=== PATIENT | male | born 1955 | race Caucasian/White ===

== ENCOUNTER → 2018-03-27 14:29 | Outpatient (CLI) | payer OTHER, SELFPAY ==
[2018-03-27 15:27] LABS: BUN Creatinine Ratio 18.8 (6-22); Blood Urea Nitrogen 15 mg/dL (9-20); Calcium 9.4 mg/dL (8.4-10.2); Carbon Dioxide 27 mmol/L (22-32); Chloride 102 mmol/L (98-107); Estimated Glomerular Filt Rate > 60.0 mL/min (>60); Glucose 80 mg/dL (80-110); HEMOLYSIS < 15 (0-50); Potassium 3.7 mmol/L (3.4-5.1); Sodium 141 mmol/L (137-145)
== END ==
PROVIDERS: Family Provider Family Medicine; PCP Family Medicine; Visit Provider Specialist
DX: R31.0 Gross hematuria (principal)
CPT/HCPCS: 36415; 80048

== ENCOUNTER → 2018-03-28 10:34 | Outpatient (CLI) | payer OTHER, SELFPAY ==
--- NOTE | 2018-03-28 | DI.CT.S_ITS ---
PROCEDURE: CT ABDOMEN PELVIS WO/W CON INDICATIONS: HEMATURIA. The patient gives an additional history of chronic left flank pain. TECHNIQUE: Optional 5 mm thick noncontrast images acquired from the diaphragm to the symphysis pubis. After the administration of intravenous contrast, 5 mm thick images acquired from the diaphragm to the symphysis pubis after a 10-minute delay. 2 mm thick coronal and sagittal reformats were then performed of the kidneys and ureters. For radiation dose reduction, the following was used: automated exposure control, adjustment of mA and/or kV according to patient size. COMPARISON: [facility], CT, ABDOMEN/PELVIS WITH CONTRAST, 03/31/2014, 8:16. FINDINGS: Image quality: Excellent. Lung bases: Within the right middle lobe, there is a poorly defined focus of subpleural soft tissue opacity measuring 6 mm, as on series 6 image 4. The lung bases otherwise appear clear. Heart size is normal. No pericardial effusions are seen. Urinary system: On noncontrast imaging, there is a 2-3 mm stone seen within the left mid ureter, as on series 2 image 41. There is associated mild left-sided hydronephrosis and hydroureter. No definite nonobstructing stones can be seen within either kidney. The kidneys demonstrate normal size. Along the superior medial aspect of the right kidney, there is a nonenhancing, water density cyst seen that measures 4.4 cm. A water density 16 mm nonenhancing cyst is seen involving the anterior superior pole of the left kidney. When filled with contrast, the renal calyces demonstrate a normal appearance. No ureteral masses are detected. No bladder stones or bladder masses can be seen. An apparent TURP defect can be seen at the base of the bladder. Other solid organs: Liver is normal in size and enhancement. Gallbladder wall is not thickened. Biliary system is non dilated. Pancreas enhances normally. Spleen is normal in size and enhancement. No adrenal nodules. Peritoneum and bowel: Bowel loops demonstrate normal wall thickness and caliber. No free fluid or air. Incidental note is made of a normal-appearing appendix. Diverticulosis is seen, without findings of active diverticulitis. Nodes and vessels: No retroperitoneal or mesenteric adenopathy by size criteria. Aorta and inferior vena cava are normal in size. Atherosclerotic calcification is noted. Abdominal wall: No ventral hernias. Pelvis: No pathologic free pelvic fluid. No inguinal hernias or adenopathy. Bones: No suspicious bony lesions. No vertebral body compression fractures. IMPRESSION: 2-3 mm stone seen within the left mid ureter, with associated mild left-sided hydronephrosis and hydroureter. There is a 6 mm subpleural right middle lobe soft tissue nodule seen. This is felt most likely be related to scarring or a subpleural lymph node. However, please consider a dedicated chest CT with contrast to evaluate for additional potential pulmonary nodules. Incidental note is made of: Simple appearing bilateral renal cysts Apparent TURP defect Diverticulosis is seen, without findings of active diverticulitis. Dictated by: Jeramy Munroe M.D. on 03/28/2018 at 10:22 Approved by: Jeramy Munroe M.D. on 03/28/2018 at 10:30
== END ==
PROVIDERS: PCP Family Medicine; Visit Provider Specialist
DX: N13.2 Hydronephrosis with renal and ureteral calculous obstruction (principal); R10.9 Unspecified abdominal pain; N28.1 Cyst of kidney, acquired; R59.1 Generalized enlarged lymph nodes; K57.30 Diverticulosis of large intestine without perforation or abscess without bleeding; R31.9 Hematuria, unspecified
CPT/HCPCS: 74178; Q9967

== ENCOUNTER 2019-03-24 18:47 | Emergency (ER) | payer OTHER, SELFPAY ==
[2019-03-24] VITALS (8 sets, daily range): BP systolic 101–124; BP diastolic 72–98; PULSE 93–156; RESP 12–20; TEMP 37; O2SAT 93–100
--- NOTE | 2019-03-24 18:53 | DI.RAD.S_ITS ---
PROCEDURE: XR CHEST 1V INDICATIONS: chest pain TECHNIQUE: One view of the chest was acquired. COMPARISON: None. FINDINGS: Surgical changes and devices: None. Lungs and pleura: Lungs are clear. No pleural effusions or pneumothorax. Mediastinum: Mediastinal contours appear normal. Heart size is normal. Bones and chest wall: No suspicious bony lesions. Overlying soft tissues appear unremarkable. IMPRESSION: No acute cardiopulmonary process is evident. Dictated by: John Frias M.D. on 03/24/2019 at 19:31 Approved by: John Frias M.D. on 03/24/2019 at 19:32
[2019-03-24 19:09] LABS: Add Manual Diff / Slide Review NO; Basophils Absolute Auto 100 /uL (0-100); Basophils Percent Auto 1.1 % (0-2); Eosinophils Absolute Auto 100 /uL (0-450); Hematocrit 44.2 % (41-53); Hemoglobin 15.4 g/dL (13.5-17.5); Lymphocytes Absolute Auto 1800 /uL (1100-4500); Lymphocytes Percent Auto 17.5 % (25-40); Mean Corpuscular HGB Conc 34.9 % (30-36); Mean Corpuscular Hemoglobin 32.4 PG (26-34); Mean Corpuscular Volume 92.9 fL (80-100); Monocytes Absolute Auto 800 /uL (0-900); Monocytes Percent Auto 7.6 % (3-14); Neutrophils Absolute Auto 7300 /uL (1500-7000); Neutrophils Percent Auto 72.8 % (50-75); Platelet Count 308 X10^3/uL (150-400); Red Blood Cell Count 4.76 X10^6/uL (4.5-5.9); Red Cell Distribution Width 13.3 % (11.6-14.8)
[2019-03-24 19:22] LABS: Prothrombin Time 11.4 SECONDS (10.1-12.7)
[2019-03-24 19:23] LABS: Alanine Aminotransferase 29 IU/L (21-72); Albumin 4.5 g/dL (3.5-5.0); Albumin Globulin Ratio 1.6 (1.0-2.8); Alkaline Phosphatase 71 U/L (38-126); Aspartate Aminotransferase 28 IU/L (17-59); BUN Creatinine Ratio 12.5 (6-22); Bilirubin Total 1.1 mg/dL (0.2-1.3); Blood Urea Nitrogen 15 mg/dL (9-20); Calcium 9.4 mg/dL (8.4-10.2); Carbon Dioxide 23 mmol/L (22-32); Chloride 105 mmol/L (98-107); Creatine Kinase 238 U/L (55-170); Estimated Glomerular Filt Rate > 60.0 mL/min (>60); Globulin 2.9 g/dL (1.7-4.1); Glucose 94 mg/dL (80-110); HEMOLYSIS < 15 (0-50); Lipase 167 U/L (23-300); Potassium 3.6 mmol/L (3.4-5.1); Sodium 138 mmol/L (137-145); Total Protein 7.4 g/dL (6.3-8.2)
[2019-03-24 19:25] LABS: PTT Partial Thromboplastin Tim 38 SECONDS (26.4-36.2)
--- NOTE | 2019-03-24 19:27 | ED.ARRPALP ---
HPI - Arrhythmia/Palpitations General Chief Complaint: Arrhythmia/Palpitations Stated Complaint: FAST PULSE Time Seen by Provider: 03/24/19 18:52 Source: patient Mode of arrival: ambulatory Limitations: no limitations History of Present Illness HPI narrative: Patient is a 63-year-old male who presents with heart palpitations. He has a history of atrial fibrillation. He is taking diltiazem he also has cardiac stents. He has a heart rate noted to be 150 in the ED. He said he noticed it initially and it was in the 180s. He tried to do Valsalva maneuvers at home it did not really help. However nursing got him to do some prior to my arrival and he is now covered sinus rhythm overall feeling better. He was having shortness of breath with the episode. No chest pain no dizziness. MD complaint: rapid heart beat and heart racing Related Data Home Medications Medication Instructions Recorded Confirmed aspirin 81 mg PO QDAY #30 tab 06/02/16 03/24/19 hydralazine 25 mg PO TID #0 06/02/16 03/24/19 atorvastatin 40 mg PO DAILY 03/24/19 03/24/19 carvedilol 12.5 mg PO BID 03/24/19 03/24/19 clopidogrel 75 mg PO DAILY 03/24/19 03/24/19 diltiazem HCl 180 mg PO DAILY 03/24/19 03/24/19 nitroglycerin 1 patch TRANSDERMAL DAILY 03/24/19 03/24/19 pantoprazole 40 mg PO DAILY 03/24/19 03/24/19 ramipril 10 mg PO DAILY 03/24/19 03/24/19 ranolazine 500 mg PO BID 03/24/19 03/24/19 spironolactone 25 mg PO DAILY 03/24/19 03/24/19 Allergies Allergy/AdvReac Type Severity Reaction Status Date / Time No Known Drug Allergies Allergy Verified 03/24/19 19:34 Review of Systems Review of Systems ROS Unobtainable: All systems reviewed & are unremarkable except as noted in HPI and below Constitutional Denies chills, Denies fever(s), Denies lethargy and Denies weakness Eyes Denies change in vision, Denies eye discharge, Denies irritation and Denies loss of vision ENT Ears, Nose, Mouth, and Throat: Denies change in voice, Denies neck pain and Denies sore throat Cardiovascular Reports as per HPI, Denies dyspnea and Denies dyspnea on exertion Respiratory Denies cough, Denies dyspnea, Denies dyspnea on exertion and Denies wheezing Gastrointestinal Gastrointestinal: Denies abdominal pain, Denies change in bowel habits, Denies diarrhea, Denies nausea and Denies vomiting Genitourinary Denies hematuria, Denies flank pain, Denies urinary incontinence and Denies urinary urgency Musculoskeletal Denies neck pain Integumentary/Breasts Denies pruritus, Denies erythema, Denies rash and Denies wounds Neurologic Denies loss of vision and Denies weakness Allergic/Immunologic Denies wheezing [facility] Medical History Atrial fibrillation (Acute) Social History Smoking Status: Current every day smoker Social History Smoking Status: Current every day smoker Exam Initial Vital Signs Initial Vital Signs: Vital Signs Temperature 98.6 F 03/24/19 18:50 Pulse Rate 156 H 03/24/19 18:50 Respiratory Rate 20 03/24/19 18:50 Blood Pressure 124/76 03/24/19 18:50 Pulse Oximetry 99 03/24/19 18:50 GENERAL: Alert pleasant appears older than stated age no acute distress HEENT: Head atraumatic,EOMI, pupils reactive, face symmetric, moist mucous membranes CARDIOVASCULAR: Regular rate and rhythm without murmurs, rubs or gallops. RESPIRATORY: Breath sounds equal bilaterally, no wheezes rales or rhonchi. ABDOMEN: Soft, nontender. Normoactive bowel sounds all 4 quadrants. No guarding or rebound. EXTREMITIES: Normal range of motion, no clubbing or edema. Neurovascularly intact NEUROLOGICAL: Alert and oriented x4.Normal gait and speech. Cranial nerves II through XII grossly intact. SKIN: Warm, dry, no laceration, no petechiae, no rashes or lesions. Course Orders Ordered: ED Orders 03/24/19 18:53 XR chest 1V Stat EKG-12 Lead Stat 03/24/19 19:00 Complete Blood Count AUTO DIFF Stat Comprehensive Metabolic Panel Stat Lipase Stat Partial Thromboplastin Time Stat Prothrombin Time INR Stat Troponin & CK Cardiac Panel Stat Discontinued Medications Sodium Chloride (Normal Saline 0.9%) 1,000 mls @ 150 mls/hr IV CONT MARCO A Last Infusion: 03/24/19 20:33 Dose: 0 mls/hr Admin: 03/24/19 19:33 Dose: 150 mls/hr Vital Signs - 8 hr 03/24/19 18:50 03/24/19 18:55 03/24/19 19:00 Temperature 98.6 F Pulse Rate 150 H 100 H 102 H Respiratory Rate 15 12 12 Blood Pressure 124/76 Blood Pressure [Left Arm] 124/76 112/98 H 118/92 H Pulse Oximetry 100 100 100 03/24/19 19:05 03/24/19 19:10 03/24/19 19:15 Temperature Pulse Rate 98 H 98 H 97 H Respiratory Rate 14 16 12 Blood Pressure Blood Pressure [Left Arm] 112/81 103/72 101/78 Pulse Oximetry 98 98 98 03/24/19 19:30 03/24/19 20:04 Temperature Pulse Rate 98 H 93 H Respiratory Rate 14 13 Blood Pressure Blood Pressure [Left Arm] 124/81 118/81 Pulse Oximetry 93 93 MDM - Arrhythmia/Palpitations Lab Data Attestation: I reviewed the patient's lab results. Result diagrams: 03/24/19 19:00 03/24/19 19:00 Lab Results 03/24/19 03/24/19 03/24/19 Range/Units 19:00 19:00 19:00 WBC 10.0 (4.5-11.0) X10^3/uL RBC 4.76 (4.5-5.9) X10^6/uL Hgb 15.4 (13.5-17.5) g/dL Hct 44.2 (41-53) % MCV 92.9 (80-100) fL MCH 32.4 (26-34) PG MCHC 34.9 (30-36) % RDW 13.3 (11.6-14.8) % Plt Count 308 (150-400) X10^3/uL Neut % (Auto) 72.8 (50-75) % Lymph % (Auto) 17.5 L (25-40) % [place] % (Auto) 7.6 (3-14) % Eos % (Auto) 1.0 L (2-4) % Baso % (Auto) 1.1 (0-2) % Neut # (Auto) 7300 H (1703-6511) /uL Lymph # (Auto) 1800 (6359-5482) /uL Haakon # (Auto) 800 (0-900) /uL Eos # (Auto) 100 (0-450) /uL Baso # (Auto) 100 (0-100) /uL PT 11.4 (10.1-12.7) SECONDS INR 1.0 (0.9-1.3) APTT 38 H (26.4-36.2) SECONDS Sodium 138 (137-145) mmol/L Potassium 3.6 (3.4-5.1) mmol/L Chloride 105 (98-107) mmol/L Carbon Dioxide 23 (22-32) mmol/L BUN 15 (9-20) mg/dL Creatinine 1.20 (0.66-1.25) mg/dL Estimated GFR > 60.0 (>60) mL/min BUN/Creatinine Ratio 12.5 (6-22) Glucose 94 (80-110) mg/dL Calcium 9.4 (8.4-10.2) mg/dL Total Bilirubin 1.1 (0.2-1.3) mg/dL AST 28 (17-59) IU/L ALT 29 (21-72) IU/L Alkaline Phosphatase 71 (38-126) U/L Total Creatine Kinase 238 H (55-170) U/L CK-MB (CK-2) 5.15 H (<2.37) ng/mL CK-MB (CK-2) Rel Index 2.2 (1.5-5.0) % Troponin I < 0.012 (0.01-0.034) ng/mL Total Protein 7.4 (6.3-8.2) g/dL Albumin 4.5 (3.5-5.0) g/dL Globulin 2.9 (1.7-4.1) g/dL Albumin/Globulin Ratio 1.6 (1.0-2.8) Lipase 167 (23-300) U/L Urine Dip Bedside Urine Glucose Negative Bedside Urine Bilirubin - Negative Bedside Urine Ketone +/- 5 Urine Specific [place] 1.015 Bedside Urine Occult Blood - Negative Bedside Urine pH 7.0 Bedside Urine Protein +/- 15 Bedside Urine Urobilinogen - Negative Bedside Urine Nitrite - Negative Bedside Urine Leukocytes - Negative Esterase Imaging Data Chest x-ray: Radiologist's impression: PROCEDURE: XR CHEST 1V INDICATIONS: chest pain TECHNIQUE: One view of the chest was acquired. COMPARISON: None. FINDINGS: Surgical changes and devices: None. Lungs and pleura: Lungs are clear. No pleural effusions or pneumothorax. Mediastinum: Mediastinal contours appear normal. Heart size is normal. Bones and chest wall: No suspicious bony lesions. Overlying soft tissues appear unremarkable. IMPRESSION: No acute cardiopulmonary process is evident. Dictated by: John Frias M.D. on 03/24/2019 at 19:31 Approved by: John Frias M.D. on 03/24/2019 at 19:3 ECG Data Attestation: I personally reviewed and interpreted this ECG as follows: Prior ECG tracings: available for review Interpretation: EKG 1. Atrial fibrillation with 1:[address] changes EKG 2. Normal sinus rhythm rate [address] changes or T-wave inversions MDM Narrative Medical decision making narrative: Patient has remained in sinus rhythm. Blood work is reassuring. Recommend he follow up with his PCP. Discharge Plan Departure Patient Disposition: Home Clinical Impression: Atrial fibrillation Qualifiers: Atrial fibrillation type: paroxysmal Qualified Code(s): I48.0 - Paroxysmal atrial fibrillation Discharge Date/Time: 03/24/19 20:44 Interventions: ED Discharge Assessment Last Done: 03/24/19 20:43 Instructions: DI for Atrial Fibrillation Activity Restrictions/Additional Instructions: *You have been diagnosed with atrial fibrillation *What to do: Try bearing down at home if this should happen again. If you continue to have frequent episodes he may require evaluation by Cardiology *Continue to take medications as directed *Follow up with your primary care provider in 2-3 days *Return to ER if you should have heart palpitations dizziness passing or any new, worsening or concerning symptoms Prescriptions: No Action aspirin 81 MG tablet,delayed release (DR/EC) 81 mg PO QDAY Qty: 30 RF: 0 hydralazine 25 MG tablet 25 mg PO TID Qty: 0 RF: 0 atorvastatin 40 mg Tablet 40 mg PO DAILY RF: 0 carvedilol 12.5 mg Tablet 12.5 mg PO BID RF: 0 diltiazem HCl 180 mg Capsule,Extended Release 24 Hr 180 mg PO DAILY RF: 0 clopidogrel 75 mg Tablet 75 mg PO DAILY RF: 0 spironolactone 25 mg Tablet 25 mg PO DAILY RF: 0 nitroglycerin 0.4 mg/hr Patch 24 Hour 1 patch TRANSDERMAL DAILY RF: 0 pantoprazole 40 mg Tablet,Delayed Release (Dr/Ec) 40 mg PO DAILY RF: 0 ramipril 10 mg Capsule 10 mg PO DAILY RF: 0 ranolazine 500 mg Tablet Extended Release 12 Hr 500 mg PO BID RF: 0 Referrals: David Moore MD [Primary Care Provider] -
[2019-03-24] MEDS: SODIUM CHLORIDE 0.9% 1,000 ML 150 ML IV (19:33)
[2019-03-24 19:35] LABS: Troponin I < 0.012 ng/mL (0.01-0.034)
[2019-03-24 19:38] LABS: CKMB % Relative Index 2.2 % (1.5-5.0); Creatine Kinase MB 5.15 ng/mL (<2.37)
== END 2019-03-24 20:44 | disposition home or self-care (01) ==
PROVIDERS: Emergency Provider Emergency Medicine; PCP Family Medicine
DX: I48.0 Paroxysmal atrial fibrillation (principal); Z95.818 Presence of other cardiac implants and grafts
CPT/HCPCS: 36591; 71045; 80053; 81003; 82550; 82553; 83690; 84484; 85025; 85610; 85730; 93005; 93041; 96360; 99285

== ENCOUNTER → 2020-05-19 08:00 | Outpatient (CLI) | payer OTHER, SELFPAY ==
--- NOTE | 2020-05-19 | DI.US.S_ITS ---
PROCEDURE: US ABD AORTA ANEURYSM SCREEN INDICATIONS: Cigerette smoker/Hypertension TECHNIQUE: Real time scanning was performed of the aorta and iliac arteries, with image documentation. COMPARISON: [facility], CT, CT ABDOMEN PELVIS WO/W URIAH, 03/28/2018, 10:40. FINDINGS: Aorta: Proximal aortic diameter measures 3 cm. Mid-aorta measures 2.3 cm. Distal aortic diameter is 2 cm. Iliac arteries: Right common iliac artery measures 2 cm. Left common iliac artery measures 2.2 cm. Moderate calcified atherosclerotic plaque. IMPRESSION: 1. No abdominal aortic aneurysm. 2. Ectasia of the common iliac arteries. Follow-up ultrasound in 3 years is recommended. Dictated by: Fidencio Hamilton M.D. on 05/19/2020 at 10:11 Approved by: Fidencio Hamilton M.D. on 05/19/2020 at 10:14
== END ==
PROVIDERS: PCP Student in an Organized Health Care Education/Training Program; Referring Provider Student in an Organized Health Care Education/Training Program; Visit Provider Student in an Organized Health Care Education/Training Program
DX: Z13.6 Encounter for screening for cardiovascular disorders (principal); I10 Essential (primary) hypertension; I77.89 Other specified disorders of arteries and arterioles; F17.210 Nicotine dependence, cigarettes, uncomplicated
CPT/HCPCS: 76706

== ENCOUNTER 2021-05-02 13:30 | Outpatient (RCR) | payer OTHER, SELFPAY ==
--- NOTE | 2021-03-24 16:03 | PT.OIE ---
Current Diagnoses Muscle weakness (generalized) (03/24/21) Other synovitis and tenosynovitis, unspecified shoulder (03/24/21) Abnormal posture (03/24/21) Past Medical History (Last Reviewed 03/24/19 @ 20:09 by Criselda Herman DO) Atrial fibrillation Visit Care Team Role Provider Type Amanda Diop MD Attending Provider Physician Primary Care Provider Referring Provider Specialty: [facility] Address: [address] [place] [address], [facility] [place], [facility] Email: [email or web address] Physical Therapy Initial Evaluation PT-OP-A Visit Information Start: 03/24/21 08:11 Freq: Status: Active Protocol: Document 03/24/21 14:17 LRN (Rec: 03/24/21 15:55 LRN [id number]) Out-Patient Physical Therapy Visit Information Visit Information Visit Type Initial Evaluation Visit Start Time 14:17 Visit Stop Time 15:13 Total Visit Minutes 56 Visit Number 1 Evaluation Information Evaluation Date 03/24/21 Precautions Precautions Controlled HBP 2 Stents in heart 4-5 yrs ago. PT-OP-B Current Condition Start: 03/24/21 08:11 Freq: Status: Active Protocol: Document 03/24/21 14:17 LRN (Rec: 03/24/21 15:55 LRN [id number]) Current Condition History of Current Condition Onset Date 1 yr ago Current Complaints L shoulder pain History of Current Condition Pt was crab and sport fishing and found he was constantly turning the wheel of the boat and that is when he started to feel discomfort in the L shoulder. His L shoulder has progressively worsened and now is unable to sleep through the night with his L shoulder waking him up in middle of the night. His arm now sometimes hurts with just the weight of the arm hanging down at rest. Pt is R handed. Prior Treatments and Tests None Treatment Goals Patient/Caregiver Goals Pt ultimate goal is to return to prior level of function for painfree ability to crab fish . Other goals are to improve sleep with pt able to sleep on L side, Less onset of sharp pain with dressing (putting shirt on or pulling up pants), Less sharp pain bathing. Less sharp pain with driving or buckling seat belt. 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 PT-OP-C Subjective Start: 03/24/21 08:11 Freq: Status: Active Protocol: Document 03/24/21 14:17 LRN (Rec: 03/24/21 15:55 LRN [id number]) Patient Questionnaires Quick Dash- Upper Extremity Quick Dash UE Score 40.90 Quick Dash UE Impairment 40 to 59% Impaired (Score 40- 59) OP-PT Pain Assessment Pain Assessment Grid Paper Pain Assessment Grid Completed Yes Location Left Shoulder Pain Location Details Subacromial, ACJ, Coracoid process Intensity 6 Scale Used Numeric (0 - 10) Description Aching,Sharp Frequency Frequent Pain Aggravating Factors Position,ADL's,Activity PT-OP-E Functional Tests Start: 03/24/21 08:11 Freq: Status: Active Protocol: Document 03/24/21 14:17 LRN (Rec: 03/24/21 15:55 LRN [id number]) Functional Tests Apley's Scratch Test Action 1- Left Inferior to scapular spine Action 1- Right Posterior scapula Action 2- Left C7 Action 2- Right T5 Action 3- Left L2 Action 3- Right T9 PT-OP-J Posture/Palpation/Skin Start: 03/24/21 08:11 Freq: Status: Active Protocol: Document 03/24/21 14:17 LRN (Rec: 03/24/21 15:55 LRN [id number]) Posture Evaluation Position Standing Shoulder Posture Neutral Comments Posture Comments Wide stance , arms IR, Elevated L shoulder, Increased kyph, dowager, flat between T3-T6 Palpation Assessment Location R shoulder Palpation Location Biceps anter shouldewr, ACJ, Subacromial, Palpation Findings Tenderness Palpation Details L Clavicle elevated Elevated separation at ACJ No tenderness in L Anterior scalenes, Pec, posterior scapula Tender L deltoid medial and referred medial from posterior deltoid. Tight L Neck ms. PT-OP-K Range of Motion Start: 03/24/21 08:11 Freq: Status: Active Protocol: Document 03/24/21 14:17 LRN (Rec: 03/24/21 15:55 LRN [id number]) Cervical Spine Range of Motion Cervical Spine Active Percentage Flexion 100 Extension 80 Rotation Left 75 Rotation Right 85 Lateral Flexion Left 60 Lateral Flexion Right 80 ROM Limitations Soft Tissue Tightness Shoulder Goniometric Range of Motion Shoulder Right Passive Shoulder ROM WFL Yes Testing Position Supine Comments PROM is WNL Left Passive Shoulder ROM WFL Yes Testing Position Supine Comments PROM is WNL without pain Right Active Shoulder ROM WFL Yes Testing Position Sitting Flexion 175 Extension 70 Abduction 180 External Rotation at 0 degrees Abduction 68 Internal Rotation Behind Back (text) T9 Left Active Shoulder ROM WFL No Testing Position Sitting Flexion 95 Extension 63 Abduction 65 External Rotation at 0 degrees Abduction 50 Internal Rotation Behind Back (text) L2 Elbow/Forearm Range of Motion Elbow/Forearm Right Active Elbow/Forearm ROM WFL Yes ROM Testing Position Sitting Left Active Elbow/Forearm ROM WFL Yes ROM Testing Position Sitting PT-OP-L Special Tests Start: 03/24/21 08:11 Freq: Status: Active Protocol: Document 03/24/21 14:17 LRN (Rec: 03/24/21 15:55 LRN [id number]) Special Tests Cervical Spine Special Tests Traction Test Results Negative Comments No change with pain Foraminal Compression Test Results negative Comments No change with pain Shoulder Special Tests Passive ER Rotator Cuff Test Results + Left Comments Pain at end range. Roberto Jack Impingement Test Results + Left Comments Pain Elevation Impingement Test Results + Left Comments Pain PT-OP-M Strength Start: 03/24/21 08:11 Freq: Status: Active Protocol: Document 03/24/21 14:17 LRN (Rec: 03/24/21 15:55 LRN [id number]) Shoulder Strength Shoulder Manual Muscle Testing Right Comments 5/5 generally Left Flexion 3- Fair- Extension 5 Normal Abduction (C5) 3- Fair- Adduction 5 Normal External Rotation 3- Fair- Internal Rotation 4+ Good+ Elbow/Forearm Strength Elbow and Forearm Manual Muscle Testing Right Comments 5/5 generally Left Comments 5/5 generally PT-OP-Q Treatments Start: 03/24/21 08:11 Freq: Status: Active Protocol: Document 03/24/21 14:17 LRN (Rec: 03/24/21 15:55 LRN [id number]) Self-Care/Home Management Treatment Education Patient Education Home Exercise Program,Joint Protection,Pain Management Other Education Discussed results of evaluation, discussed goals at length, and discussed plan of care with recommendation of requesting being nutrition partner in order to prevent having to wait 2 weeks before next visit . Discussed/educated pt in movement precautions (no lifting with elbows away from body), and no reaching away from body or overhead. Educated pt cryotherapy use, recommending icing as needed. Educated pt in proper method for using cryotherapy (times, duration). Educated pt in best positioning at nighttime with support to LUE (hugging a pillow) and avoiding lying on L side. Activities Self-Care/Home Management Activities I/S pt in Active L shoulder windshield wipe (active shoulder ER/IR with elbows by sides) with pt doing to both sides. I/S pt in scapular pinches with end-range ER during windshield wipe exercise. PT-OP-T Assessment and Plan Start: 03/24/21 08:11 Freq: Status: Active Protocol: Document 03/24/21 14:17 LRN (Rec: 03/24/21 15:55 LRN [id number]) Physical Therapy Assessment Rehab Potential Rehabilitation Potential Good Evaluation Complexity Number of Personal Factors/Comorbidities 1-2 Number of Body Systems Impaired 4 or More Clinical Presentation at Evaluation Evolving Impairments Impairments Activity Tolerance,Pain,ROM, Strength Other Impairments Difficulty sleeping Goals Four Impairment Decreased sleeping ability ( wakens by L shoulder pain during the night) Short Term Goal (STG) Pt will be independent in scapular stabilizing ex's and neck stretch ex's. STG Duration 04/15/21 Roller Skater Goal (LTG) Pt goal is to improve sleep with pt able to sleep through the night without L shoulder pain and ability to tolerate L sidelying intermittently during the night. LTG Duration 06/22/21 Three Impairment Decreased L shoulder strength Short Term Goal (STG) Less or no sharp L shoulder pain with bathing. 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 LTG Duration 06/22/21 Two Impairment Decreased L shoulder AROM Short Term Goal (STG) None or less L shoulder pain with buckling of seat belt. STG Duration 05/06/21 [place] Skater Goal (LTG) Less onset of sharp pain with dressing (putting shirt on or pulling up pants) LTG Duration 06/22/21 One Impairment HEP Roller Skater Goal (LTG) Independent with a self care HEP for L shoulder/scapula/ posture. LTG Duration 06/22/21 Assessment Summary Assessment Pt is a 65 yo male who presents with primarily soft tissue dysfunction of the L rotator cuff muscles and pain only with active use of L arm. He has no pain with L shoulder PROM in supine except for end-range ER (past 90 deg 's). He demonstrates tightness of the L neck and scapular stabilizing muscles and demonstrates postural changes (elevated L shoulder and scapula). He doesn't show signs of cervical involvement at this time. 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 He appears to have a high pain tolerance and has been encouraged to verbalize when he is starting to feel pain in order to reduce pain/ inflammation and promote normal painfree mobility of the L shoulder prior to more aggressive strengthening. The pt will benefit from skilled physical therapy to achieve the above stated goals. Physical Therapy Plan Frequency and Duration Frequency of Treatment 2x/Week Plan of Care Start Date 03/24/21 Plan of Care End Date 06/22/21 Therapeutic Interventions Therapeutic Interventions Home Exercise Program,Joint Mobilizations,Manual Therapy, Patient/Caregiver Education, Self-Care/Home Management,Soft Tissue Mobilization,Taping, Therapeutic Activities, Therapeutic Exercises Modalities Cold Pack/Ice Massage,Electric Stimulation,Hot Packs, Ultrasound Next Visit Focus/Plan Next Note Type Treatment Note Next Visit Plan Review self care program of nighttime position (supporting L arm -hug a pillow), pain management techniques (issue RICE treatment), ex's: active shoulder ER/IR and scapular squeezes. Rehab program to decrease ms tightness of L neck/UT for proper scapular positioning; L Scapular stabilization; progressive L RC strengthening without increasing inflammation, end with modalities of US to L subacrominal and/or ACJ region or laser treatment. Possible use of K-tape to facilitate L RC and proper L Scapulohumeral rhythm. Pt to end with cryotherapy at clinic or home.
--- NOTE | 2021-03-29 10:54 | PT.OTN ---
Current Diagnoses Muscle weakness (generalized) (03/29/21) Other synovitis and tenosynovitis, unspecified shoulder (03/29/21) Abnormal posture (03/29/21) Physical Therapy Treatment Note PT-OP-A Visit Information Start: 03/24/21 08:11 Freq: Status: Active Protocol: Document 03/29/21 09:48 LRN (Rec: 03/29/21 10:52 LRN [id number]) Out-Patient Physical Therapy Visit Information Visit Information Visit Type Treatment Note Visit Start Time 09:48 Visit Stop Time 10:35 Total Visit Minutes 47 Visit Number 2 Precautions Precautions Controlled HBP 2 Stents in heart 4-5 yrs ago. PT-OP-B Current Condition Start: 03/24/21 08:11 Freq: Status: Active Protocol: Document 03/24/21 14:17 LRN (Rec: 03/24/21 15:55 LRN [id number]) Current Condition History of Current Condition Onset Date 1 yr ago Current Complaints L shoulder pain History of Current Condition Pt was crab and sport fishing and found he was constantly turning the wheel of the boat and that is when he started to feel discomfort in the L shoulder. His L shoulder has progressively worsened and now is unable to sleep through the night with his L shoulder waking him up in middle of the night. His arm now sometimes hurts with just the weight of the arm hanging down at rest. Pt is R handed. Prior Treatments and Tests None Treatment Goals Patient/Caregiver Goals Pt ultimate goal is to return to prior level of function for painfree ability to crab fish . Other goals are to improve sleep with pt able to sleep on L side, Less onset of sharp pain with dressing (putting shirt on or pulling up pants), Less sharp pain bathing. Less sharp pain with driving or buckling seat belt. 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 PT-OP-C Subjective Start: 03/24/21 08:11 Freq: Status: Active Protocol: Document 03/29/21 09:48 LRN (Rec: 03/29/21 10:52 LRN [id number]) OP-PT Subjective Patient Comments Patient Comments Same, icing it more, 2-3x/day. Trying to do ex's. Pain is the same if getting it the wrong position or use. States he is comfortable going to sleep if on back or R side, its not horrible. The L arm stays down he's okay. PT-OP-E Functional Tests Start: 03/24/21 08:11 Freq: Status: Active Protocol: Document 03/24/21 14:17 LRN (Rec: 03/24/21 15:55 LRN [id number]) Functional Tests Apley's Scratch Test Action 1- Left Inferior to scapular spine Action 1- Right Posterior scapula Action 2- Left C7 Action 2- Right T5 Action 3- Left L2 Action 3- Right T9 PT-OP-J Posture/Palpation/Skin Start: 03/24/21 08:11 Freq: Status: Active Protocol: Document 03/24/21 14:17 LRN (Rec: 03/24/21 15:55 LRN [id number]) Posture Evaluation Position Standing Shoulder Posture Neutral Comments Posture Comments Wide stance , arms IR, Elevated L shoulder, Increased kyph, dowager, flat between T3-T6 Palpation Assessment Location R shoulder Palpation Location Biceps anter shouldewr, ACJ, Subacromial, Palpation Findings Tenderness Palpation Details L Clavicle elevated Elevated separation at ACJ No tenderness in L Anterior scalenes, Pec, posterior scapula Tender L deltoid medial and referred medial from posterior deltoid. Tight L Neck ms. PT-OP-K Range of Motion Start: 03/24/21 08:11 Freq: Status: Active Protocol: Document 03/24/21 14:17 LRN (Rec: 03/24/21 15:55 LRN [id number]) Cervical Spine Range of Motion Cervical Spine Active Percentage Flexion 100 Extension 80 Rotation Left 75 Rotation Right 85 Lateral Flexion Left 60 Lateral Flexion Right 80 ROM Limitations Soft Tissue Tightness Shoulder Goniometric Range of Motion Shoulder Right Passive Shoulder ROM WFL Yes Testing Position Supine Comments PROM is WNL Left Passive Shoulder ROM WFL Yes Testing Position Supine Comments PROM is WNL without pain Right Active Shoulder ROM WFL Yes Testing Position Sitting Flexion 175 Extension 70 Abduction 180 External Rotation at 0 degrees Abduction 68 Internal Rotation Behind Back (text) T9 Left Active Shoulder ROM WFL No Testing Position Sitting Flexion 95 Extension 63 Abduction 65 External Rotation at 0 degrees Abduction 50 Internal Rotation Behind Back (text) L2 Elbow/Forearm Range of Motion Elbow/Forearm Right Active Elbow/Forearm ROM WFL Yes ROM Testing Position Sitting Left Active Elbow/Forearm ROM WFL Yes ROM Testing Position Sitting PT-OP-L Special Tests Start: 03/24/21 08:11 Freq: Status: Active Protocol: Document 03/24/21 14:17 LRN (Rec: 03/24/21 15:55 LRN [id number]) Special Tests Cervical Spine Special Tests Traction Test Results Negative Comments No change with pain Foraminal Compression Test Results negative Comments No change with pain Shoulder Special Tests Passive ER Rotator Cuff Test Results + Left Comments Pain at end range. Roberto Jack Impingement Test Results + Left Comments Pain Elevation Impingement Test Results + Left Comments Pain PT-OP-M Strength Start: 03/24/21 08:11 Freq: Status: Active Protocol: Document 03/24/21 14:17 LRN (Rec: 03/24/21 15:55 LRN [id number]) Shoulder Strength Shoulder Manual Muscle Testing Right Comments 5/5 generally Left Flexion 3- Fair- Extension 5 Normal Abduction (C5) 3- Fair- Adduction 5 Normal External Rotation 3- Fair- Internal Rotation 4+ Good+ Elbow/Forearm Strength Elbow and Forearm Manual Muscle Testing Right Comments 5/5 generally Left Comments 5/5 generally PT-OP-Q Treatments Start: 03/24/21 08:11 Freq: Status: Active Protocol: Document 03/29/21 09:48 LRN (Rec: 03/29/21 10:52 LRN [id number]) Therapeutic Exercises Supine Exercises Shoulder ER Supine Exercise Name Active Assisted ER with elbow in 45 deg's AB Side left Reps/Minutes 10x L shoulder AA AB Supine Exercise Name Active Assisted shoulder AB Side left Reps/Minutes 10x Comments Extra time to determine painfree movement assist L arm circles Supine Exercise Name Assisted arm circles Side left Reps/Minutes 10x CW & CCW L shoulder AA Flex Supine Exercise Name Active Assisted 90-180 deg's flexion Side left Reps/Minutes 10x AA punch to ceiling Supine Exercise Name Elbow flexed punching to ceiling Side left Reps/Minutes 10x Scapular pinches Supine Exercise Name Scapular pinches after Pec stretch Side bilateral Reps/Minutes 3' Standing Exercises C/S rotation Standing Exercise Name Rot stretch Side bilateral Reps/Minutes 10 x 5 each UT stretch Standing Exercise Name UT stretch Side bilateral Reps/Minutes 10 hold x 6 each Comments Extra time for training for max positional stretch Scapular Pinches Standing Exercise Name 35 from wall: Scapular pinch Side bilateral Equipment Used Lev 1 Reps/Minutes 10x 3 Shoulder IR Standing Exercise Name 35 from wall: shoulder IR Side left Equipment Used Lev 1 Reps/Minutes 8x 3 Shoulder ER Standing Exercise Name 26.5 from wall: Butch Shoulder ER, elbows at sides Equipment Used Lev 1 Reps/Minutes 8x 3 Manual Therapy Treatment Soft Tissue Mobilization L Pec stretch Body Location Pec stretch Mobilization Type Myofascial Release,Sustained Pressure Intensity/Depth Moderate Body Position Supine Self-Care/Home Management Treatment Education Patient Education Home Exercise Program,Pain Management Other Education Educated pt in ex tolerance signs for limiting ex due to pain with tension or reps and another discussion of use of ice after ex and after pain with movement. Activities Self-Care/Home Management Activities I/S pt in HEP: T-Band shoulder ER/IR/scapular pinch row, & supine AAROM with cane: ceiling punch f/b max flexion, shoulder AB (sliding arm & not lifting), and ER/IR with elbow away from body. Issued Lev 2 TBand and door anchoring white strap. I/S pt to continue use of ice to L shoulder PT-OP-R Modalities Start: 03/24/21 08:11 Freq: Status: Active Protocol: Document 03/29/21 09:48 LRN (Rec: 03/29/21 10:52 LRN [id number]) Ultrasound Therapy Treatment L anterior shoulder Treatment Duration (minutes) 8 Patient Position Supine Coupling Medium Ultrasound Gel Applicator Size (cm2) 10 Mode Setting Continuous Intensity Setting (w/cm2) 1.0 PT-OP-T Assessment and Plan Start: 03/24/21 08:11 Freq: Status: Active Protocol: Document 03/29/21 09:48 LRN (Rec: 03/29/21 10:52 LRN [id number]) Physical Therapy Assessment Goals Four Impairment Decreased sleeping ability ( wakens by L shoulder pain during the night) Short Term Goal (STG) Pt will be independent in scapular stabilizing ex's and neck stretch ex's. (03/29/21: I/S pt in ex's, but HEP not yet issued) STG Duration 04/15/21 (03/29/21: Progressed) Jail Goal (LTG) Pt goal is to improve sleep with pt able to sleep through the night without L shoulder pain and ability to tolerate L sidelying intermittently during the night. LTG Duration 06/22/21 Three Impairment Decreased L shoulder strength Short Term Goal (STG) Less or no sharp L shoulder pain with bathing. STG Duration 05/06/21 Jail Goal (LTG) Prior level of function w/o L shoulder pain (Less or no sharp pain with driving and confident in ability to go crab fishing) and ability to return to working on his boat in prep for [employer] season. LTG Duration 06/22/21 Two Impairment Decreased L shoulder AROM Short Term Goal (STG) None or less L shoulder pain with buckling of seat belt. STG Duration 05/06/21 Jail Goal (LTG) Less onset of sharp pain with dressing (putting shirt on or pulling up pants) LTG Duration 06/22/21 One Impairment HEP Jail Goal (LTG) Independent with a self care HEP for L shoulder/scapula/ posture. (03/29/21: Progressed with verbal I/S of HEP) LTG Duration 06/22/21 Assessment Summary Assessment Pt presents with primarily soft tissue dysfunction of the L rotator cuff muscles and pain only with active use of L arm, no pain with PROM. Pt able to position at night comfortably; therefore held nighttime positioning training . Pt L shoulder pain at night comes with uncontrolled positioning. The pt was able to control onset of pain with ex's in standing and with AAROM in supine. Pt appears to have a good understanding of limiting ex per pain onset. Physical Therapy Plan Frequency and Duration Frequency of Treatment 2x/Week Plan of Care Start Date 03/24/21 Plan of Care End Date 06/22/21 Next Visit Focus/Plan Next Note Type Treatment Note Next Visit Plan Assess response to US. Review pain management techniques ( issue RICE treatment), review & issue ex's: active & AA shoulder ER/IR, and scapular pinches, ARROM (ER/IR/Row) & neck stretches (SB, rot). Continue rehab program for proper scapular positioning; L Scapular stabilization; progressive L RC strengthening without increasing inflammation, end with modalities of US to L anterior shoulder and/or ACJ region or laser treatment. Possible use of K-tape to facilitate L RC and proper L Scapulohumeral rhythm. Pt to end with cryotherapy at clinic or home.
--- NOTE | 2021-04-05 10:19 | PT.OTN ---
Current Diagnoses Muscle weakness (generalized) (04/05/21) Other synovitis and tenosynovitis, unspecified shoulder (04/05/21) Abnormal posture (04/05/21) Physical Therapy Treatment Note PT-OP-A Visit Information Start: 03/24/21 08:11 Freq: Status: Active Protocol: Document 04/05/21 10:07 OF (Rec: 04/05/21 10:18 OF [email or web address]) Out-Patient Physical Therapy Visit Information Visit Information Visit Type Treatment Note Visit Start Time 09:38 Visit Stop Time 10:07 Total Visit Minutes 29 Visit Number 3 Evaluation Information Evaluation Date 03/24/21 Precautions Precautions Controlled HBP 2 Stents in heart 4-5 yrs ago. PT-OP-B Current Condition Start: 03/24/21 08:11 Freq: Status: Active Protocol: Document 03/24/21 14:17 LRN (Rec: 03/24/21 15:55 LRN [id number]) Current Condition History of Current Condition Onset Date 1 yr ago Current Complaints L shoulder pain History of Current Condition Pt was crab and sport fishing and found he was constantly turning the wheel of the boat and that is when he started to feel discomfort in the L shoulder. His L shoulder has progressively worsened and now is unable to sleep through the night with his L shoulder waking him up in middle of the night. His arm now sometimes hurts with just the weight of the arm hanging down at rest. Pt is R handed. Prior Treatments and Tests None Treatment Goals Patient/Caregiver Goals Pt ultimate goal is to return to prior level of function for painfree ability to crab fish . Other goals are to improve sleep with pt able to sleep on L side, Less onset of sharp pain with dressing (putting shirt on or pulling up pants), Less sharp pain bathing. Less sharp pain with driving or buckling seat belt. 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 PT-OP-C Subjective Start: 03/24/21 08:11 Freq: Status: Active Protocol: Document 04/05/21 10:07 OF (Rec: 04/05/21 10:18 OF [email or web address]) OP-PT Subjective Patient Comments Patient Comments Pt states ice has been helping , HEP at least daily Patient Reported Progress Improving OP-PT Pain Assessment Pain Assessment Grid Paper Pain Assessment Grid Completed No: no pain at rest, 4/10 with ABD Home Pain Medication Use Pain Medications Used No PT-OP-E Functional Tests Start: 03/24/21 08:11 Freq: Status: Active Protocol: Document 03/24/21 14:17 LRN (Rec: 03/24/21 15:55 LRN [id number]) Functional Tests Apley's Scratch Test Action 1- Left Inferior to scapular spine Action 1- Right Posterior scapula Action 2- Left C7 Action 2- Right T5 Action 3- Left L2 Action 3- Right T9 PT-OP-J Posture/Palpation/Skin Start: 03/24/21 08:11 Freq: Status: Active Protocol: Document 03/24/21 14:17 LRN (Rec: 03/24/21 15:55 LRN [id number]) Posture Evaluation Position Standing Shoulder Posture Neutral Comments Posture Comments Wide stance , arms IR, Elevated L shoulder, Increased kyph, dowager, flat between T3-T6 Palpation Assessment Location R shoulder Palpation Location Biceps anter shouldewr, ACJ, Subacromial, Palpation Findings Tenderness Palpation Details L Clavicle elevated Elevated separation at ACJ No tenderness in L Anterior scalenes, Pec, posterior scapula Tender L deltoid medial and referred medial from posterior deltoid. Tight L Neck ms. PT-OP-K Range of Motion Start: 03/24/21 08:11 Freq: Status: Active Protocol: Document 03/24/21 14:17 LRN (Rec: 03/24/21 15:55 LRN [id number]) Cervical Spine Range of Motion Cervical Spine Active Percentage Flexion 100 Extension 80 Rotation Left 75 Rotation Right 85 Lateral Flexion Left 60 Lateral Flexion Right 80 ROM Limitations Soft Tissue Tightness Shoulder Goniometric Range of Motion Shoulder Right Passive Shoulder ROM WFL Yes Testing Position Supine Comments PROM is WNL Left Passive Shoulder ROM WFL Yes Testing Position Supine Comments PROM is WNL without pain Right Active Shoulder ROM WFL Yes Testing Position Sitting Flexion 175 Extension 70 Abduction 180 External Rotation at 0 degrees Abduction 68 Internal Rotation Behind Back (text) T9 Left Active Shoulder ROM WFL No Testing Position Sitting Flexion 95 Extension 63 Abduction 65 External Rotation at 0 degrees Abduction 50 Internal Rotation Behind Back (text) L2 Elbow/Forearm Range of Motion Elbow/Forearm Right Active Elbow/Forearm ROM WFL Yes ROM Testing Position Sitting Left Active Elbow/Forearm ROM WFL Yes ROM Testing Position Sitting PT-OP-L Special Tests Start: 03/24/21 08:11 Freq: Status: Active Protocol: Document 03/24/21 14:17 LRN (Rec: 03/24/21 15:55 LRN [id number]) Special Tests Cervical Spine Special Tests Traction Test Results Negative Comments No change with pain Foraminal Compression Test Results negative Comments No change with pain Shoulder Special Tests Passive ER Rotator Cuff Test Results + Left Comments Pain at end range. Roberto Jack Impingement Test Results + Left Comments Pain Elevation Impingement Test Results + Left Comments Pain PT-OP-M Strength Start: 03/24/21 08:11 Freq: Status: Active Protocol: Document 03/24/21 14:17 LRN (Rec: 03/24/21 15:55 LRN [id number]) Shoulder Strength Shoulder Manual Muscle Testing Right Comments 5/5 generally Left Flexion 3- Fair- Extension 5 Normal Abduction (C5) 3- Fair- Adduction 5 Normal External Rotation 3- Fair- Internal Rotation 4+ Good+ Elbow/Forearm Strength Elbow and Forearm Manual Muscle Testing Right Comments 5/5 generally Left Comments 5/5 generally PT-OP-Q Treatments Start: 03/24/21 08:11 Freq: Status: Active Protocol: Document 04/05/21 10:07 OF (Rec: 04/05/21 10:18 OF [email or web address]) Therapeutic Exercises Supine Exercises L shoulder AA AB Supine Exercise Name Active Assisted shoulder AB Side left Reps/Minutes 10x Comments Extra time to determine painfree movement assist L shoulder AA Flex Supine Exercise Name Active Assisted 90-180 deg's flexion Side left Reps/Minutes 10x Standing Exercises pushup+ Standing Exercise Name standing at wall, pushup with emphasis for serratus ant with + movement Side bilateral Reps/Minutes 2x10 C/S rotation Standing Exercise Name Rot stretch Side bilateral Reps/Minutes 10 x 5 each UT stretch Standing Exercise Name UT stretch Side bilateral Reps/Minutes 10 hold x 6 each Comments Extra time for training for max positional stretch Scapular Pinches Standing Exercise Name 35 from wall: Scapular pinch Side bilateral Equipment Used Lev 1 Reps/Minutes 10x 3 Shoulder ER Standing Exercise Name 26.5 from wall: Butch Shoulder ER, elbows at sides Equipment Used Lev 1 Reps/Minutes 8x 3 Manual Therapy Treatment Soft Tissue Mobilization L Pec stretch Body Location Pec stretch Mobilization Type Myofascial Release,Sustained Pressure Intensity/Depth Moderate Body Position Supine Joint Mobilizations L GH Grade III Body Position Supine Reps/Duration 2x2min each Comments GH inf glide with ABD, post glide, distraction Self-Care/Home Management Treatment Education Patient Education Body Mechanics,Home Exercise Program,Pain Management, Posture Activities Self-Care/Home Management Activities Pt agreeable to avoid loaded ABD or flex as much as possible PT-OP-R Modalities Start: 03/24/21 08:11 Freq: Status: Active Protocol: Document 03/29/21 09:48 LRN (Rec: 03/29/21 10:52 LRN [id number]) Ultrasound Therapy Treatment L anterior shoulder Treatment Duration (minutes) 8 Patient Position Supine Coupling Medium Ultrasound Gel Applicator Size (cm2) 10 Mode Setting Continuous Intensity Setting (w/cm2) 1.0 PT-OP-T Assessment and Plan Start: 03/24/21 08:11 Freq: Status: Active Protocol: Document 04/05/21 10:07 OF (Rec: 04/05/21 10:18 OF [email or web address]) Physical Therapy Assessment Rehab Potential Rehabilitation Potential Good Evaluation Complexity Number of Personal Factors/Comorbidities 1-2 Number of Body Systems Impaired 1-2 Clinical Presentation at Evaluation Stable Impairments Impairments Pain,Soft Tissue Mobility, Strength Other Impairments pain with mobility Goals Four Impairment Decreased sleeping ability ( wakens by L shoulder pain during the night) Short Term Goal (STG) Pt will be independent in scapular stabilizing ex's and neck stretch ex's. (03/29/21: I/S pt in ex's, but HEP not yet issued) STG Duration 04/15/21 (03/29/21: Progressed) Residential Goal (LTG) Pt goal is to improve sleep with pt able to sleep through the night without L shoulder pain and ability to tolerate L sidelying intermittently during the night. LTG Duration 06/22/21 Three Impairment Decreased L shoulder strength Short Term Goal (STG) Less or no sharp L shoulder pain with bathing. 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 LTG Duration 06/22/21 Two Impairment Decreased L shoulder AROM Short Term Goal (STG) None or less L shoulder pain with buckling of seat belt. STG Duration 05/06/21 [employer] Goal (LTG) Less onset of sharp pain with dressing (putting shirt on or pulling up pants) LTG Duration 06/22/21 One Impairment HEP Residential Goal (LTG) Independent with a self care HEP for L shoulder/scapula/ posture. (03/29/21: Progressed with verbal I/S of HEP) LTG Duration 06/22/21 Progress Towards Goals Progress Towards Goals Progressing Toward Goals Assessment Summary Assessment Pt presents with improved L shoulder pain, he states HEP has improved symptoms, icing more frequently has improved symptoms. He is agreeable to progressing HEP, limiting pain causing activity as much as possible at work. He responded well to mobilizations prior to exercise Physical Therapy Plan Frequency and Duration Frequency of Treatment 2x/Week Plan of Care Start Date 03/24/21 Plan of Care End Date 06/22/21 Next Visit Focus/Plan Next Note Type Treatment Note Next Visit Plan re assess pushup+, mobilization response, continue to progress scapular stabilizers and improve GH rhythm
--- NOTE | 2021-04-12 13:59 | PT.OTN ---
Current Diagnoses Muscle weakness (generalized) (04/05/21) Other synovitis and tenosynovitis, unspecified shoulder (04/05/21) Abnormal posture (04/05/21) Physical Therapy Treatment Note PT-OP-A Visit Information Start: 03/24/21 08:11 Freq: Status: Active Protocol: Document 04/12/21 12:49 LRN (Rec: 04/12/21 13:52 LRN [id number]) Out-Patient Physical Therapy Visit Information Visit Information Visit Type Treatment Note Visit Start Time 12:49 Visit Stop Time 13:36 Total Visit Minutes 47 Visit Number 4 Evaluation Information Evaluation Date 03/24/21 Precautions Precautions Controlled HBP 2 Stents in heart 4-5 yrs ago. PT-OP-B Current Condition Start: 03/24/21 08:11 Freq: Status: Active Protocol: Document 03/24/21 14:17 LRN (Rec: 03/24/21 15:55 LRN [id number]) Current Condition History of Current Condition Onset Date 1 yr ago Current Complaints L shoulder pain History of Current Condition Pt was crab and sport fishing and found he was constantly turning the wheel of the boat and that is when he started to feel discomfort in the L shoulder. His L shoulder has progressively worsened and now is unable to sleep through the night with his L shoulder waking him up in middle of the night. His arm now sometimes hurts with just the weight of the arm hanging down at rest. Pt is R handed. Prior Treatments and Tests None Treatment Goals Patient/Caregiver Goals Pt ultimate goal is to return to prior level of function for painfree ability to crab fish . Other goals are to improve sleep with pt able to sleep on L side, Less onset of sharp pain with dressing (putting shirt on or pulling up pants), Less sharp pain bathing. Less sharp pain with driving or buckling seat belt. 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 PT-OP-C Subjective Start: 03/24/21 08:11 Freq: Status: Active Protocol: Document 04/12/21 12:49 LRN (Rec: 04/12/21 13:52 LRN [id number]) OP-PT Subjective Patient Comments Patient Comments Icing more. PT-OP-E Functional Tests Start: 03/24/21 08:11 Freq: Status: Active Protocol: Document 03/24/21 14:17 LRN (Rec: 03/24/21 15:55 LRN [id number]) Functional Tests Apley's Scratch Test Action 1- Left Inferior to scapular spine Action 1- Right Posterior scapula Action 2- Left C7 Action 2- Right T5 Action 3- Left L2 Action 3- Right T9 PT-OP-J Posture/Palpation/Skin Start: 03/24/21 08:11 Freq: Status: Active Protocol: Document 03/24/21 14:17 LRN (Rec: 03/24/21 15:55 LRN [id number]) Posture Evaluation Position Standing Shoulder Posture Neutral Comments Posture Comments Wide stance , arms IR, Elevated L shoulder, Increased kyph, dowager, flat between T3-T6 Palpation Assessment Location R shoulder Palpation Location Biceps anter shouldewr, ACJ, Subacromial, Palpation Findings Tenderness Palpation Details L Clavicle elevated Elevated separation at ACJ No tenderness in L Anterior scalenes, Pec, posterior scapula Tender L deltoid medial and referred medial from posterior deltoid. Tight L Neck ms. PT-OP-K Range of Motion Start: 03/24/21 08:11 Freq: Status: Active Protocol: Document 03/24/21 14:17 LRN (Rec: 03/24/21 15:55 LRN [id number]) Cervical Spine Range of Motion Cervical Spine Active Percentage Flexion 100 Extension 80 Rotation Left 75 Rotation Right 85 Lateral Flexion Left 60 Lateral Flexion Right 80 ROM Limitations Soft Tissue Tightness Shoulder Goniometric Range of Motion Shoulder Right Passive Shoulder ROM WFL Yes Testing Position Supine Comments PROM is WNL Left Passive Shoulder ROM WFL Yes Testing Position Supine Comments PROM is WNL without pain Right Active Shoulder ROM WFL Yes Testing Position Sitting Flexion 175 Extension 70 Abduction 180 External Rotation at 0 degrees Abduction 68 Internal Rotation Behind Back (text) T9 Left Active Shoulder ROM WFL No Testing Position Sitting Flexion 95 Extension 63 Abduction 65 External Rotation at 0 degrees Abduction 50 Internal Rotation Behind Back (text) L2 Elbow/Forearm Range of Motion Elbow/Forearm Right Active Elbow/Forearm ROM WFL Yes ROM Testing Position Sitting Left Active Elbow/Forearm ROM WFL Yes ROM Testing Position Sitting PT-OP-L Special Tests Start: 03/24/21 08:11 Freq: Status: Active Protocol: Document 03/24/21 14:17 LRN (Rec: 03/24/21 15:55 LRN [id number]) Special Tests Cervical Spine Special Tests Traction Test Results Negative Comments No change with pain Foraminal Compression Test Results negative Comments No change with pain Shoulder Special Tests Passive ER Rotator Cuff Test Results + Left Comments Pain at end range. Robetro Jack Impingement Test Results + Left Comments Pain Elevation Impingement Test Results + Left Comments Pain PT-OP-M Strength Start: 03/24/21 08:11 Freq: Status: Active Protocol: Document 03/24/21 14:17 LRN (Rec: 03/24/21 15:55 LRN [id number]) Shoulder Strength Shoulder Manual Muscle Testing Right Comments 5/5 generally Left Flexion 3- Fair- Extension 5 Normal Abduction (C5) 3- Fair- Adduction 5 Normal External Rotation 3- Fair- Internal Rotation 4+ Good+ Elbow/Forearm Strength Elbow and Forearm Manual Muscle Testing Right Comments 5/5 generally Left Comments 5/5 generally PT-OP-Q Treatments Start: 03/24/21 08:11 Freq: Status: Active Protocol: Document 04/12/21 12:49 LRN (Rec: 04/12/21 13:52 LRN [id number]) Therapeutic Exercises Supine Exercises Shoulder ER Supine Exercise Name Active Assisted ER with elbow in 45 deg's AB Side left Reps/Minutes 10x L shoulder AA Flex Supine Exercise Name Active Assisted flex 90-180 deg's flexion Side left Equipment Used cane Reps/Minutes 10x AA punch to ceiling Supine Exercise Name Elbow flexed punching to ceiling Side left Equipment Used cane Reps/Minutes 10x Scapular pinches Supine Exercise Name Scapular pinches after Pec stretch Side bilateral Reps/Minutes 3' Standing Exercises pushup+ Standing Exercise Name standing at wall, pushup with emphasis for serratus ant with + movement Side bilateral Reps/Minutes 2x10 C/S rotation Standing Exercise Name Rot stretch Side bilateral Reps/Minutes 10 x 5 each UT stretch Standing Exercise Name UT stretch Side bilateral Reps/Minutes 10 hold x 6 each Scapular Pinches Standing Exercise Name 35 from wall: Scapular pinch Side bilateral Equipment Used Lev 2 Reps/Minutes 10x 3 Shoulder IR Standing Exercise Name 35 from wall: shoulder IR Side left Equipment Used Lev 2 Reps/Minutes 15 Shoulder ER Standing Exercise Name 24 from wall: Butch Shoulder ER, elbows at sides Equipment Used Lev 2 Reps/Minutes 15 Self-Care/Home Management Treatment Education Patient Education Pain Management Activities Self-Care/Home Management Activities Issued & reviewed handout for RICE treatment for proper use of ice for pain. PT-OP-R Modalities Start: 03/24/21 08:11 Freq: Status: Active Protocol: Document 04/12/21 12:49 LRN (Rec: 04/12/21 13:52 LRN [id number]) Ultrasound Therapy Treatment L anterior shoulder Treatment Duration (minutes) 8 Patient Position Supine Coupling Medium Ultrasound Gel Applicator Size (cm2) 10 Mode Setting Continuous Intensity Setting (w/cm2) 1.0 PT-OP-T Assessment and Plan Start: 03/24/21 08:11 Freq: Status: Active Protocol: Document 04/12/21 12:49 LRN (Rec: 04/12/21 13:52 LRN [id number]) Physical Therapy Assessment Goals Four Impairment Decreased sleeping ability ( wakens by L shoulder pain during the night) Short Term Goal (STG) Pt will be independent in scapular stabilizing ex's and neck stretch ex's. (03/29/21: I/S pt in ex's, but HEP not yet issued) STG Duration 04/15/21 (03/29/21: Progressed) Penitentiary Goal (LTG) Pt goal is to improve sleep with pt able to sleep through the night without L shoulder pain and ability to tolerate L sidelying intermittently during the night. (04/12/21: Pain if gets arm in wrong position of arm overhead , otherwise sleeping better. LTG Duration 06/22/21 (04/12/21: Progressing) Three Impairment Decreased L shoulder strength Short Term Goal (STG) Less or no sharp L shoulder pain with bathing. STG Duration 05/06/21 Penitentiary Goal (LTG) Prior level of function w/o L shoulder pain (Less or no sharp pain with driving and confident in ability to go crab fishing) and ability to return to working on his boat in prep for crabbing season. LTG Duration 06/22/21 Two Impairment Decreased L shoulder AROM Short Term Goal (STG) None or less L shoulder pain with buckling of seat belt. STG Duration 05/06/21 Penitentiary Goal (LTG) Less onset of sharp pain with dressing (putting shirt on or pulling up pants) LTG Duration 06/22/21 One Impairment HEP Penitentiary Goal (LTG) Independent with a self care HEP for L shoulder/scapula/ posture. (03/29/21: Progressed with verbal I/S of HEP) LTG Duration 06/22/21 Progress Towards Goals Progress Towards Goals Progressing Toward Goals Assessment Summary Assessment Pt appears to have had a + response to US with dec in pain complaints after the trearment. Pt having L anter shldr pain in range ~25 to 35 degs flex, possible ? labral tear? Physical Therapy Plan Frequency and Duration Frequency of Treatment 2x/Week Plan of Care Start Date 03/24/21 Plan of Care End Date 06/22/21 Next Visit Focus/Plan Next Note Type Treatment Note Next Visit Plan Continue to progress scapular stabilizers and improve GH rhythm. Check for possible ? labral tear?. Cont POC of primary PT: issue HEP ex's: active & AA shoulder ER/IR, and scap pinches, ARROM (ER/IR/Row) & neck stretches (SB, rot). Continue rehab program for proper scapular positioning; L Scapular stabilization; progressive L RC strengthening without increasing inflammation, end with modalities of US to L anterior shoulder and/or ACJ region or laser treatment. Possible use of K-tape to facilitate L RC and proper L Scapulohumeral rhythm. Pt to end with cryotherapy at clinic or home.
--- NOTE | 2021-04-18 15:27 | PT.OTN ---
Current Diagnoses Muscle weakness (generalized) (04/18/21) Other synovitis and tenosynovitis, unspecified shoulder (04/18/21) Abnormal posture (04/18/21) Physical Therapy Treatment Note PT-OP-A Visit Information Start: 03/24/21 08:11 Freq: Status: Active Protocol: Document 04/18/21 14:15 AMB (Rec: 04/18/21 15:27 AMB [email or web address]) Out-Patient Physical Therapy Visit Information Visit Information Visit Type Treatment Note Visit Start Time 14:15 Visit Stop Time 15:00 Total Visit Minutes 45 Visit Number 5 Precautions Precautions Controlled HBP 2 Stents in heart 4-5 yrs ago. 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 His L shoulder has progressively worsened and now is unable to sleep through the night with his L shoulder waking him up in middle of the night. His arm now sometimes hurts with just the weight of the arm hanging down at rest. Pt is R handed. Prior Treatments and Tests None Treatment Goals Patient/Caregiver Goals Pt ultimate goal is to return to prior level of function for painfree ability to crab fish . Other goals are to improve sleep with pt able to sleep on L side, Less onset of sharp pain with dressing (putting shirt on or pulling up pants), Less sharp pain bathing. Less sharp pain with driving or buckling seat belt. 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 PT-OP-C Subjective Start: 03/24/21 08:11 Freq: Status: Active Protocol: Document 04/18/21 14:15 AMB (Rec: 04/18/21 15:27 AMB [email or web address]) OP-PT Subjective Patient Comments Patient Comments Pt reports he has been icing more. Has been spending time with grandkids. PT-OP-E Functional Tests Start: 03/24/21 08:11 Freq: Status: Active Protocol: Document 03/24/21 14:17 LRN (Rec: 03/24/21 15:55 LRN [id number]) Functional Tests Apley's Scratch Test Action 1- Left Inferior to scapular spine Action 1- Right Posterior scapula Action 2- Left C7 Action 2- Right T5 Action 3- Left L2 Action 3- Right T9 PT-OP-J Posture/Palpation/Skin Start: 03/24/21 08:11 Freq: Status: Active Protocol: Document 03/24/21 14:17 LRN (Rec: 03/24/21 15:55 LRN [id number]) Posture Evaluation Position Standing Shoulder Posture Neutral Comments Posture Comments Wide stance , arms IR, Elevated L shoulder, Increased kyph, dowager, flat between T3-T6 Palpation Assessment Location R shoulder Palpation Location Biceps anter shouldewr, ACJ, Subacromial, Palpation Findings Tenderness Palpation Details L Clavicle elevated Elevated separation at ACJ No tenderness in L Anterior scalenes, Pec, posterior scapula Tender L deltoid medial and referred medial from posterior deltoid. Tight L Neck ms. PT-OP-K Range of Motion Start: 03/24/21 08:11 Freq: Status: Active Protocol: Document 03/24/21 14:17 LRN (Rec: 03/24/21 15:55 LRN [id number]) Cervical Spine Range of Motion Cervical Spine Active Percentage Flexion 100 Extension 80 Rotation Left 75 Rotation Right 85 Lateral Flexion Left 60 Lateral Flexion Right 80 ROM Limitations Soft Tissue Tightness Shoulder Goniometric Range of Motion Shoulder Right Passive Shoulder ROM WFL Yes Testing Position Supine Comments PROM is WNL Left Passive Shoulder ROM WFL Yes Testing Position Supine Comments PROM is WNL without pain Right Active Shoulder ROM WFL Yes Testing Position Sitting Flexion 175 Extension 70 Abduction 180 External Rotation at 0 degrees Abduction 68 Internal Rotation Behind Back (text) T9 Left Active Shoulder ROM WFL No Testing Position Sitting Flexion 95 Extension 63 Abduction 65 External Rotation at 0 degrees Abduction 50 Internal Rotation Behind Back (text) L2 Elbow/Forearm Range of Motion Elbow/Forearm Right Active Elbow/Forearm ROM WFL Yes ROM Testing Position Sitting Left Active Elbow/Forearm ROM WFL Yes ROM Testing Position Sitting PT-OP-L Special Tests Start: 03/24/21 08:11 Freq: Status: Active Protocol: Document 03/24/21 14:17 LRN (Rec: 03/24/21 15:55 LRN [id number]) Special Tests Cervical Spine Special Tests Traction Test Results Negative Comments No change with pain Foraminal Compression Test Results negative Comments No change with pain Shoulder Special Tests Passive ER Rotator Cuff Test Results + Left Comments Pain at end range. Roberto Jack Impingement Test Results + Left Comments Pain Elevation Impingement Test Results + Left Comments Pain PT-OP-M Strength Start: 03/24/21 08:11 Freq: Status: Active Protocol: Document 03/24/21 14:17 LRN (Rec: 03/24/21 15:55 LRN [id number]) Shoulder Strength Shoulder Manual Muscle Testing Right Comments 5/5 generally Left Flexion 3- Fair- Extension 5 Normal Abduction (C5) 3- Fair- Adduction 5 Normal External Rotation 3- Fair- Internal Rotation 4+ Good+ Elbow/Forearm Strength Elbow and Forearm Manual Muscle Testing Right Comments 5/5 generally Left Comments 5/5 generally PT-OP-Q Treatments Start: 03/24/21 08:11 Freq: Status: Active Protocol: Document 04/18/21 14:15 AMB (Rec: 04/18/21 15:27 AMB [email or web address]) Therapeutic Exercises Supine Exercises alternating isometrics Supine Exercise Name At 90 flexion Reps/Minutes 2x20 Comments horiz abd, add, and extension Shoulder ER Supine Exercise Name Active Assisted ER with elbow in 45 deg's AB Side left Reps/Minutes 10x L shoulder AA Flex Supine Exercise Name Active Assisted flex 90-180 deg's flexion Side left Equipment Used cane Reps/Minutes 10x AA punch to ceiling Supine Exercise Name Elbow flexed punching to ceiling Side left Equipment Used cane Reps/Minutes 10x Scapular pinches Supine Exercise Name Scapular pinches after Pec stretch Side bilateral Reps/Minutes 3' Standing Exercises UT stretch Standing Exercise Name UT stretch Side bilateral Reps/Minutes 10 hold x 6 each Manual Therapy Treatment Joint Mobilizations L GH Grade III Body Position Supine Reps/Duration 2x2min each Comments GH inf glide with ABD, post glide, distraction Taping 1 Body Location L shoulder Type of Tape kinesiotape Comments Y for GH stabilization, I for scapular retraction PT-OP-R Modalities Start: 03/24/21 08:11 Freq: Status: Active Protocol: Document 04/18/21 14:15 AMB (Rec: 04/18/21 15:27 AMB [email or web address]) Ultrasound Therapy Treatment L anterior shoulder Treatment Duration (minutes) 8 Patient Position Supine Coupling Medium Ultrasound Gel Applicator Size (cm2) 10 Mode Setting Continuous Intensity Setting (w/cm2) 1.0 PT-OP-T Assessment and Plan Start: 03/24/21 08:11 Freq: Status: Active Protocol: Document 04/18/21 14:15 AMB (Rec: 04/18/21 15:27 AMB [email or web address]) Physical Therapy Assessment Goals Four Impairment Decreased sleeping ability ( wakens by L shoulder pain during the night) Short Term Goal (STG) Pt will be independent in scapular stabilizing ex's and neck stretch ex's. (03/29/21: I/S pt in ex's, but HEP not yet issued) STG Duration 04/15/21 (03/29/21: Progressed) Mechanical Planner Goal (LTG) Pt goal is to improve sleep with pt able to sleep through the night without L shoulder pain and ability to tolerate L sidelying intermittently during the night. (04/12/21: Pain if gets arm in wrong position of arm overhead , otherwise sleeping better. LTG Duration 06/22/21 (04/12/21: Progressing) Three Impairment Decreased L shoulder strength Short Term Goal (STG) Less or no sharp L shoulder pain with bathing. 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 LTG Duration 06/22/21 Two Impairment Decreased L shoulder AROM Short Term Goal (STG) None or less L shoulder pain with buckling of seat belt. STG Duration 05/06/21 Mechanical Planner Goal (LTG) Less onset of sharp pain with dressing (putting shirt on or pulling up pants) LTG Duration 06/22/21 One Impairment HEP Mechanical Planner Goal (LTG) Independent with a self care HEP for L shoulder/scapula/ posture. (03/29/21: Progressed with verbal I/S of HEP) LTG Duration 06/22/21 Assessment Summary Assessment Pt has good understanding of not pushing through pain with HEP. Did give #3 t band. Physical Therapy Plan Next Visit Focus/Plan Next Note Type Treatment Note Next Visit Plan Continue to progress scapular stabilizers and improve GH rhythm. issue HEP ex's: active & AA shoulder ER/IR, and scap pinches, ARROM (ER/IR/Row) & neck stretches (SB, rot). Continue rehab program for proper scapular positioning; L Scapular stabilization; progressive L RC strengthening without increasing inflammation, end with modalities of US to L anterior shoulder and/or ACJ region or laser treatment. Possible use of K-tape to facilitate L RC and proper L Scapulohumeral rhythm. Pt to end with cryotherapy at clinic or home.
--- NOTE | 2021-04-28 15:31 | PT.OTN ---
Current Diagnoses Muscle weakness (generalized) (04/28/21) Other synovitis and tenosynovitis, unspecified shoulder (04/28/21) Abnormal posture (04/28/21) Physical Therapy Treatment Note PT-OP-A Visit Information Start: 03/24/21 08:11 Freq: Status: Active Protocol: Document 04/28/21 14:15 AMB (Rec: 04/28/21 15:31 AMB [email or web address]) Out-Patient Physical Therapy Visit Information Visit Information Visit Type Treatment Note Visit Start Time 14:15 Visit Stop Time 15:00 Total Visit Minutes 45 Visit Number 6 PT-OP-B Current Condition Start: 03/24/21 08:11 Freq: Status: Active Protocol: Document 03/24/21 14:17 LRN (Rec: 03/24/21 15:55 LRN [id number]) Current Condition History of Current Condition Onset Date 1 yr ago Current Complaints L shoulder pain History of Current Condition Pt was crab and sport fishing and found he was constantly turning the wheel of the boat and that is when he started to feel discomfort in the L shoulder. His L shoulder has progressively worsened and now is unable to sleep through the night with his L shoulder waking him up in middle of the night. His arm now sometimes hurts with just the weight of the arm hanging down at rest. Pt is R handed. Prior Treatments and Tests None Treatment Goals Patient/Caregiver Goals Pt ultimate goal is to return to prior level of function for painfree ability to crab fish . Other goals are to improve sleep with pt able to sleep on L side, Less onset of sharp pain with dressing (putting shirt on or pulling up pants), Less sharp pain bathing. Less sharp pain with driving or buckling seat belt. 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 PT-OP-C Subjective Start: 03/24/21 08:11 Freq: Status: Active Protocol: Document 04/28/21 14:15 AMB (Rec: 04/28/21 15:31 AMB [email or web address]) OP-PT Subjective Patient Comments Patient Comments Pt's had to have open heart surgery, so he has been sitting and icing more. PT-OP-E Functional Tests Start: 03/24/21 08:11 Freq: Status: Active Protocol: Document 03/24/21 14:17 LRN (Rec: 03/24/21 15:55 LRN [id number]) Functional Tests Apley's Scratch Test Action 1- Left Inferior to scapular spine Action 1- Right Posterior scapula Action 2- Left C7 Action 2- Right T5 Action 3- Left L2 Action 3- Right T9 PT-OP-J Posture/Palpation/Skin Start: 03/24/21 08:11 Freq: Status: Active Protocol: Document 03/24/21 14:17 LRN (Rec: 03/24/21 15:55 LRN [id number]) Posture Evaluation Position Standing Shoulder Posture Neutral Comments Posture Comments Wide stance , arms IR, Elevated L shoulder, Increased kyph, dowager, flat between T3-T6 Palpation Assessment Location R shoulder Palpation Location Biceps anter shouldewr, ACJ, Subacromial, Palpation Findings Tenderness Palpation Details L Clavicle elevated Elevated separation at ACJ No tenderness in L Anterior scalenes, Pec, posterior scapula Tender L deltoid medial and referred medial from posterior deltoid. Tight L Neck ms. PT-OP-K Range of Motion Start: 03/24/21 08:11 Freq: Status: Active Protocol: Document 03/24/21 14:17 LRN (Rec: 03/24/21 15:55 LRN [id number]) Cervical Spine Range of Motion Cervical Spine Active Percentage Flexion 100 Extension 80 Rotation Left 75 Rotation Right 85 Lateral Flexion Left 60 Lateral Flexion Right 80 ROM Limitations Soft Tissue Tightness Shoulder Goniometric Range of Motion Shoulder Right Passive Shoulder ROM WFL Yes Testing Position Supine Comments PROM is WNL Left Passive Shoulder ROM WFL Yes Testing Position Supine Comments PROM is WNL without pain Right Active Shoulder ROM WFL Yes Testing Position Sitting Flexion 175 Extension 70 Abduction 180 External Rotation at 0 degrees Abduction 68 Internal Rotation Behind Back (text) T9 Left Active Shoulder ROM WFL No Testing Position Sitting Flexion 95 Extension 63 Abduction 65 External Rotation at 0 degrees Abduction 50 Internal Rotation Behind Back (text) L2 Elbow/Forearm Range of Motion Elbow/Forearm Right Active Elbow/Forearm ROM WFL Yes ROM Testing Position Sitting Left Active Elbow/Forearm ROM WFL Yes ROM Testing Position Sitting PT-OP-L Special Tests Start: 03/24/21 08:11 Freq: Status: Active Protocol: Document 03/24/21 14:17 LRN (Rec: 03/24/21 15:55 LRN [id number]) Special Tests Cervical Spine Special Tests Traction Test Results Negative Comments No change with pain Foraminal Compression Test Results negative Comments No change with pain Shoulder Special Tests Passive ER Rotator Cuff Test Results + Left Comments Pain at end range. Roberto Jack Impingement Test Results + Left Comments Pain Elevation Impingement Test Results + Left Comments Pain PT-OP-M Strength Start: 03/24/21 08:11 Freq: Status: Active Protocol: Document 03/24/21 14:17 LRN (Rec: 03/24/21 15:55 LRN [id number]) Shoulder Strength Shoulder Manual Muscle Testing Right Comments 5/5 generally Left Flexion 3- Fair- Extension 5 Normal Abduction (C5) 3- Fair- Adduction 5 Normal External Rotation 3- Fair- Internal Rotation 4+ Good+ Elbow/Forearm Strength Elbow and Forearm Manual Muscle Testing Right Comments 5/5 generally Left Comments 5/5 generally PT-OP-Q Treatments Start: 03/24/21 08:11 Freq: Status: Active Protocol: Document 04/28/21 14:15 AMB (Rec: 04/28/21 15:31 AMB [email or web address]) Therapeutic Exercises Supine Exercises alternating isometrics Supine Exercise Name At 90 flexion Reps/Minutes 2x20 Comments horiz abd, add, and extension AA punch to ceiling Supine Exercise Name Elbow flexed punching to ceiling Side left Equipment Used cane Reps/Minutes 10x Standing Exercises UT stretch Standing Exercise Name UT stretch Side bilateral Reps/Minutes 10 hold x 6 each Manual Therapy Treatment Soft Tissue Mobilization Deltoid insertion Mobilization Type Myofascial Release,Strumming Intensity/Depth Moderate Joint Mobilizations L GH Grade III Body Position Supine Reps/Duration 2x2min each Comments GH inf glide with ABD, post glide, distraction Taping 1 Body Location L shoulder Type of Tape kinesiotape Comments Y for GH stabilization, I for scapular retraction PT-OP-R Modalities Start: 03/24/21 08:11 Freq: Status: Active Protocol: Document 04/28/21 14:15 AMB (Rec: 04/28/21 15:31 AMB [email or web address]) Ultrasound Therapy Treatment L anterior shoulder Treatment Duration (minutes) 8 Patient Position Supine Coupling Medium Ultrasound Gel Applicator Size (cm2) 10 Mode Setting Continuous Intensity Setting (w/cm2) 1.0 PT-OP-T Assessment and Plan Start: 03/24/21 08:11 Freq: Status: Active Protocol: Document 04/28/21 14:15 AMB (Rec: 04/28/21 15:31 AMB [email or web address]) Physical Therapy Assessment Goals Four Impairment Decreased sleeping ability ( wakens by L shoulder pain during the night) Short Term Goal (STG) Pt will be independent in scapular stabilizing ex's and neck stretch ex's. (03/29/21: I/S pt in ex's, but HEP not yet issued) STG Duration 04/15/21 (03/29/21: Progressed) Longterm Goal (LTG) Pt goal is to improve sleep with pt able to sleep through the night without L shoulder pain and ability to tolerate L sidelying intermittently during the night. (04/12/21: Pain if gets arm in wrong position of arm overhead , otherwise sleeping better. LTG Duration 06/22/21 (04/12/21: Progressing) Three Impairment Decreased L shoulder strength Short Term Goal (STG) Less or no sharp L shoulder pain with bathing. 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 LTG Duration 06/22/21 Two Impairment Decreased L shoulder AROM Short Term Goal (STG) None or less L shoulder pain with buckling of seat belt. STG Duration 05/06/21 Longterm Goal (LTG) Less onset of sharp pain with dressing (putting shirt on or pulling up pants) LTG Duration 06/22/21 One Impairment HEP Longterm Goal (LTG) Independent with a self care HEP for L shoulder/scapula/ posture. (03/29/21: Progressed with verbal I/S of HEP) LTG Duration 06/22/21 Assessment Summary Assessment Pt felt like k tape was somewhat helpful. Sleeping is better. He is better about avoiding painful motions ( abduction). 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 Physical Therapy Plan Next Visit Focus/Plan Next Note Type Treatment Note Next Visit Plan Continue to progress scapular stabilizers and improve GH rhythm. issue HEP ex's: active & AA shoulder ER/IR, and scap pinches, ARROM (ER/IR/Row) & neck stretches (SB, rot). Continue rehab program for proper scapular positioning; L Scapular stabilization; progressive L RC strengthening without increasing inflammation, end with modalities of US to L anterior shoulder and/or ACJ region or laser treatment. Possible use of K-tape to facilitate L RC and proper L Scapulohumeral rhythm. Pt to end with cryotherapy at clinic or home.
--- NOTE | 2021-05-02 14:55 | PT.OTN ---
Current Diagnoses Muscle weakness (generalized) (05/02/21) Other synovitis and tenosynovitis, unspecified shoulder (05/02/21) Abnormal posture (05/02/21) Physical Therapy Treatment Note PT-OP-A Visit Information Start: 03/24/21 08:11 Freq: Status: Active Protocol: Document 05/02/21 13:34 LRN (Rec: 05/02/21 14:49 LRN [id number]) Out-Patient Physical Therapy Visit Information Visit Information Visit Type Progress Note Visit Start Time 13:34 Visit Stop Time 14:16 Total Visit Minutes 42 Visit Number 7 Evaluation Information Evaluation Date 03/24/21 Precautions Precautions Controlled HBP 2 Stents in heart 4-5 yrs ago. PT-OP-B Current Condition Start: 03/24/21 08:11 Freq: Status: Active Protocol: Document 03/24/21 14:17 LRN (Rec: 03/24/21 15:55 LRN [id number]) Current Condition History of Current Condition Onset Date 1 yr ago Current Complaints L shoulder pain History of Current Condition Pt was crab and sport fishing and found he was constantly turning the wheel of the boat and that is when he started to feel discomfort in the L shoulder. His L shoulder has progressively worsened and now is unable to sleep through the night with his L shoulder waking him up in middle of the night. His arm now sometimes hurts with just the weight of the arm hanging down at rest. Pt is R handed. Prior Treatments and Tests None Treatment Goals Patient/Caregiver Goals Pt ultimate goal is to return to prior level of function for painfree ability to crab fish . Other goals are to improve sleep with pt able to sleep on L side, Less onset of sharp pain with dressing (putting shirt on or pulling up pants), Less sharp pain bathing. Less sharp pain with driving or buckling seat belt. 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 PT-OP-C Subjective Start: 03/24/21 08:11 Freq: Status: Active Protocol: Document 05/02/21 13:34 LRN (Rec: 05/02/21 14:49 LRN [id number]) OP-PT Subjective Patient Comments Patient Comments Massaging and US helped a lot and helped for the day and the next. States it is better than it was, having 1/3 less pain. Jul 08, 2021 plans on returning to fishing. Doesn't wake him at night but is very conccious of how he is laying . PT-OP-E Functional Tests Start: 03/24/21 08:11 Freq: Status: Active Protocol: Document 03/24/21 14:17 LRN (Rec: 03/24/21 15:55 LRN [id number]) Functional Tests Apley's Scratch Test Action 1- Left Inferior to scapular spine Action 1- Right Posterior scapula Action 2- Left C7 Action 2- Right T5 Action 3- Left L2 Action 3- Right T9 PT-OP-J Posture/Palpation/Skin Start: 03/24/21 08:11 Freq: Status: Active Protocol: Document 03/24/21 14:17 LRN (Rec: 03/24/21 15:55 LRN [id number]) Posture Evaluation Position Standing Shoulder Posture Neutral Comments Posture Comments Wide stance , arms IR, Elevated L shoulder, Increased kyph, dowager, flat between T3-T6 Palpation Assessment Location R shoulder Palpation Location Biceps anter shouldewr, ACJ, Subacromial, Palpation Findings Tenderness Palpation Details L Clavicle elevated Elevated separation at ACJ No tenderness in L Anterior scalenes, Pec, posterior scapula Tender L deltoid medial and referred medial from posterior deltoid. Tight L Neck ms. PT-OP-K Range of Motion Start: 03/24/21 08:11 Freq: Status: Active Protocol: Document 03/24/21 14:17 LRN (Rec: 03/24/21 15:55 LRN [id number]) Cervical Spine Range of Motion Cervical Spine Active Percentage Flexion 100 Extension 80 Rotation Left 75 Rotation Right 85 Lateral Flexion Left 60 Lateral Flexion Right 80 ROM Limitations Soft Tissue Tightness Shoulder Goniometric Range of Motion Shoulder Right Passive Shoulder ROM WFL Yes Testing Position Supine Comments PROM is WNL Left Passive Shoulder ROM WFL Yes Testing Position Supine Comments PROM is WNL without pain Right Active Shoulder ROM WFL Yes Testing Position Sitting Flexion 175 Extension 70 Abduction 180 External Rotation at 0 degrees Abduction 68 Internal Rotation Behind Back (text) T9 Left Active Shoulder ROM WFL No Testing Position Sitting Flexion 95 Extension 63 Abduction 65 External Rotation at 0 degrees Abduction 50 Internal Rotation Behind Back (text) L2 Elbow/Forearm Range of Motion Elbow/Forearm Right Active Elbow/Forearm ROM WFL Yes ROM Testing Position Sitting Left Active Elbow/Forearm ROM WFL Yes ROM Testing Position Sitting PT-OP-L Special Tests Start: 03/24/21 08:11 Freq: Status: Active Protocol: Document 03/24/21 14:17 LRN (Rec: 03/24/21 15:55 LRN [id number]) Special Tests Cervical Spine Special Tests Traction Test Results Negative Comments No change with pain Foraminal Compression Test Results negative Comments No change with pain Shoulder Special Tests Passive ER Rotator Cuff Test Results + Left Comments Pain at end range. Roberto Jack Impingement Test Results + Left Comments Pain Elevation Impingement Test Results + Left Comments Pain PT-OP-M Strength Start: 03/24/21 08:11 Freq: Status: Active Protocol: Document 03/24/21 14:17 LRN (Rec: 03/24/21 15:55 LRN [id number]) Shoulder Strength Shoulder Manual Muscle Testing Right Comments 5/5 generally Left Flexion 3- Fair- Extension 5 Normal Abduction (C5) 3- Fair- Adduction 5 Normal External Rotation 3- Fair- Internal Rotation 4+ Good+ Elbow/Forearm Strength Elbow and Forearm Manual Muscle Testing Right Comments 5/5 generally Left Comments 5/5 generally PT-OP-Q Treatments Start: 03/24/21 08:11 Freq: Status: Active Protocol: Document 05/02/21 13:34 LRN (Rec: 05/02/21 14:49 LRN [id number]) Cardio Equipment Upper Body Ergometer (UBE) Duration (Minutes) 3 RPM 70 Height 2.5 Other fwd/bkwd, pain L shldr ~90 deg 's flex @ subacromion. Therapeutic Exercises Supine Exercises Shoulder ER Supine Exercise Name Active Assisted ER with elbow in 45 deg's AB Side left Equipment Used 0, 1, 2# Reps/Minutes 30x Comments Pt ROM decreased with increased weight. L shoulder AA AB Supine Exercise Name Isometric AB at 30 deg's and 90 deg's AB Side left Reps/Minutes 2' L arm circles Supine Exercise Name Assisted > independent max motion arm circles Side left Reps/Minutes 10x CW & CCW Comments Pt I/S to move slow & cautious for max painfree movement Sidelying Exercises Shoulder AB Sidelying Exercise Name Shoulder AB strengthening: Elbow lift to ceiling (90 deg elbow flex) Side left Reps/Minutes 15x Comments Extra time to determine best positioning & slow mvmt Shoulder IR Sidelying Exercise Name Shoulder IR strengthening Equipment Used 1#6 Reps/Minutes 15x Comments Extra time to determine best positioning and max wgt & slow mvmt Shoulder ER Sidelying Exercise Name Shoulder ER strengthening Side left Equipment Used 1# Reps/Minutes 15x Comments Extra time to determine best positioning and max wgt & slow mvmt Sitting Exercises Shoulder Flex Sitting Exercise Name Hand slide fwd on table Side left Reps/Minutes 3' Standing Exercises Codman's Standing Exercise Name After UBE Side left Manual Therapy Treatment Soft Tissue Mobilization Upper shoulder Body Location Supraspinatus Mobilization Type Strumming Intensity/Depth Moderate Body Position Supine Deltoid insertion Body Location Deltoid, Deltoid insertion Mobilization Type Myofascial Release,Strumming Intensity/Depth Moderate Body Position Supine L Pec stretch Body Location L pec Mobilization Type Strumming Intensity/Depth Moderate Body Position Supine PT-OP-R Modalities Start: 03/24/21 08:11 Freq: Status: Active Protocol: Document 04/28/21 14:15 AMB (Rec: 04/28/21 15:31 AMB [id number]) Ultrasound Therapy Treatment L anterior shoulder Treatment Duration (minutes) 8 Patient Position Supine Coupling Medium Ultrasound Gel Applicator Size (cm2) 10 Mode Setting Continuous Intensity Setting (w/cm2) 1.0 PT-OP-T Assessment and Plan Start: 03/24/21 08:11 Freq: Status: Active Protocol: Document 05/02/21 13:34 LRN (Rec: 05/02/21 14:49 LRN [id number]) Physical Therapy Assessment Rehab Potential Rehabilitation Potential Good Evaluation Complexity Number of Personal Factors/Comorbidities 1-2 Number of Body Systems Impaired 1-2 Clinical Presentation at Evaluation Stable Impairments Impairments Pain,Soft Tissue Mobility, Strength Other Impairments pain with mobility Goals Four Impairment Decreased sleeping ability ( wakens by L shoulder pain during the night) Short Term Goal (STG) Pt will be independent in scapular stabilizing ex's and neck stretch ex's. (03/29/21: I/S pt in ex's, but HEP not yet issued) STG Duration 04/15/21 (03/29/21: Progressed) [employer] Goal (LTG) Pt goal is to improve sleep with pt able to sleep through the night without L shoulder pain and ability to tolerate L sidelying intermittently during the night. (04/12/21: Pain if gets arm in wrong position of arm overhead , otherwise sleeping better. LTG Duration 06/22/21 (05/02/21: MET GOAL) Three Impairment Decreased L shoulder strength Short Term Goal (STG) Less or no sharp L shoulder pain with bathing. 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 LTG Duration 06/22/21 (05/02/21: No change ) Two Impairment Decreased L shoulder AROM Short Term Goal (STG) None or less L shoulder pain with buckling of seat belt. STG Duration 05/06/21 (05/02/21: No change) Jail Goal (LTG) Less onset of sharp pain with dressing (putting shirt on or pulling up pants) LTG Duration 06/22/21 (05/02/21: No change ) One Impairment HEP Super[employer] Goal (LTG) Independent with a self care HEP for L shoulder/scapula/ posture. (03/29/21: Progressed with verbal I/S of HEP) LTG Duration 06/22/21 (05/02/21: Verbal progression) Progress Towards Goals Progress Comments LTG #4 MET. Pt is able to sleep through the night after becoming more aware of proper positioning during the night. Assessment Summary Assessment Pt appears to be making very slow progress. He still has pain with active movement of the L arm but passively is painfree. He didn't really notice any change in symptoms with use of K-tape, but admittedly said he wasn't paying that close of attention . Pain L shoulder with active use of shoulder muscles, but no pain with PROM of L shoulder. No significant change in that aspect; therefore further imaging would be beneficial to determine dysfunction of the L shoulder. His pain location is consitently in the subacromial region of the attachement site of the Supraspinatus or the Infraspinatus. He also appears to have increased soft tissue mass above the Deltoid insertion on the humerus. Physical Therapy Plan Frequency and Duration Frequency of Treatment 2x/Week Plan of Care Start Date 03/24/21 Plan of Care End Date 06/22/21 Therapeutic Interventions Therapeutic Interventions Home Exercise Program,Joint Mobilizations,Manual Therapy, Patient/Caregiver Education, Self-Care/Home Management,Soft Tissue Mobilization,Taping, Therapeutic Activities, Therapeutic Exercises Modalities Cold Pack/Ice Massage,Electric Stimulation,Hot Packs, Ultrasound Other Referrals/Consults Referrals/Consults Recommended Recommend pt be seen for imaging of the L shoulder due to slow progress and continued pain with active use of L shoulder (no pain with PROM). Next Visit Focus/Plan Next Note Type Treatment Note Next Visit Plan Pt to contact referring physician for follow up care and possible MRI imaging. Place pt on HEP of scapular staabilizing & neck stretches, & RC strengthening ex's. Progress scapular stabilizers and improve GH rhythm. Issue HEP ex's: Sidelie resisted shoulder ER/IR (1#) & active short lever AB & ext; and sitting fwd hand slides. Add scap pinches, & neck stretches (SB, rot). Pt would like to continue rehab program L shoulder rehab. Improve L shoulder scapular positioning & stabilization; progressive L RC strengthening without increasing inflammation, end with modalities of US to L anterior shoulder and/or ACJ region or laser treatment. Might try again K-tape to facilitate L RC and proper L Scapulohumeral rhythm. Pt to end with cryotherapy at clinic or home.
--- NOTE | 2021-05-05 14:48 | PT-OP ANOTE ---
Per phone conv, pt dns for appt due to no one to watch his spouse who had open heart surgery. He would like to cancel next appt (waiting to hear from referring physician regarding imaging of his shoulder) and will keep the appt after that.
--- NOTE | 2021-05-12 14:38 | PT-OP ANOTE ---
Pt DNS, per phone conversation the pt states his passed this morning and requested hold on therapy, but agreeable to discharging from therapy. Pt will return to therapy if X-ray and MRI shows no need for surgery. Pt is being discharged from therapy today.
--- NOTE | 2021-05-12 14:54 | PT.OPDS ---
Current Diagnoses Muscle weakness (generalized) (05/02/21) Other synovitis and tenosynovitis, unspecified shoulder (05/02/21) Abnormal posture (05/02/21) Visit Care Team Role Provider Type Amanda Diop MD Attending Provider Physician Primary Care Provider Referring Provider Specialty: Family Practice Address: [address] [place] [address], [facility] [place], [address] Email: [email or web address] Visit Number Visit Number 7 Discharge Summary PT-OP-B Current Condition Start: 03/24/21 08:11 Freq: Status: Active Protocol: Document 03/24/21 14:17 LRN (Rec: 03/24/21 15:55 LRN [id number]) Current Condition History of Current Condition Onset Date 1 yr ago Current Complaints L shoulder pain History of Current Condition Pt was crab and sport fishing and found he was constantly turning the wheel of the boat and that is when he started to feel discomfort in the L shoulder. His L shoulder has progressively worsened and now is unable to sleep through the night with his L shoulder waking him up in middle of the night. His arm now sometimes hurts with just the weight of the arm hanging down at rest. Pt is R handed. Prior Treatments and Tests None Treatment Goals Patient/Caregiver Goals Pt ultimate goal is to return to prior level of function for painfree ability to crab fish . Other goals are to improve sleep with pt able to sleep on L side, Less onset of sharp pain with dressing (putting shirt on or pulling up pants), Less sharp pain bathing. Less sharp pain with driving or buckling seat belt. 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 PT-OP-C Subjective Start: 03/24/21 08:11 Freq: Status: Active Protocol: Document 05/12/21 14:45 LRN (Rec: 05/12/21 14:54 LRN [id number]) OP-PT Subjective Patient Comments Patient Comments Per phone, pt DNS due to passing this morning. Pt wanted to put PT on hold, but agreeable to DC due to circumstance, and him wanting to wait until after X-ray and MRI taken for orthopedic consult. Pt states if his condition doesn't require surgery, then he will seek to continue PT. PT-OP-E Functional Tests Start: 03/24/21 08:11 Freq: Status: Active Protocol: Document 03/24/21 14:17 LRN (Rec: 03/24/21 15:55 LRN [id number]) Functional Tests Apley's Scratch Test Action 1- Left Inferior to scapular spine Action 1- Right Posterior scapula Action 2- Left C7 Action 2- Right T5 Action 3- Left L2 Action 3- Right T9 PT-OP-J Posture/Palpation/Skin Start: 03/24/21 08:11 Freq: Status: Active Protocol: Document 03/24/21 14:17 LRN (Rec: 03/24/21 15:55 LRN [id number]) Posture Evaluation Position Standing Shoulder Posture Neutral Comments Posture Comments Wide stance , arms IR, Elevated L shoulder, Increased kyph, dowager, flat between T3-T6 Palpation Assessment Location R shoulder Palpation Location Biceps anter shouldewr, ACJ, Subacromial, Palpation Findings Tenderness Palpation Details L Clavicle elevated Elevated separation at ACJ No tenderness in L Anterior scalenes, Pec, posterior scapula Tender L deltoid medial and referred medial from posterior deltoid. Tight L Neck ms. PT-OP-K Range of Motion Start: 03/24/21 08:11 Freq: Status: Active Protocol: Document 03/24/21 14:17 LRN (Rec: 03/24/21 15:55 LRN [id number]) Cervical Spine Range of Motion Cervical Spine Active Percentage Flexion 100 Extension 80 Rotation Left 75 Rotation Right 85 Lateral Flexion Left 60 Lateral Flexion Right 80 ROM Limitations Soft Tissue Tightness Shoulder Goniometric Range of Motion Shoulder Right Passive Shoulder ROM WFL Yes Testing Position Supine Comments PROM is WNL Left Passive Shoulder ROM WFL Yes Testing Position Supine Comments PROM is WNL without pain Right Active Shoulder ROM WFL Yes Testing Position Sitting Flexion 175 Extension 70 Abduction 180 External Rotation at 0 degrees Abduction 68 Internal Rotation Behind Back (text) T9 Left Active Shoulder ROM WFL No Testing Position Sitting Flexion 95 Extension 63 Abduction 65 External Rotation at 0 degrees Abduction 50 Internal Rotation Behind Back (text) L2 Elbow/Forearm Range of Motion Elbow/Forearm Right Active Elbow/Forearm ROM WFL Yes ROM Testing Position Sitting Left Active Elbow/Forearm ROM WFL Yes ROM Testing Position Sitting PT-OP-L Special Tests Start: 03/24/21 08:11 Freq: Status: Active Protocol: Document 03/24/21 14:17 LRN (Rec: 03/24/21 15:55 LRN [id number]) Special Tests Cervical Spine Special Tests Traction Test Results Negative Comments No change with pain Foraminal Compression Test Results negative Comments No change with pain Shoulder Special Tests Passive ER Rotator Cuff Test Results + Left Comments Pain at end range. Roberto Jack Impingement Test Results + Left Comments Pain Elevation Impingement Test Results + Left Comments Pain PT-OP-M Strength Start: 03/24/21 08:11 Freq: Status: Active Protocol: Document 03/24/21 14:17 LRN (Rec: 03/24/21 15:55 LRN [id number]) Shoulder Strength Shoulder Manual Muscle Testing Right Comments 5/5 generally Left Flexion 3- Fair- Extension 5 Normal Abduction (C5) 3- Fair- Adduction 5 Normal External Rotation 3- Fair- Internal Rotation 4+ Good+ Elbow/Forearm Strength Elbow and Forearm Manual Muscle Testing Right Comments 5/5 generally Left Comments 5/5 generally PT-OP-T Assessment and Plan Start: 03/24/21 08:11 Freq: Status: Active Protocol: Document 05/12/21 14:45 LRN (Rec: 05/12/21 14:54 LRN [id number]) Physical Therapy Assessment Goals Four Impairment Decreased sleeping ability ( wakens by L shoulder pain during the night) Short Term Goal (STG) Pt will be independent in scapular stabilizing ex's and neck stretch ex's. (03/29/21: I/S pt in ex's, but HEP not yet issued) STG Duration 04/15/21 (05/12/21: Early DC, NOT MET GOAL) Senior Care Goal (LTG) Pt goal is to improve sleep with pt able to sleep through the night without L shoulder pain and ability to tolerate L sidelying intermittently during the night. (04/12/21: Pain if gets arm in wrong position of arm overhead , otherwise sleeping better. LTG Duration 06/22/21 (05/02/21: MET GOAL) Three Impairment Decreased L shoulder strength Short Term Goal (STG) Less or no sharp L shoulder pain with bathing. 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 LTG Duration 06/22/21 (05/02/21: No change ) Two Impairment Decreased L shoulder AROM Short Term Goal (STG) None or less L shoulder pain with buckling of seat belt. STG Duration 05/06/21 (05/02/21: No change) Auto Service Station Attendant Goal (LTG) Less onset of sharp pain with dressing (putting shirt on or pulling up pants) LTG Duration 06/22/21 (05/02/21: No change ) One Impairment HEP Senior Care Goal (LTG) Independent with a self care HEP for L shoulder/scapula/ posture. (03/29/21: Progressed with verbal I/S of HEP) LTG Duration 06/22/21 (05/12/21: Early DC, NOT MET GOAL) Assessment Summary Assessment Pt was last seen for 6 PT treatments with the last one on 05/02/21. The pt did not appear to make progress as expected. He was waiting to have an X-ray, MRI and orthopedic consult of his L shoulder, but now is dealing with the loss of his spouse today. The pt is not sure if or when he would return to PT; therefore it was decided that he would be discharged from therapy and will seek new referral after his imaging and orthopedic consult if further therapy is needed. Pt goals were not met. Physical Therapy Plan Discharge Physical Therapy Discharge Reasons No Longer Attending PT Discharge Comments See assessment above. Thank you for your referral.
== END 2021-05-16 09:46 | disposition home or self-care (01) ==
LOC: PHYS 13:30
PROVIDERS: PCP Student in an Organized Health Care Education/Training Program; Referring Provider Student in an Organized Health Care Education/Training Program; Visit Provider Student in an Organized Health Care Education/Training Program
DX: M65.819 Other synovitis and tenosynovitis, unspecified shoulder (principal); M62.81 Muscle weakness (generalized); R29.3 Abnormal posture
CPT/HCPCS: 97035; 97110; 97140; 97162; 97535

== ENCOUNTER 2021-05-05 18:16 | Emergency (ER) | payer OTHER, SELFPAY ==
[2021-05-05 18:19] VITALS: BP 170/108; PULSE 105; RESP 20; TEMP 37.1; O2SAT 98; BMI 26.6
[2021-05-05 18:32] LABS: Bacteria Urine None Seen
[2021-05-05 18:55] LABS: Appearance Urine UA CLOUDY; Bilirubin Urine UA 1+ (NEGATIVE); Color Urine UA RED; Glucose Urine UA TRACE g/dL (Negative); Ketones Urine UA TRACE (NEGATIVE); Leukocyte Esterase Urine UA TRACE (NEGATIVE); Nitrite Urine UA NEGATIVE (Negative); Occult Blood Urine UA 3+ (Negative); Protein Urine UA 3+ (Negative); pH Urine UA 6.5 (4.5-8.0)
[2021-05-05 18:59] LABS: Ictotest Urine Negative (Negative)
[2021-05-05 19:00] LABS: Culture Indicated Urine Specimen Cultured; RBC Urine >100/HPF (0-5/HPF); WBC Urine 5-10/HPF (0-5/HPF)
--- NOTE | 2021-05-05 22:50 | ED.MALEGU ---
HPI - Male Genitourinary General Chief complaint: Urogenital-Male Stated complaint: peeing blood s/p procedure today Time Seen by Provider: 05/05/21 20:39 Source: patient Mode of arrival: Ambulatory Limitations: no limitations History of Present Illness HPI Narrative: 65-year-old gentleman with history of hypertension, hyperlipidemia, BPH status post TUR with chronic interstitial cystitis for which he received intravesicular DMSO earlier today. He has had multiple treatments within the past and has tolerated them well. He noted well the Mendoza was being placed earlier today that he had some tenderness about the area of his prostatectomy. The installation of the DMSO was irritating which is not usual for him. He notes the urine sample was given prior to the treatment and there was no evidence of urinary tract infection at that time. Typically he is able to hold the fluid for approximately 30 minutes and was able to only retain it for approximately 5 minutes due to irritation and bladder spasm today. He notes that within minutes of voiding he began having antonieta hematuria without clots. He has continued to have significant bladder spasm and hematuria with frequent urination. Bladder scan in the emergency department reveals minimal postvoid residual. He describes no fevers, abdominal pain, vomiting, diarrhea, chest pain, palpitations or dyspnea. Related Data Home Medications Medication Instructions Recorded Confirmed aspirin 81 mg tablet,delayed 81 mg PO QDAY #30 tab 06/02/16 05/05/21 release hydralazine 25 mg tablet 25 mg PO TID #0 06/02/16 05/05/21 atorvastatin 40 mg tablet 40 mg PO DAILY 03/24/19 05/05/21 nitroglycerin 0.4 mg/hr 1 patch TRANSDERMAL DAILY 03/24/19 03/24/19 transdermal 24 hour patch ramipril 10 mg capsule 10 mg PO DAILY 03/24/19 05/05/21 ranolazine 500 mg tablet,extended 500 mg PO BID 03/24/19 03/24/19 release,12 hr spironolactone 25 mg tablet 25 mg PO DAILY 03/24/19 05/05/21 carvedilol 12.5 mg tablet 25 mg PO BID tab 05/05/21 05/05/21 diltiazem HCl 180 mg capsule,24 240 mg PO DAILY cap 05/05/21 05/05/21 hr,extended release Allergies Allergy/AdvReac Type Severity Reaction Status Date / Time No Known Drug Allergies Allergy Verified 05/05/21 18:19 Review of Systems Review of Systems Narrative: Remainder of complete review of systems is otherwise unremarkable except for that included in the HPI. Patient History Medical History Atrial fibrillation Coronary artery disease GERD (gastroesophageal reflux disease) High blood pressure Interstitial cystitis Surgical History History of coronary artery stent placement History of transurethral resection of prostate Family History Mother Hyperlipidemia Hypertension Social History marital status: Smoking Status: Current every day smoker alcohol intake: never caffeine: Yes (coffee) Smoking Status: Current every day smoker Substance Use Type: does not use Exam Narrative Exam Narrative: General: Alert appropriate in no acute distress Respiratory: Able to speak in full sentences, no obvious respiratory distress Abdomen: Minimal tenderness. Skin: No obvious rashes, warm and dry Neurologic: Grossly intact no obvious asymmetries or abnormalities Psych: appropriate insight and affect, cooperative Bedside ultrasound reveals a small bladder with symmetrically thickened bladder wall no obvious clots and postvoid residual is less than 30 cc. Initial Vital Signs Initial Vital Signs: Vital Signs Temperature 98.7 F 05/05/21 18:19 Pulse Rate 105 H 05/05/21 18:19 Respiratory Rate 20 05/05/21 18:19 Blood Pressure 170/108 H 05/05/21 18:19 Pulse Oximetry 98 05/05/21 18:19 Course Orders Ordered: Discontinued Medications Ketorolac Tromethamine (Ketorolac 30 Mg/Ml Vial) 30 mg IM NOW ONE Stop: 05/05/21 23:00 Last Admin: 05/05/21 23:12 Dose: 30 mg Documented by: NITISH Levofloxacin (Levofloxacin 250 Mg Tablet) 750 mg PO NOW ONE Stop: 05/05/21 23:00 Last Admin: 05/05/21 23:13 Dose: 750 mg Documented by: NITISH Oxycodone/Acetaminophen (Oxycodone/Apap 5/325 Prepack) 1 bottle MISC SEEINSTR ONE Stop: 05/05/21 23:00 Last Admin: 05/05/21 23:12 Dose: 1 bottle Documented by: NITISH Vital Signs Vital signs: Vital Signs - 8 hr 05/05/21 18:19 Temperature 98.7 F Pulse Rate 105 H Respiratory Rate 20 Blood Pressure 170/108 H Pulse Oximetry 98 MDM - Male Genitourinary Lab Data Labs: Lab Results 05/05/21 Range/Units 18:25 Urine Color Red Urine Appearance Cloudy Urine pH 6.5 (4.5-8.0) Ur Specific [place] 1.020 (1.000-1.035) Urine Protein 3+ H (Negative) Urine Glucose (UA) Trace H (Negative) g/dL Urine Ketones Trace H (NEGATIVE) Urine Occult Blood 3+ H (Negative) Urine Nitrate Negative (Negative) Urine Bilirubin 1+ H (NEGATIVE) Ur Bilirubin Confirm Negative (Negative) Urine Urobilinogen 1.0 (0.2) E.U./dL Ur Leukocyte Esterase Trace H (NEGATIVE) Urine RBC >100/hpf H (0-5/HPF) Urine WBC 5-10/hpf H (0-5/HPF) Urine Bacteria None seen (None) Ur Culture Indicated? Specimen cultured [facility] Narrative Medical decision making narrative: 65-year-old gentleman with a history of TUR with with sounds like mildly traumatic Mendoza catheter placement today with vesicular instillation of DMSO. Immediate irritation hematuria. He is given pain medications which were helpful in the emergency department. He does not have acute urinary retention. There is no signs of sepsis. Because of the irritation he is given a single dose of 750 mg of levofloxacin here in the emergency department. He has a follow-up appointment with his urologist tomorrow for a cystoscopy. At this time he continues to have hematuria but no acute urinary obstruction has follow-up within the next 24 hours and is safe for home discharge Discharge Plan Departure Patient Disposition: Home Clinical Impression: Cystitis, interstitial Hematuria Qualifiers: Hematuria type: gross Qualified Code(s): R31.0 - Gross hematuria Instructions: DI for Hematuria Activity Restrictions/Additional Instructions: Thank you for coming in today I am sorry that you developed gross hematuria after your bladder installation earlier today. You are not having any acute urinary retention. Ultrasound done at bedside in the emergency department shows slightly thickened bladder wall but only 15 cc of urine as a post void residual. Your given a shot of Toradol to help with the pain and bladder spasm and a single dose of 750 mg of Levaquin orally. Your urine was sent for culture. I have given you a couple of tablets of Percocet to take 1 to get home safely to help with the pain. Please keep your appointment at 1:[address] Cassidy. If you find that you are unable to void at all, you do need to return to the emergency department I hope you feel better Prescriptions: No Action aspirin 81 MG tablet,delayed release (DR/EC) 81 mg PO QDAY Qty: 30 RF: 0 hydralazine 25 MG tablet 25 mg PO TID Qty: 0 RF: 0 atorvastatin 40 mg Tablet 40 mg PO DAILY RF: 0 spironolactone 25 mg Tablet 25 mg PO DAILY RF: 0 nitroglycerin 0.4 mg/hr Patch 24 Hour 1 patch TRANSDERMAL DAILY RF: 0 ramipril 10 mg Capsule 10 mg PO DAILY RF: 0 ranolazine 500 mg Tablet Extended Release 12 Hr 500 mg PO BID RF: 0 diltiazem HCl 180 mg capsule,extended release 24 hr 240 mg PO DAILY RF: 0 carvedilol 12.5 mg tablet 25 mg PO BID RF: 0 Referrals: Amanda Diop MD [Primary Care Provider] -
[2021-05-05] MEDS: OXYCODONE/APAP 5/325 PREPACK 1 BOTTLE MISC (23:12)
[2021-05-05] MEDS: KETOROLAC 30 MG/ML VIAL IM (23:12)
[2021-05-05] MEDS: levoFLOXacin 250 MG TABLET 750 MG PO (23:13)
[2021-05-05 23:40] VITALS: BP 142/92; PULSE 67; RESP 17; O2SAT 96
== END 2021-05-05 23:40 | disposition home or self-care (01) ==
PROVIDERS: Emergency Provider Emergency Medicine; PCP Student in an Organized Health Care Education/Training Program; Referring Provider Specialist
DX: N30.11 Interstitial cystitis (chronic) with hematuria (principal)
CPT/HCPCS: 51798; 81001; 87086; 96372; 99283; J1885

== ENCOUNTER 2021-05-09 15:31 | Day surgery (SDC) | payer OTHER, SELFPAY ==
[2021-05-09] VITALS (7 sets, daily range): BP systolic 110–137; BP diastolic 66–90; PULSE 65–77; RESP 9–16; TEMP 36.4–36.9; O2SAT 94–96; BMI 26.6
[2021-05-09 16:14] LABS: COVID19 -Nasal RAPID Negative (Negative)
[2021-05-09] MEDS: LACTATED RINGERS 1,000 ML 100 ML IV (17:10)
[2021-05-09] MEDS: BELLADONNA/OPIUM SUPPOSITORIES 1 EACH PR (17:11)
[2021-05-09] MEDS: AMPICILLIN/SULBACTAM 3 GM 3 GM in SODIUM CHLORIDE 0.9% 100 ML IV (17:18)
--- NOTE | 2021-05-09 17:41 | PM.PREOP ---
Pre-operative Note Interval Note History & Physical reviewed/Exam performed by Physician: Yes Changes to H&P: No
[2021-05-09] MEDS: GENTAMICIN 160 MG in SODIUM CHLORIDE 0.9% 100 ML 104 ML IV (18:00)
[2021-05-09] MEDS: ACETAMINOPHEN IV 1,000 MG/100 ML VIAL 400 MG IV (18:15)
--- NOTE | 2021-05-09 18:35 | P.OP_ITS ---
Operative Date/Time/Diagnoses Date of procedure: 05/09/21 Time of procedure: 18:35 Pre-op diagnosis: 1. Painful urination. 2. Gross hematuria. 3. Rule urethral stricture versus false passage. Post-op diagnosis: same Procedure & Clinicians Procedure: 1. Cystoscopy. 2. Difficult catheterization. Same procedure as scheduled: Yes Indications: 1. Painful urination. 2. Gross hematuria. Surgeon: Marnie Cassidy Click Yes if Unassisted: Yes Anesthesia Type: General Operative Notes Findings: 1. Penile urethra-no annular stricture or lesion. 2. Bulbar urethra-normal caliber without annular stricture or lesion through the majority of its length. In the very proximal aspect, just distal to the external sphincter there is a short segment false passage and elevated mucosal flap in association with what appears to of been a disrupted stricture. A 0.45 hybrid guidewire was successfully passed through the mucosal pathway. 3. Prostate-status post TUR-nonobstructing. 4. Bladder-1+ trabeculation. Mild mucosal erythema that is patchy. No evidence of stone. No evidence of tumor. Closure Type: not applicable Specimen(s): none sent Applied: catheter (20. [place] tip catheter) Estimated Blood Loss (mL): 0 Blood products transfused: none Procedure in detail: The patient was positioned supine was administered general anesthesia. He was then repositioned in semi lithotomy and the lower abdomen, genitalia, and groin were then prepped and draped in sterile fashion. The 22 Malaysian panendoscope was then introduced lower urinary tract with the findings as described above. A 0.45 hybrid guidewire was utilized and under direct visualization was passed through the true channel and coiled into the bladder proper. The panendoscope was then gently passed along this length and into the bladder proper the panendoscope was then backloaded off the hybrid guidewire. Now a 20 [place] tip catheter was passed over the hybrid guidewire and positioned with its tip in the bladder. The balloon was then inflated to 10 cc. The catheter was then placed to gravity drainage. The patient was then awakened, transferred to [facility], and transported to recovery in stable condition. Post-operative Condition: stable Disposition: PACU Plan for aftercare: Discharge home.
--- NOTE | 2021-05-09 18:38 | SUR.OPER ---
Lithotomy on padded OR bed, head on pillow, arms secured on padded arm boards at <90 degrees abduction. Legs secured in padded yellow fins stirrups.
--- NOTE | 2021-05-09 18:46 | SUR.PHASEI ---
Dr Cassidy here, talking with patient. Patient awake and oriented, drinking fluids. Denied pain/nausea
--- NOTE | 2021-05-09 18:57 | SUR.PHASEI ---
Continues to talk with Dr. Cassidy, denies pain/nausea. Hand off to Adele Recinos RN
[2021-05-09] MEDS: OXYCODONE/ACETAMINOPHEN 5/325 TABLET 1 TAB PO (19:23)
== END 2021-05-09 19:25 | disposition home or self-care (01) ==
PROVIDERS: PCP Student in an Organized Health Care Education/Training Program; Referring Provider Specialist; Visit Provider Specialist
PROC: 0TND8ZZ Release Urethra, Via Natural or Artificial Opening Endoscopic (ICD-10-PCS; CPT 52276; principal; 2021-05-09 19:25)
DX: R30.0 Dysuria (principal); R31.0 Gross hematuria; N30.10 Interstitial cystitis (chronic) without hematuria; I10 Essential (primary) hypertension; I25.10 Atherosclerotic heart disease of native coronary artery without angina pectoris; I48.91 Unspecified atrial fibrillation; F17.210 Nicotine dependence, cigarettes, uncomplicated; K21.9 Gastro-esophageal reflux disease without esophagitis; Z20.822 Contact with and (suspected) exposure to COVID-19
CPT/HCPCS: 52005; 81002; 82962; 87635; J0131; J0295; J1100; J2405; J2704; J3010

== ENCOUNTER → 2021-06-01 17:49 | Outpatient (CLI) | payer OTHER, SELFPAY ==
--- NOTE | 2021-06-01 17:51 | DI.MRI.S_ITS ---
PROCEDURE: MR SHOULDER LT WO CON INDICATIONS: Other synovitis and tenosynovitis, unspecified christianne TECHNIQUE: Noncontrast oblique coronal T2 fast spin echo with fat saturation, oblique sagittal T1 spin echo and T2 fast spin echo with fat saturation, axial T1 spin echo and T2 fast spin echo with fat saturation through the shoulder. COMPARISON: None. FINDINGS: Rotator cuff: Full thickness slit-like tear involving the footprint of the supraspinatus tendon bursal surface fraying is present. Infraspinatus tendinopathy. Teres minor tendon appears intact. Subscapularis tendon appears intact. No atrophy of the rotator cuff muscles however there is diffuse fatty infiltration involving the supraspinatus, infraspinatus and subscapularis. Bones and bursae: No bone marrow contusions or fractures. [id number] glenohumeral, and severe acromioclavicular joint degeneration. Acromion demonstrates conventional anatomy, without an os acromiale. Moderate subacromial-subdeltoid bursitis. Capsule and soft tissues: Labrum: Ill-defined appearance, mild hypertrophy of the posterosuperior labrum. There is adjacent segmental glenoid rim sclerosis and spurring . Age-appropriate fraying of the superior and anterior labrum. Glenohumeral ligaments: Inferior glenohumeral ligament appears intact. The superior glenohumeral ligament not well visualized. Biceps tendon: Long head of the biceps tendon intact. Rotator interval: Near complete obliteration of the subcoracoid fat signal intensity. Coracohumeral ligament: Intact. IMPRESSION: Full thickness slit-like tear of the rotator cuff as detailed above. Moderate subacromial-subdeltoid bursitis. Circumferential fraying of the labrum, with superimposed posterosuperior segmental changes suggestive of chronic posterosuperior tear/advanced degeneration. Dictated by: Liam Stephens M.D. on 06/02/2021 at 9:05 Approved by: Liam Stephens M.D. on 06/02/2021 at 9:12
== END ==
PROVIDERS: PCP Student in an Organized Health Care Education/Training Program; Referring Provider Student in an Organized Health Care Education/Training Program; Visit Provider Student in an Organized Health Care Education/Training Program
DX: M65.819 Other synovitis and tenosynovitis, unspecified shoulder (principal); M75.122 Complete rotator cuff tear or rupture of left shoulder, not specified as traumatic; M19.012 Primary osteoarthritis, left shoulder; M75.52 Bursitis of left shoulder
CPT/HCPCS: 73221

== ENCOUNTER → 2022-01-12 12:44 | Outpatient (CLI) | payer OTHER, SELFPAY ==
[2022-01-12 13:25] LABS: BUN Creatinine Ratio 19.5 (6-22); Blood Urea Nitrogen 17 mg/dL (9-20); Estimated Glomerular Filt Rate > 60.0 mL/min (>60)
== END ==
PROVIDERS: PCP Student in an Organized Health Care Education/Training Program; Referring Provider Student in an Organized Health Care Education/Training Program; Visit Provider Student in an Organized Health Care Education/Training Program
DX: R91.1 Solitary pulmonary nodule (principal); R10.12 Left upper quadrant pain
CPT/HCPCS: 36415; 82565; 84520

== ENCOUNTER → 2022-01-13 10:20 | Outpatient (CLI) | payer OTHER, SELFPAY ==
--- NOTE | 2022-01-13 10:43 | DI.CT.S_ITS ---
PROCEDURE: CT CHEST ABD PEL W CON INDICATIONS: Left upper quadrant abdominal pain TECHNIQUE: After the administration of oral and intravenous contrast, axial sections acquired from the supraclavicular neck to the pubic symphysis. Coronal and sagittal reformats were performed. For radiation dose reduction, the following was used: automated exposure control, adjustment of mA and/or kV according to patient size. COMPARISON:[facility], CT, THORAX WITH CONTRAST, 03/31/2013, 12:23. [facility], CT, CT ABDOMEN PELVIS WO/W CON, 03/28/2018, 10:40. FINDINGS: Image quality: Excellent. CHEST: Lower Neck: No enlarged lymph nodes. Thyroid: Within normal limits. Axillae: No enlarged lymph nodes. Chest Wall: Unremarkable. Lungs and Airways: Mild centrilobular emphysema. Mild nodular opacity in the medial right lung base with bronchial wall thickening is suspicious for mild aspiration or pneumonia. 3 mm subpleural nodule is seen in the posterior right upper lobe (130/2), stable when compared to the CT from 03/31/2013. 3 mm nodule is seen at the left lung base (294/2) that appears stable when compared to the CT from 03/28/2018 and 03/31/2013, and is considered benign. 6 x 4 mm subpleural nodule is seen in the right middle lobe (269/2), corresponding to the nodule on prior CT from 03/28/2018 and 03/31/2013 given differences due to differences in CT technique and slice thickness. Stable 4 mm nodule in the inferior right middle lobe (305/2), unchanged. Pleura: No pneumothorax or pleural effusions. Heart: Heart size is normal. No pericardial effusion. Coronary artery calcifications. Thoracic Vessels: The aorta and pulmonary arteries demonstrate normal size. Mediastinum and Carole: No enlarged lymph nodes. Esophagus: No wall thickening. No hiatal hernia. ABDOMEN: Liver: Unremarkable. Gallbladder: Unremarkable. Biliary ducts: Unremarkable. Pancreas: Unremarkable. Spleen: Unremarkable. Adrenal Glands: Unremarkable. Kidneys and Ureters: Bilateral renal cysts are again seen. No hydronephrosis. Stomach and Bowel: Multiple diverticula are seen in the colon without signs of acute diverticulitis. Peritoneum: No abnormal intraperitoneal fluid. No free air. Ventral Wall: No hernia. Abdominal Nodes: No retroperitoneal or mesenteric adenopathy by size criteria. Vessels: Aorta and inferior vena cava are normal in size. Moderate aortic atherosclerotic calcifications. PELVIS: Pelvic Organs: Unremarkable. Bladder: Unremarkable. Pelvic Nodes: No enlarged lymph nodes. Miscellaneous: No inguinal hernias are seen. Bones: Multilevel degenerative changes are seen in the spine. IMPRESSION: 1. No acute abnormality is seen in the abdomen or pelvis to account for the reported left upper quadrant pain. 2. Small nodular opacity in the medial right lung base with bronchial wall thickening is suspicious for mild aspiration or pneumonia. 3. Multiple small bilateral pulmonary nodules are stable when compared to prior exams from 2018 in 2013, and are considered benign. 4. Colonic diverticulosis without signs of acute diverticulitis. Dictated by: Chano Garcia M.D. on 01/13/2022 at 14:56 Approved by: Chano Garcia M.D. on 01/13/2022 at 15:15
== END ==
PROVIDERS: PCP Student in an Organized Health Care Education/Training Program; Referring Provider Student in an Organized Health Care Education/Training Program; Visit Provider Student in an Organized Health Care Education/Training Program
DX: R10.12 Left upper quadrant pain (principal); R91.8 Other nonspecific abnormal finding of lung field; K57.90 Diverticulosis of intestine, part unspecified, without perforation or abscess without bleeding; I25.10 Atherosclerotic heart disease of native coronary artery without angina pectoris; N28.1 Cyst of kidney, acquired
CPT/HCPCS: 71260; 74177

== ENCOUNTER 2022-02-01 17:54 | Emergency (ER) | payer OTHER, SELFPAY ==
[2022-02-01] VITALS (11 sets, daily range): BP systolic 111–144; BP diastolic 77–97; PULSE 70–155; RESP 12–30; TEMP 36.3; O2SAT 95–100
[2022-02-01] MEDS: dilTIAZem 5 MG/ML SDV 25 MG IV (18:04)
--- NOTE | 2022-02-01 18:10 | ED_ITS ---
HPI - Arrhythmia/Palpitations General Chief Complaint: Arrhythmia/Palpitations Stated Complaint: heart is racing, can't catch breath Time Seen by Provider: 02/01/22 17:59 History of Present Illness HPI narrative: Patient is a 66-year-old male with history of coronary artery disease, hype rtension presents today with sudden-onset palpitations. He said it started about 20-30 minutes ago. Heart rate is currently 150. He says he does a history of atrial fibrillation he is not on anticoagulation but does take aspirin and diltiazem. He apparently was at [facility] emergency department yesterday for chest pain. And he was released. He is currently appears uncomfortable and is having chest discomfort he denies any fever or chills. No shortness of breath. Related Data Home Medications Medication Instructions Recorded Confirmed aspirin 81 mg tablet,delayed 81 mg PO QDAY #30 tab 06/02/16 05/09/21 release hydralazine 25 mg tablet 25 mg PO TID #0 06/02/16 05/09/21 atorvastatin 40 mg tablet 40 mg PO DAILY 03/24/19 05/09/21 ramipril 10 mg capsule 10 mg PO DAILY 03/24/19 05/09/21 spironolactone 25 mg tablet 25 mg PO DAILY 03/24/19 05/09/21 carvedilol 12.5 mg tablet 25 mg PO BID tab 05/05/21 05/09/21 diltiazem HCl 180 mg capsule,24 240 mg PO DAILY cap 05/05/21 05/09/21 hr,extended release Previous Rx's Medication Instructions Recorded cefdinir 300 mg capsule 300 mg PO BID #30 cap 05/09/21 oxycodone 5 mg tablet 5 mg PO Q4H PRN #20 tab 05/09/21 belladonna alkaloids-opium 16.2 1 supp AR TID PRN #12 ea 05/18/21 mg-30 mg rectal suppository tolterodine 4 mg capsule,extended 4 mg PO DAILY #90 cap 06/21/21 release 24 hr (Detrol LA) Allergies Allergy/AdvReac Type Severity Reaction Status Date / Time No Known Drug Allergies Allergy Verified 05/09/21 16:41 Review of Systems Review of Systems Narrative: GENERAL: Denies chills, fatigue, malaise, fever, sweats, travel HEENT: Denies sinus pain, ear pain, sore throat, difficulty swallowing, neck pain RESPIRATORY: Denies dyspnea, cough, wheezing, hemoptysis, sputum. CARDIOVASCULAR: See HPI GASTROINTESTINAL: Denies nausea, vomiting, abdominal pain, diarrhea, constipation, melena. : Denies dysuria, frequency, incontinence, hematuria, urinary retention, flank pain. MUSCULOSKELETAL: Denies weakness, joint pain, or bony pain SKIN: No rash, no erythema, no pruritus NEUROLOGIC: Denies weakness, dizziness, headache, numbness, change in speech, confusion PSYCHIATRIC: No concerning psychosocial issues. 12 point review of systems is negative except for those stated above and HPI Patient History Medical History Atrial fibrillation Coronary artery disease GERD (gastroesophageal reflux disease) High blood pressure Interstitial cystitis Surgical History History of coronary artery stent placement History of transurethral resection of prostate Family History Mother Hyperlipidemia Hypertension Social History marital status: household members: spouse Smoking Status: Current every day smoker alcohol intake: former caffeine: Yes (coffee) Smoking Status: Current every day smoker Substance Use Type: does not use Exam Initial Vital Signs Initial Vital Signs: Vital Signs Pulse Rate 70 02/01/22 17:58 Pulse Oximetry 97 02/01/22 17:58 GENERAL: Alert 66-year-old male appears uncomfortable holding his chest in [no acute] distress. HEENT: Head atraumatic,EOMI, pupils reactive, face symmetric, [moist] mucous membranes CARDIOVASCULAR: Tachycardic regular no murmur RESPIRATORY: Breath sounds equal bilaterally, no wheezes rales or rhonchi. ABDOMEN: Soft, nontender. Normoactive bowel sounds all 4 quadrants. No guarding or rebound. EXTREMITIES: Normal range of motion, no clubbing or edema. Neurovascularly intact NEUROLOGICAL: Alert and oriented x4.Normal gait and speech. SKIN: Warm, dry, no laceration, no petechiae, no rashes or lesions. Course Orders Ordered: ED Orders 02/01/22 19:05 Comprehensive Metabolic Panel Stat Lipase Stat Magnesium Stat Troponin & CK Cardiac Panel Stat Discontinued Medications Sodium Chloride (Normal Saline 0.9%) 1,000 mls @ 1,000 mls/hr IV CONT MARCO A Last Infusion: 02/01/22 20:03 Dose: 0 mls/hr Documented by: Admin: 02/01/22 18:18 Dose: 1,000 mls/hr Documented by: MARTIN Vital Signs Vital signs: Vital Signs - 8 hr 02/01/22 19:30 02/01/22 20:14 02/01/22 20:22 Pulse Rate 84 80 79 Respiratory Rate 17 24 21 Blood Pressure 123/84 135/95 H 135/97 H Pulse Oximetry 96 95 96 MDM - Arrhythmia/Palpitations Lab Data Result diagrams: 02/01/22 18:04 02/01/22 19:05 Labs: Lab Results 02/01/22 02/01/22 Range/Units 18:04 19:05 WBC 8.3 (4.5-11.0) X10^3/uL RBC 5.17 (4.5-5.9) X10^6/uL Hgb 16.9 (13.5-17.5) g/dL Hct 48.1 (41-53) % MCV 93.0 (80-100) fL MCH 32.7 (26-34) PG MCHC 35.2 (30-36) % RDW 13.3 (11.6-14.8) % Plt Count 270 (150-400) X10^3/uL Neut % (Auto) 53.6 (50-75) % Lymph % (Auto) 33.3 (25-40) % Mcmullen % (Auto) 9.7 (3-14) % Eos % (Auto) 2.5 (2-4) % Baso % (Auto) 0.9 (0-2) % Neut # (Auto) 4400 (7333-3548) /uL Lymph # (Auto) 2800 (5137-9360) /uL Mcmullen # (Auto) 800 (0-900) /uL Eos # (Auto) 200 (0-450) /uL Baso # (Auto) 100 (0-100) /uL Sodium 140 (137-145) mmol/L Potassium 3.8 (3.4-5.1) mmol/L Chloride 108 H (98-107) mmol/L Carbon Dioxide 25 (22-32) mmol/L BUN 22 H (9-20) mg/dL Creatinine 0.90 (0.66-1.25) mg/dL Estimated GFR > 60 (>60) mL/min BUN/Creatinine Ratio 24.4 H (6-22) Glucose 113 H (80-110) mg/dL Calcium 8.9 (8.4-10.2) mg/dL Magnesium 2.0 (1.6-2.3) mg/dL Total Bilirubin 0.5 (0.2-1.3) mg/dL AST 23 (17-59) IU/L ALT 22 (<50) IU/L Alkaline Phosphatase 58 (38-126) U/L Total Creatine Kinase 78 (55-170) U/L CK-MB (CK-2) TNP CK-MB (CK-2) Rel Index TNP Troponin I < 0.012 (0.01-0.034) ng/mL Total Protein 6.7 (6.3-8.2) g/dL Albumin 4.0 (3.5-5.0) g/dL Globulin 2.7 (1.7-4.1) g/dL Albumin/Globulin Ratio 1.5 (1.0-2.8) Lipase 184 (23-300) U/L Imaging Data Chest x-ray: Radiologist's Impresson: Thierry Sanchez MR#: [id number] : 1955 Acct:[id number] Age/Sex: 66 / M Date of Service: 02/01/22 Loc: ED Accession Number: [id number] ?? Procedure: XR chest 1V Ordering Provider: Criselda Herman D.O. PROCEDURE:? XR CHEST 1V ? INDICATIONS:? chest pain ? TECHNIQUE:? One view of the chest was acquired.? ? COMPARISON:? [facility], , XR CHEST 1V, 03/24/2019, 18:57. ? FINDINGS:? ? Surgical changes and devices:? None.? ? Lungs and pleura:? Lungs are clear.? No pleural effusions or pneumothorax.? ? Mediastinum:? Mediastinal contours appear normal.? Heart size is normal.? ? Bones and chest wall:? No suspicious bony lesions.? Overlying soft tissues appear unremarkable.? ? IMPRESSION:? No evidence acute pulmonary process. ? ? ? Dictated by: Eliu Smith M.D. on 02/01/2022 at 18:51 ? ? ECG Data Interpretation: EKG 1. SVT vs atrial flutter 1:1 rate 146 no P-waves no ST changes EKG 2. Normal sinus rhythm rate 89 AR interval 196 QRS [address] changes MDM Narrative Medical decision making narrative: Patient's heart rate in the 150s not moving either in atrial fib with a one-to-one or SVT. Although it does look quite a lot like SVT he is given 10 mg of diltiazem and he cardioverted to sinus rhythm. He is overall feeling significantly better. Blood work is overall reassuring. No further intervention. I discussed with him at home interventions vasovagal maneuvers is to help. We actually did try blowing through syringe and lifting legs along with carotid massage but were unsuccessful. 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 He actually says that he has had 1 or 2 ablation past. Discharge Plan Departure Patient Disposition: Home Clinical Impression: SVT (supraventricular tachycardia) Instructions: DI for Paroxysmal Supraventricular Tachycardia Activity Restrictions/Additional Instructions: *You have been diagnosed with supraventricular tachycardia *What to do: I am glad that you are feeling better. Continue to take your blood pressure medication as previously prescribed. *Continue to take medications as directed *Follow up with your primary care provider in 2-3 days or call [phone] *Return to ER if you should have increasing chest pain palpitations dizziness lightheadedness or any new, worsening or concerning symptoms Prescriptions: No Action aspirin 81 MG tablet,delayed release (DR/EC) 81 mg PO QDAY Qty: 30 0RF hydralazine 25 MG tablet 25 mg PO TID Qty: 0 0RF belladonna alkaloids-opium 16.2-30 mg suppository 1 supp AR TID PRN (Reason: pain) Qty: 12 0RF tolterodine [Detrol LA] 4 mg capsule,extended release 24hr 4 mg PO DAILY Qty: 90 3RF atorvastatin 40 mg Tablet 40 mg PO DAILY 0RF spironolactone 25 mg Tablet 25 mg PO DAILY 0RF ramipril 10 mg Capsule 10 mg PO DAILY 0RF diltiazem HCl 180 mg capsule,extended release 24 hr 240 mg PO DAILY 0RF carvedilol 12.5 mg tablet 25 mg PO BID 0RF cefdinir 300 mg capsule 300 mg PO BID Qty: 30 0RF oxycodone 5 mg tablet 5 mg PO Q4H PRN (Reason: pain) Qty: 20 0RF Referrals: Amanda Diop MD [Primary Care Provider] -
--- NOTE | 2022-02-01 18:11 | DI.RAD.S_ITS ---
PROCEDURE: XR CHEST 1V INDICATIONS: chest pain TECHNIQUE: One view of the chest was acquired. COMPARISON: [facility], CR, XR CHEST 1V, 03/24/2019, 18:57. FINDINGS: Surgical changes and devices: None. Lungs and pleura: Lungs are clear. No pleural effusions or pneumothorax. Mediastinum: Mediastinal contours appear normal. Heart size is normal. Bones and chest wall: No suspicious bony lesions. Overlying soft tissues appear unremarkable. IMPRESSION: No evidence acute pulmonary process. Dictated by: Eliu Smith M.D. on 02/01/2022 at 18:51 Approved by: Eliu Smith M.D. on 02/01/2022 at 18:51
[2022-02-01] MEDS: SODIUM CHLORIDE 0.9% 1,000 ML 1000 ML IV (18:18)
[2022-02-01 18:46] LABS: Add Manual Diff / Slide Review NO; Basophils Absolute Auto 100 /uL (0-100); Basophils Percent Auto 0.9 % (0-2); Eosinophils Absolute Auto 200 /uL (0-450); Eosinophils Percent Auto 2.5 % (2-4); Hematocrit 48.1 % (41-53); Hemoglobin 16.9 g/dL (13.5-17.5); Lymphocytes Absolute Auto 2800 /uL (1100-4500); Lymphocytes Percent Auto 33.3 % (25-40); Mean Corpuscular HGB Conc 35.2 % (30-36); Mean Corpuscular Hemoglobin 32.7 PG (26-34); Monocytes Absolute Auto 800 /uL (0-900); Monocytes Percent Auto 9.7 % (3-14); Neutrophils Absolute Auto 4400 /uL (1500-7000); Neutrophils Percent Auto 53.6 % (50-75); Platelet Count 270 X10^3/uL (150-400); Red Blood Cell Count 5.17 X10^6/uL (4.5-5.9); Red Cell Distribution Width 13.3 % (11.6-14.8); White Blood Cell Count 8.3 X10^3/uL (4.5-11.0)
[2022-02-01 19:56] LABS: Alanine Aminotransferase 22 IU/L (<50); Albumin Globulin Ratio 1.5 (1.0-2.8); Alkaline Phosphatase 58 U/L (38-126); Aspartate Aminotransferase 23 IU/L (17-59); BUN Creatinine Ratio 24.4 (6-22); Bilirubin Total 0.5 mg/dL (0.2-1.3); Blood Urea Nitrogen 22 mg/dL (9-20); Calcium 8.9 mg/dL (8.4-10.2); Carbon Dioxide 25 mmol/L (22-32); Chloride 108 mmol/L (98-107); Creatine Kinase 78 U/L (55-170); Estimated Glomerular Filt Rate > 60 mL/min (>60); Globulin 2.7 g/dL (1.7-4.1); Glucose 113 mg/dL (80-110); HEMOLYSIS 21 (0-50); Lipase 184 U/L (23-300); Potassium 3.8 mmol/L (3.4-5.1); Sodium 140 mmol/L (137-145); Total Protein 6.7 g/dL (6.3-8.2)
[2022-02-01 20:08] LABS: Troponin I < 0.012 ng/mL (0.01-0.034)
== END 2022-02-01 20:25 | disposition home or self-care (01) ==
PROVIDERS: Emergency Provider Emergency Medicine; PCP Student in an Organized Health Care Education/Training Program
DX: I47.1 Supraventricular tachycardia (principal); R07.9 Chest pain, unspecified
CPT/HCPCS: 36415; 71045; 80053; 82550; 83690; 83735; 84484; 85025; 93005; 99284

== ENCOUNTER 2023-02-19 07:36 | Emergency (ER) | payer MEDICARE, OTHER, SELFPAY ==
[2023-02-19] VITALS (13 sets, daily range): BP systolic 132–162; BP diastolic 84–94; PULSE 60–73; RESP 11–19; TEMP 36.4; O2SAT 94–98; BMI 25.0
--- NOTE | 2023-02-19 07:38 | DI.RAD.S_ITS ---
PROCEDURE: XR CHEST 1V INDICATIONS: chest pain TECHNIQUE: One view of the chest was acquired. COMPARISON: [facility], CR, XR CHEST 1V, 02/01/2022, 18:15. [facility], CR, XR CHEST 1V, 03/24/2019, 18:57. FINDINGS: Surgical changes and devices: None. Lungs and pleura: Lungs are clear. No pleural effusions or pneumothorax. Mediastinum: Mediastinal contours appear normal. Heart size is normal. Bones and chest wall: No suspicious bony lesions. Overlying soft tissues appear unremarkable. IMPRESSION: No acute cardiopulmonary abnormality. Dictated by: Chano Martins M.D. on 02/19/2023 at 8:17 Approved by: Chano Martins M.D. on 02/19/2023 at 8:24
--- NOTE | 2023-02-19 07:55 | ED.CHESTPAIN ---
HPI - Chest Pain General Chief Complaint: Chest Pain Stated Complaint: ches pain/pressure/tired T-2 Time Seen by Provider: 02/19/23 07:37 Source: patient Mode of arrival: Ambulatory Limitations: no limitations History of Present Illness HPI narrative: Patient is a 67-year-old male with a history of coronary artery disease. Has had multiple stents in the past. Is currently in cardiac rehab. Has not had a heart attack. Is here for evaluation of left lower chest/left upper abdomen discomfort. And also sharp left-sided chest pain. He states the symptoms have been going off and on for the past several months although have been happening more frequently recently. He did recently have some cardiac workup with his sample distributor. I do not have these available for review. He states that he had a coronary CT scan. He was told that there was no ?progression? of the disease. He states that the discomfort that brought him in today is not associated with breathing or touching or eating. He does take a proton pump inhibitor. He also sees a GI doctor. Has had an upper endoscopy and a colonoscopy within the past 5 years. Related Data Home Medications Medication Instructions Recorded Confirmed aspirin 81 mg tablet,delayed 81 mg PO QDAY #30 tabs 06/02/16 05/09/21 release hydralazine 25 mg tablet 25 mg PO TID ##0 06/02/16 05/09/21 atorvastatin 40 mg tablet 40 mg PO DAILY 03/24/19 05/09/21 ramipril 10 mg capsule 10 mg PO DAILY 03/24/19 05/09/21 spironolactone 25 mg tablet 25 mg PO DAILY 03/24/19 05/09/21 carvedilol 12.5 mg tablet 25 mg PO BID 05/05/21 05/09/21 diltiazem HCl 180 mg capsule,24 240 mg PO DAILY 05/05/21 05/09/21 hr,extended release Previous Rx's Medication Instructions Recorded cefdinir 300 mg capsule 300 mg PO BID #30 caps 05/09/21 oxycodone 5 mg tablet 5 mg PO Q4H PRN pain #20 tabs 05/09/21 belladonna alkaloids-opium 16.2 1 supp [place] TID PRN pain #12 ea 05/18/21 mg-30 mg rectal suppository tolterodine 4 mg capsule,extended 4 mg PO DAILY #90 caps 06/21/21 release 24 hr (Detrol LA) Allergies Allergy/AdvReac Type Severity Reaction Status Date / Time No Known Drug Allergies Allergy Verified 05/09/21 16:41 Review of Systems Constitutional Constitutional: Reports system reviewed and no additional complaints, except as documented Cardiovascular Cardiovascular: Reports system reviewed and no additional complaints, except as documented Respiratory Respiratory: Reports system reviewed and no additional complaints, except as documented Gastrointestinal Gastrointestinal: Reports system reviewed and no additional complaints, except as documented Integumentary/Breasts Skin/Breast: Reports system reviewed and no additional complaints, except as documented Neurologic Neurologic: Reports system reviewed and no additional complaints, except as documented Hematologic/Lymphatic On Anticoagulants: No Patient History Medical History Atrial fibrillation Coronary artery disease GERD (gastroesophageal reflux disease) High blood pressure Interstitial cystitis Surgical History History of coronary artery stent placement History of transurethral resection of prostate Family History Mother Hyperlipidemia Hypertension Social History marital status: household members: spouse Smoking Status: Current every day smoker alcohol intake: former caffeine: Yes (coffee) Smoking Status: Current every day smoker Substance Use Type: does not use Exam Initial Vital Signs Initial Vital Signs: Vital Signs Pulse Rate 65 02/19/23 07:44 Respiratory Rate 19 02/19/23 07:44 Blood Pressure 162/94 H 02/19/23 07:44 Pulse Oximetry 97 02/19/23 07:44 Oxygen Delivery Method Room Air 02/19/23 07:44 Const General: cooperative, comfortable and No ill appearing HENMT Head: normal to inspection and normocephalic Resp Effort & Inspection: normal respiratory effort Auscultation: clear to auscultation bilaterally Cardio Rate: regular rate Rhythm: regular rhythm GI Inspection: normal to inspection and non-distended Palpation: soft, No firm and No tender Skin General: no rashes or lesions noted Neuro General: patient alert, patient awake and moves all extremities Speech: speech normal Extrem General: normal to inspection and capillary refill normal Course Orders Ordered: ED Orders 02/19/23 07:38 XR chest 1V Stat EKG-12 Lead Stat 02/19/23 07:55 Complete Blood Count AUTO DIFF Stat Comprehensive Metabolic Panel Stat Lipase Stat Magnesium Stat Troponin & CK Cardiac Panel Stat Vital Signs Vital signs: Vital Signs - 8 hr 02/19/23 07:44 02/19/23 07:49 Temperature 97.6 F Pulse Rate 65 Respiratory Rate 19 Blood Pressure 162/94 H Pulse Oximetry 97 Oxygen Delivery Method Room Air MDM - Chest Pain Medical Records Data Attestation: I reviewed the patient's medical records. Lab Data Attestation: I reviewed the patient's lab results. 02/19/23 07:55 02/19/23 07:55 Labs: Lab Results 02/19/23 02/19/23 02/19/23 Range/Units 07:55 07:55 07:55 WBC 4.7 (4.5-11.0) X10^3/uL RBC 4.58 (4.5-5.9) X10^6/uL Hgb 14.9 (13.5-17.5) g/dL Hct 42.1 (41-53) % MCV 91.9 (80-100) fL MCH 32.5 (26-34) PG MCHC 35.3 (30-36) % RDW 13.3 (11.6-14.8) % Plt Count 238 (150-400) X10^3/uL Neut % (Auto) 65.8 (50-75) % Lymph % (Auto) 22.1 L (25-40) % [place] % (Auto) 8.5 (3-14) % Eos % (Auto) 2.5 (2-4) % Baso % (Auto) 1.1 (0-2) % Neut # (Auto) 3100 (8471-2454) /uL Lymph # (Auto) 1000 L (3929-0078) /uL [place] # (Auto) 400 (0-900) /uL Eos # (Auto) 100 (0-450) /uL Baso # (Auto) 100 (0-100) /uL Sodium 137 (137-145) mmol/L Potassium 4.3 (3.4-5.1) mmol/L Chloride 102 (98-107) mmol/L Carbon Dioxide 28 (22-32) mmol/L BUN 13 (9-20) mg/dL Creatinine 0.80 (0.66-1.25) mg/dL Estimated GFR > 60 (>60) mL/min BUN/Creatinine Ratio 16.3 (6-22) Glucose 115 H (80-110) mg/dL Calcium 9.0 (8.4-10.2) mg/dL Magnesium 2.0 (1.6-2.3) mg/dL Total Bilirubin 0.9 (0.2-1.3) mg/dL AST 28 (17-59) IU/L ALT 34 (<50) IU/L Alkaline Phosphatase 58 (38-126) U/L Total Creatine Kinase 162 (55-170) U/L CK-MB (CK-2) 5.69 H (<2.37) ng/mL CK-MB (CK-2) Rel Index 3.5 (1.5-5.0) % Troponin I < 0.012 (0.01-0.034) ng/mL Total Protein 7.2 (6.3-8.2) g/dL Albumin 4.2 (3.5-5.0) g/dL Globulin 3.0 (1.7-4.1) g/dL Albumin/Globulin Ratio 1.4 (1.0-2.8) Lipase 111 (23-300) U/L Urine Dip Bedside Urine Glucose Negative Bedside Urine Bilirubin - Negative Bedside Urine Ketone - Negative Urine Specific [place] 1.005 Bedside Urine Occult Blood - Negative Bedside Urine pH 6.0 Bedside Urine Protein - Negative Bedside Urine Urobilinogen - Negative Bedside Urine Nitrite - Negative Bedside Urine Leukocytes - Negative Esterase Imaging Data Chest x-ray: Radiologist's Impression: PROCEDURE:? XR CHEST 1V ? INDICATIONS:? chest pain ? TECHNIQUE:? One view of the chest was acquired.? ? COMPARISON:? [facility], , XR CHEST 1V, 02/01/2022, 18:15.? [facility], , XR CHEST 1V, 03/24/2019, 18:57. ? FINDINGS:? ? Surgical changes and devices:? None.? ? Lungs and pleura:? Lungs are clear.? No pleural effusions or pneumothorax.? ? Mediastinum:? Mediastinal contours appear normal.? Heart size is normal.? ? Bones and chest wall:? No suspicious bony lesions.? Overlying soft tissues appear unremarkable.? ? IMPRESSION:? No acute cardiopulmonary abnormality ECG Data Attestation: I personally reviewed and interpreted this ECG as follows: Interpretation: Sinus rhythm Ventricular rate is 65 Left axis deviation Normal QRS Normal QTC No ST T wave MDM Narrative Medical decision making narrative: Patient has had symptoms off and on for weeks if not longer. He has been seen by Cardiology. He states he does not need to follow-up with GI. His troponins negative. EKG is unremarkable. Low suspicion for NSTEMI. He does describe pain in his left upper abdomen. He is on a proton pump inhibitor. Discussed the possibility that this is GI related. I did recommend that he contact his GI provider for follow-up. He also has a follow-up with his primary doctor in 1 week. We did discuss the lack of a definitive diagnosis today but I did provide reassurance. He expressed understanding and agreement. Discharge Plan Departure Patient Disposition: Home Clinical Impression: Atypical chest pain Instructions: DI for Atypical Chest Pain Activity Restrictions/Additional Instructions: I do recommend that you take all of your medications as directed. I recommend that you keep your follow-up appointment your primary doctor and also contact your sample distributor and also your GI doctor for a follow-up. Return to the emergency department for new or worsening symptoms. Prescriptions: No Action aspirin 81 MG tablet,delayed release (DR/EC) 81 mg PO QDAY Qty: 30 hydralazine 25 MG tablet 25 mg PO TID Qty: 0 belladonna alkaloids-opium 16.2-30 mg suppository 1 supp [place] TID PRN (Reason: pain) Qty: 12 0RF tolterodine [Detrol LA] 4 mg capsule,extended release 24hr 4 mg PO DAILY Qty: 90 3RF atorvastatin 40 mg Tablet 40 mg PO DAILY spironolactone 25 mg Tablet 25 mg PO DAILY ramipril 10 mg Capsule 10 mg PO DAILY diltiazem HCl 180 mg capsule,extended release 24 hr 240 mg PO DAILY carvedilol 12.5 mg tablet 25 mg PO BID cefdinir 300 mg capsule 300 mg PO BID Qty: 30 0RF oxycodone 5 mg tablet 5 mg PO Q4H PRN (Reason: pain) Qty: 20 0RF Referrals: Nadeem Hess MD [Primary Care Provider] - Stand Alone Forms: Patient Portal/API
[2023-02-19 08:06] LABS: Add Manual Diff / Slide Review NO; Basophils Absolute Auto 100 /uL (0-100); Basophils Percent Auto 1.1 % (0-2); Eosinophils Absolute Auto 100 /uL (0-450); Eosinophils Percent Auto 2.5 % (2-4); Hematocrit 42.1 % (41-53); Hemoglobin 14.9 g/dL (13.5-17.5); Lymphocytes Absolute Auto 1000 /uL (1100-4500); Lymphocytes Percent Auto 22.1 % (25-40); Mean Corpuscular HGB Conc 35.3 % (30-36); Mean Corpuscular Hemoglobin 32.5 PG (26-34); Mean Corpuscular Volume 91.9 fL (80-100); Monocytes Absolute Auto 400 /uL (0-900); Monocytes Percent Auto 8.5 % (3-14); Neutrophils Absolute Auto 3100 /uL (1500-7000); Neutrophils Percent Auto 65.8 % (50-75); Platelet Count 238 X10^3/uL (150-400); Red Blood Cell Count 4.58 X10^6/uL (4.5-5.9); Red Cell Distribution Width 13.3 % (11.6-14.8); White Blood Cell Count 4.7 X10^3/uL (4.5-11.0)
[2023-02-19 08:28] LABS: Alanine Aminotransferase 34 IU/L (<50); Albumin 4.2 g/dL (3.5-5.0); Albumin Globulin Ratio 1.4 (1.0-2.8); Alkaline Phosphatase 58 U/L (38-126); Aspartate Aminotransferase 28 IU/L (17-59); BUN Creatinine Ratio 16.3 (6-22); Bilirubin Total 0.9 mg/dL (0.2-1.3); Blood Urea Nitrogen 13 mg/dL (9-20); Carbon Dioxide 28 mmol/L (22-32); Chloride 102 mmol/L (98-107); Estimated Glomerular Filt Rate > 60 mL/min (>60); Glucose 115 mg/dL (80-110); HEMOLYSIS < 15 (0-50); Potassium 4.3 mmol/L (3.4-5.1); Sodium 137 mmol/L (137-145); Total Protein 7.2 g/dL (6.3-8.2)
[2023-02-19 08:55] LABS: Creatine Kinase 162 U/L (55-170); Lipase 111 U/L (23-300)
[2023-02-19 09:07] LABS: Troponin I < 0.012 ng/mL (0.01-0.034)
[2023-02-19 09:10] LABS: CKMB % Relative Index 3.5 % (1.5-5.0); Creatine Kinase MB 5.69 ng/mL (<2.37)
== END 2023-02-19 09:56 | disposition home or self-care (01) ==
PROVIDERS: Emergency Provider Emergency Medicine; PCP Family Medicine
DX: R07.89 Other chest pain (principal); R10.12 Left upper quadrant pain; Z95.5 Presence of coronary angioplasty implant and graft
CPT/HCPCS: 36415; 71045; 80053; 81003; 82550; 82553; 83690; 83735; 84484; 85025; 93005; 99284

== ENCOUNTER 2023-02-21 08:30 | Outpatient (RCR) | payer MEDICARE, OTHER, SELFPAY | END 2023-02-22 10:00 | disposition home or self-care (01) | LOC: CAR 08:30 | PROVIDERS: PCP Family Medicine; Referring Provider Internal Medicine Cardiovascular Disease; Visit Provider Internal Medicine Cardiovascular Disease | DX: I20.8 Other forms of angina pectoris (principal) | CPT/HCPCS: 93798 ==

== ENCOUNTER → 2023-08-09 08:45 | Outpatient (CLI) | payer MEDICARE, OTHER, SELFPAY | PROVIDERS: PCP Family Medicine; Referring Provider Internal Medicine Critical Care Medicine; Visit Provider Internal Medicine Critical Care Medicine | DX: R06.2 Wheezing (principal); F17.210 Nicotine dependence, cigarettes, uncomplicated; J98.8 Other specified respiratory disorders | CPT/HCPCS: 94060; 94726; 94729 ==

== ENCOUNTER → 2023-09-10 11:34 | Outpatient (CLI) | payer MEDICARE, OTHER, SELFPAY ==
--- NOTE | 2023-09-10 | DI.RAD.S_ITS ---
PROCEDURE: XR CHEST 2V INDICATIONS: COUGH TECHNIQUE: 2 views of the chest were acquired. COMPARISON: [facility], CR, XR CHEST 1V, 02/19/2023, 8:05. FINDINGS: Surgical changes and devices: None. Lungs and pleura: Lungs are clear. No pleural effusions or pneumothorax. Mediastinum: Mediastinal contours are normal. Heart size is normal. Bones and chest wall: No suspicious bony abnormalities. Soft tissues appear unremarkable. Mild multilevel degenerative changes of the spine. IMPRESSION: No acute cardiopulmonary process. Dictated by: Ambika Sidhu M.D. on 09/10/2023 at 17:23 Approved by: Ambika Sidhu M.D. on 09/10/2023 at 17:24
[2023-09-10 12:24] LABS: Influenza A - CEPHEID Flu A NEGATIVE (NEGATIVE); Influenza B - CEPHEID Flu B NEGATIVE (NEGATIVE); Respiratory Syncytial Virus Negative (Negative)
[2023-09-10 12:26] LABS: COVID-19 CEPHEID 4-PLEX PCR Negative (Negative)
== END ==
PROVIDERS: PCP Family Medicine; Referring Provider Family Medicine; Visit Provider Family Medicine
DX: R05.1 Acute cough (principal)
CPT/HCPCS: 0241U; 71046

== ENCOUNTER 2023-10-24 09:14 | Emergency (ER) | payer MEDICARE, OTHER, SELFPAY ==
[2023-10-24] VITALS (12 sets, daily range): BP systolic 123–163; BP diastolic 82–108; PULSE 59–78; RESP 10–34; TEMP 36.9; O2SAT 95–99; BMI 26.2
--- NOTE | 2023-10-24 09:30 | DI.RAD.S_ITS ---
PROCEDURE: XR CHEST 1V INDICATIONS: L CHEST PAIN TECHNIQUE: One view of the chest was acquired. COMPARISON: [facility], CR, XR CHEST 2V, 09/10/2023, 14:28. FINDINGS: Surgical changes and devices: None. Lungs and pleura: Lungs are clear. No pleural effusions or pneumothorax. Mediastinum: Mediastinal contours appear normal. Heart size is normal. Bones and chest wall: No suspicious bony lesions. Overlying soft tissues appear unremarkable. IMPRESSION: No acute cardiopulmonary abnormality is seen. Dictated by: Eulogio Lin M.D. on 10/24/2023 at 9:49 Approved by: Eulogio Lin M.D. on 10/24/2023 at 9:49
--- NOTE | 2023-10-24 09:32 | ED_ITS ---
HPI - Chest Pain General Chief Complaint: Chest Pain Stated Complaint: chest pain pressure Time Seen by Provider: 10/24/23 09:18 History of Present Illness HPI narrative: 68-year-old male with history of hypertension, coronary disease, COPD, ongoing tobacco abuse presents by private vehicle from home for left-sided lower chest pain. Patient has had intermittent left-sided chest pains for ?years?, he is followed by cardiology in his primary care physician for this pain, and he has been told that it is not cardiac in nature. He states that for the last few days he has had more intense pains as well as chills and sweats at night. He does have an upcoming cardiology appointment, however because his pains were worsening he decided to present to the ER for evaluation. Related Data Home Medications Medication Instructions Recorded Confirmed aspirin 81 mg tablet,delayed 81 mg PO QDAY #30 tabs 06/02/16 09/18/23 release atorvastatin 40 mg tablet 40 mg PO DAILY 03/24/19 09/18/23 ramipril 10 mg capsule 10 mg PO DAILY 03/24/19 09/18/23 spironolactone 25 mg tablet 25 mg PO DAILY 03/24/19 09/18/23 carvedilol 12.5 mg tablet 25 mg PO BID 05/05/21 09/18/23 amitriptyline 10 mg tablet 10 mg PO DAILY 07/24/23 09/18/23 pantoprazole 20 mg tablet,delayed 20 mg PO DAILY 07/24/23 09/18/23 release amlodipine 5 mg tablet 5 mg PO DAILY 09/18/23 09/18/23 Previous Rx's Medication Instructions Recorded tiotropium bromide 2.5 2 puff inhalation DAILY #4 grams 07/24/23 mcg/actuation mist for inhalation tiotropium bromide 18 mcg capsule 1 cap inhalation DAILY #1 inh 08/03/23 with inhalation device (Spiriva with HandiHaler) umeclidinium 62.5 mcg-vilanterol 1 inh inhalation DAILY #60 ea 09/18/23 25 mcg/actuation powdr for inhalation (Anoro Ellipta) Allergies Allergy/AdvReac Type Severity Reaction Status Date / Time No Known Drug Allergies Allergy Verified 09/18/23 11:01 Review of Systems Review of Systems Narrative: Otherwise negative Patient History Medical History Interstitial cystitis High blood pressure GERD (gastroesophageal reflux disease) Coronary artery disease Atrial fibrillation Surgical History History of transurethral resection of prostate History of coronary artery stent placement Family History Mother Hyperlipidemia Hypertension Social History marital status: household members: spouse Smoking Status: Current every day smoker alcohol intake: former caffeine: Yes (coffee) Smoking Status: Current every day smoker Substance Use Type: does not use Exam Initial Vital Signs Initial Vital Signs: Vital Signs Pulse Rate 78 10/24/23 09:18 Respiratory Rate 20 10/24/23 09:18 Pulse Oximetry 96 10/24/23 09:18 Const: Awake, alert, no acute distress, nontoxic appearing Cardiac: regular rate, regular rhythm RESP: unlabored, clear bilaterally, no wheezing GI: Atraumatic, soft, nontender, nondistended, no rebound, no guarding MSK: Atraumatic, full range of motion, pulses equal Skin: Warm, Dry, intact, no rashes Neuro: AO x3, CN II-XII grossly intact, moves all extremities Psych: affect normal, mood normal, not suicidal, not homicidal Course Orders Ordered: ED Orders 10/24/23 09:30 Chest [XR chest 1V] Stat EKG-12 Lead Stat 10/24/23 09:32 BNP [NT-proBNP (BNP-Adult 18+)] Stat CBC Auto Diff [Complete Blood Count AUTO DIFF] Stat CMP [Comprehensive Metabolic Panel] Stat Lipase Stat PT [Prothrombin Time INR] Stat Troponin & CK Cardiac Panel Stat 10/24/23 09:39 Respiratory Panel (Film Array) Stat 10/24/23 10:20 CT chest abd pel w con Stat Vital Signs Vital signs: Vital Signs - 8 hr 10/24/23 09:18 10/24/23 09:19 10/24/23 09:19 Temperature Pulse Rate 78 75 Respiratory Rate 20 34 H Blood Pressure 163/108 H Pulse Oximetry 96 97 Oxygen Delivery Method 10/24/23 09:23 10/24/23 09:23 10/24/23 09:27 Temperature 98.4 F Pulse Rate 69 71 Respiratory Rate 13 18 Blood Pressure 157/100 H 141/92 H Pulse Oximetry 98 99 Oxygen Delivery Method Room Air 10/24/23 09:30 10/24/23 09:31 10/24/23 09:31 Temperature Pulse Rate 71 70 Respiratory Rate 22 23 Blood Pressure 141/92 H Pulse Oximetry 98 97 Oxygen Delivery Method 10/24/23 10:00 10/24/23 10:00 10/24/23 10:21 Temperature Pulse Rate 65 Respiratory Rate 10 L Blood Pressure 124/85 125/87 Pulse Oximetry 95 Oxygen Delivery Method 10/24/23 10:21 10/24/23 10:41 10/24/23 10:42 Temperature Pulse Rate 62 59 L Respiratory Rate 17 13 Blood Pressure 129/82 Pulse Oximetry 97 98 Oxygen Delivery Method Room Air 10/24/23 10:42 10/24/23 11:00 10/24/23 11:00 Temperature Pulse Rate 60 61 Respiratory Rate 14 16 Blood Pressure 125/83 Pulse Oximetry 97 95 Oxygen Delivery Method Room Air 10/24/23 11:30 10/24/23 11:30 Temperature Pulse Rate 59 L Respiratory Rate 20 Blood Pressure 123/83 Pulse Oximetry 95 Oxygen Delivery Method Room Air MDM - Chest Pain Differential Diagnosis Differential diagnosis: Likely fracture of rib, pneumothorax and atypical chest pain Lab Data 10/24/23 09:32 10/24/23 09:32 Labs: Lab Results 10/24/23 10/24/23 Range/Units 09:32 09:39 WBC 4.5 (4.5-11.0) X10^3/uL RBC 4.96 (4.5-5.9) X10^6/uL Hgb 15.7 (13.5-17.5) g/dL Hct 45.9 (41-53) % MCV 92.6 (80-100) fL MCH 31.6 (26-34) PG MCHC 34.1 (30-36) % RDW 13.2 (11.6-14.8) % Plt Count 241 (150-400) X10^3/uL Neut % (Auto) 60.9 (50-75) % Lymph % (Auto) 26.3 (25-40) % [place] % (Auto) 8.3 (3-14) % Eos % (Auto) 3.3 (2-4) % Baso % (Auto) 1.2 (0-2) % Neut # (Auto) 2700 (8855-1846) /uL Lymph # (Auto) 1200 (5342-8108) /uL [place] # (Auto) 400 (0-900) /uL Eos # (Auto) 100 (0-450) /uL Baso # (Auto) 100 (0-100) /uL PT 12.8 H (9.4-12.5) SECONDS INR 1.1 (0.9-1.3) Sodium 136 L (137-145) mmol/L Potassium 4.4 (3.4-5.1) mmol/L Chloride 100 (98-107) mmol/L Carbon Dioxide 29 (22-32) mmol/L BUN 8 L (9-20) mg/dL Creatinine 0.82 (0.66-1.25) mg/dL Estimated GFR > 60 (>60) mL/min BUN/Creatinine Ratio 9.8 (6-22) Glucose 110 (80-110) mg/dL Calcium 9.5 (8.4-10.2) mg/dL Total Bilirubin 1.4 H (0.2-1.3) mg/dL AST 26 (17-59) IU/L ALT 27 (<50) IU/L Alkaline Phosphatase 62 (38-126) U/L Total Creatine Kinase 88 (55-170) U/L Troponin I < 0.012 (0.01-0.034) ng/mL NT-Pro-B Natriuret Pep 44 (<125) pg/mL Total Protein 7.5 (6.3-8.2) g/dL Albumin 4.4 (3.5-5.0) g/dL Globulin 3.1 (1.7-4.1) g/dL Albumin/Globulin Ratio 1.4 (1.0-2.8) Lipase 103 (23-300) U/L Chlamy pneumoniae PCR Not detected (Not Detect) Adenovirus (PCR) Not detected (Not Detect) B.parapertussis DNA PCR Not detected (Not Detecte) Coronavirus OC43 (PCR) Not detected (Not Detect) Coronavirus HKU1 (PCR) Not detected (Not Detect) Coronavirus 229E (PCR) Not detected (Not Detect) SARS-CoV-2 (PCR) Not detected (Not Detecte) Coronavirus NL63 (PCR) Not detected (Not Detect) Human Metapneumovir PCR Not detected (Not Detect) Influenza Type A (PCR) Not detected (Not Detect) Influenza Type B (PCR) Not detected (Not Detect) M. pneumoniae (PCR) Not detected (Not Detect) Parainfluenza 1 (PCR) Not detected (Not Detect) Parainfluenza 2 (PCR) Not detected (Not Detect) Parainfluenza 3 (PCR) Not detected (Not Detect) Parainfluenza 4 (PCR) Not detected (Not Detect) RSV (PCR) Not detected (Not Detect) Entero/Rhino (PCR) Not detected (Not Detect) MDM Narrative Medical decision making narrative: Nontoxic appearing patient with chronic left-sided chest pain presenting for worsening chest pain. Hemodynamically stable, no acute distress. EKG is normal sinus rhythm without ischemic findings. We will order labs and chest x-ray imaging. Laboratory work is unremarkable, chest x-ray is negative for acute process. Record review shows that patient has previously had pulmonary nodules and there has been no recent follow up. We will order CT of the chest to see if this reveals any cause of the patient's left-sided chest pain. CT department informed me that patient's PCP also has a standing order for an abdomen and pelvis CT, we will add this scan while patient is currently in the emergency department. CT of the chest abdomen and pelvis shows coronary disease, several small right- sided lung nodules. No explanation for patient's left-sided pain. All lab and imaging findings discussed with patient at bedside. I recommended close PCP and cardiology follow up. Patient was informed of his lung nodules, he states that he is aware of these nodules, but it does appear that least 1 of them has grown and is now spiculated. Patient will follow with his PCP, he states that he has an appointment in 2 weeks already scheduled. ED return precautions discussed at bedside. Patient expressed understanding of the plan and is in agreement at this time. All questions answered at the time of discharge. Discharge Plan Departure Patient Disposition: Home Clinical Impression: Atypical chest pain Instructions: DI for Chest Pain Activity Restrictions/Additional Instructions: Keep your follow up with Cardiology as scheduled. Your CT of the chest, abdomen, and pelvis today showed some lung nodules, however I do not believe this is related to your chest pain. Follow up with your PCP. Lungs and Pleura: Mild apically predominant emphysema. No pneumothorax or pleural effusions. 6 mm subpleural nodule within the right lower lung anteriorly (series 5, image 230). Spiculated 14 mm nodule within the right posteromedial costophrenic angle (series 5, image 285). Subpleural 4 mm nodule within the left lower lobe posteromedially (series 5, image 217). Prescriptions: No Action aspirin 81 MG tablet,delayed release (DR/EC) 81 mg PO QDAY Qty: 30 atorvastatin 40 mg Tablet 40 mg PO DAILY spironolactone 25 mg Tablet 25 mg PO DAILY ramipril 10 mg Capsule 10 mg PO DAILY carvedilol 12.5 mg tablet 25 mg PO BID amitriptyline 10 mg tablet 10 mg PO DAILY pantoprazole 20 mg tablet,delayed release (DR/EC) 20 mg PO DAILY tiotropium bromide 2.5 mcg/actuation mist 2 puff inhalation DAILY Qty: 4 5RF tiotropium bromide [Spiriva with HandiHaler] 18 mcg capsule, w/inhalation device 1 cap inhalation DAILY Qty: 1 11RF Rx Instructions: puncture 1 cap using device; one dose = 2 inhalations amlodipine 5 mg tablet 5 mg PO DAILY Anoro Ellipta 62.5-25 mcg/actuation blister with device 1 inh inhalation DAILY Qty: 60 5RF Referrals: Nadeem Hess MD [Primary Care Provider] - Stand Alone Forms: Patient Portal/API
[2023-10-24 09:44] LABS: Add Manual Diff / Slide Review NO; Basophils Absolute Auto 100 /uL (0-100); Basophils Percent Auto 1.2 % (0-2); Eosinophils Absolute Auto 100 /uL (0-450); Eosinophils Percent Auto 3.3 % (2-4); Hematocrit 45.9 % (41-53); Hemoglobin 15.7 g/dL (13.5-17.5); Lymphocytes Absolute Auto 1200 /uL (1100-4500); Lymphocytes Percent Auto 26.3 % (25-40); Mean Corpuscular HGB Conc 34.1 % (30-36); Mean Corpuscular Hemoglobin 31.6 PG (26-34); Mean Corpuscular Volume 92.6 fL (80-100); Monocytes Absolute Auto 400 /uL (0-900); Monocytes Percent Auto 8.3 % (3-14); Neutrophils Absolute Auto 2700 /uL (1500-7000); Neutrophils Percent Auto 60.9 % (50-75); Platelet Count 241 X10^3/uL (150-400); Red Blood Cell Count 4.96 X10^6/uL (4.5-5.9); Red Cell Distribution Width 13.2 % (11.6-14.8); White Blood Cell Count 4.5 X10^3/uL (4.5-11.0)
[2023-10-24 09:53] LABS: INR 1.1 (0.9-1.3); Prothrombin Time 12.8 SECONDS (9.4-12.5)
[2023-10-24 09:58] LABS: Alanine Aminotransferase 27 IU/L (<50); Albumin 4.4 g/dL (3.5-5.0); Albumin Globulin Ratio 1.4 (1.0-2.8); Alkaline Phosphatase 62 U/L (38-126); Aspartate Aminotransferase 26 IU/L (17-59); BUN Creatinine Ratio 9.8 (6-22); Bilirubin Total 1.4 mg/dL (0.2-1.3); Blood Urea Nitrogen 8 mg/dL (9-20); Calcium 9.5 mg/dL (8.4-10.2); Carbon Dioxide 29 mmol/L (22-32); Chloride 100 mmol/L (98-107); Creatine Kinase 88 U/L (55-170); Estimated Glomerular Filt Rate > 60 mL/min (>60); Globulin 3.1 g/dL (1.7-4.1); Glucose 110 mg/dL (80-110); HEMOLYSIS < 15 (0-50); Lipase 103 U/L (23-300); Potassium 4.4 mmol/L (3.4-5.1); Sodium 136 mmol/L (137-145); Total Protein 7.5 g/dL (6.3-8.2)
[2023-10-24 10:09] LABS: NT-proBNP (BNP-Adult 18+) 44 pg/mL (<125); Troponin I < 0.012 ng/mL (0.01-0.034)
--- NOTE | 2023-10-24 10:20 | DI.CT.S_ITS ---
PROCEDURE: CT CHEST ABD PEL W CON INDICATIONS: L sided chest pain TECHNIQUE: After the administration of intravenous contrast, 5 mm thick sections acquired from the lung apices to the symphysis. 5 mm coronal and sagittal reformats were performed, with additional 7 mm MIP reformats through the lungs. For radiation dose reduction, the following was used: automated exposure control, adjustment of mA and/or kV according to patient size. COMPARISON: None. FINDINGS: Image quality: Excellent. CHEST: Lower Neck: No enlarged lymph nodes. Thyroid: No thyroid nodules which require sonographic follow up, per consensus guidelines. Axillae: No enlarged lymph nodes. Chest Wall: Unremarkable. Lungs and Pleura: Mild apically predominant emphysema. No pneumothorax or pleural effusions. 6 mm subpleural nodule within the right lower lung anteriorly (series 5, image 230). Spiculated 14 mm nodule within the right posteromedial costophrenic angle (series 5, image 285). Subpleural 4 mm nodule within the left lower lobe posteromedially (series 5, image 217). Heart: Heart size is normal. Calcification of the coronary vasculature is present. No pericardial effusion. Thoracic Vessels: The aorta and pulmonary arteries demonstrate normal size. Mediastinum and Carole: No enlarged lymph nodes. Esophagus: No wall thickening. No hiatal hernia. ABDOMEN: Liver: No solid mass. Gallbladder: No radiopaque gallstones or wall thickening. Biliary ducts: No biliary dilation. Pancreas: No ductal dilation. Spleen: Size is within normal limits. Adrenal Glands: No adrenal nodules. Kidneys and Ureters: No hydronephrosis. No solid mass. No complex renal cystic lesion which requires follow up. Stomach and Bowel: Normal colonic caliber, without significant wall thickening. Normal appendix. Peritoneum: No abnormal intraperitoneal fluid. No free air. Ventral Wall: No hernia. Abdominal Nodes: No retroperitoneal or mesenteric adenopathy by size criteria. Vessels: Aorta and inferior vena cava are normal in size. PELVIS: Pelvic Organs: Unremarkable. Bladder: Unremarkable. Pelvic Nodes: No enlarged lymph nodes. Miscellaneous: No inguinal hernias are seen. Bones: Unremarkable. IMPRESSION: 1. No acute process. 2. Bilateral pulmonary nodules. Follow-up is recommended as below. 3. Coronary artery disease. 4. Emphysema. Fleischner Society criteria for SOLID lung nodule followup. Nodule size (mm)Low-risk patientHigh-risk patient<6 (single or multiple)No routine followup.Optional CT at 12 months. 6-8 (single or multiple)CT at 6-12 months, then optional CT at 18-24 mo.CT at 6-12 months, then CT at 18-24 months. >8 (single)CT, PET-CT, or biopsy at 3 months. Same as for low-risk pts. >8 (multiple)CT at 3-6 months, then optional CT at 18-24 mo.CT at 3-6 months, then CT at 18-24 months. Fleischner Society criteria for SUB-SOLID lung nodule followup. Solitary pure ground-glass nodules<6 mm (ground glass or part solid)No followup needed. 6 mm or larger (ground glass)CT at 6-12 months to confirm persistence, then CT every 2 years until 5 years.6 mm or larger (part solid)CT at 3-6 months to confirm persistence, then annual CT until 5 years if unchanged and solid component remains <6 mm. Multiple sub-solid nodules<6 mmCT at 3-6 months, then CT consider at 2 & 4 years for high risk patients. [address] at 3-6 months. Subsequent management based on most suspicious lesions. Recommendations do not apply to lung cancer screening, patients with immunosuppression, or patients with known primary cancer. Dictated by: Eulogio Lin M.D. on 10/24/2023 at 10:46 Approved by: Eulogio Lin M.D. on 10/24/2023 at 10:53
[2023-10-24 11:26] LABS: Adenovirus Not Detected (Not Detect); B. parapertussis Not Detected (Not Detecte); Bordetella pertussis Not Detected (Not Detect); Chlamydophila pneumoniae Not Detected (Not Detect); Coronavirus 229E Not Detected (Not Detect); Coronavirus HKU1 Not Detected (Not Detect); Coronavirus NL 63 Not Detected (Not Detect); Coronavirus OC43 Not Detected (Not Detect); Human Metapneumovirus Not Detected (Not Detect); Human Rhinovirus/Enterovirus Not Detected (Not Detect); Influenza A Not Detected (Not Detect); Influenza B Not Detected (Not Detect); Mycoplasma pneumoniae Not Detected (Not Detect); Parainfluenza Virus 1 Not Detected (Not Detect); Parainfluenza Virus 2 Not Detected (Not Detect); Parainfluenza Virus 3 Not Detected (Not Detect); Parainfluenza Virus 4 Not Detected (Not Detect); Respiratory Syncytial Virus Not Detected (Not Detect); SARS- CoV-2 Not Detected (Not Detecte)
== END 2023-10-24 11:45 | disposition home or self-care (01) ==
PROVIDERS: Emergency Provider Emergency Medicine; PCP Family Medicine
DX: R07.89 Other chest pain (principal); Z20.822 Contact with and (suspected) exposure to COVID-19; Z79.899 Other long term (current) drug therapy
CPT/HCPCS: 36415; 71045; 71260; 74177; 80053; 82550; 83690; 83880; 84484; 85025; 85610; 87633; 93005; 93010; 99284

== ENCOUNTER → 2024-01-05 15:35 | Outpatient (CLI) | payer MEDICARE, OTHER, SELFPAY ==
--- NOTE | 2024-01-05 16:22 | DI.MRI.S_ITS ---
PROCEDURE: MR SHOULDER LT WO CON INDICATIONS: Nontraumatic complete tear of left rotator cuff TECHNIQUE: Noncontrast oblique coronal T2 fast spin echo with fat saturation, oblique sagittal T1 spin echo and T2 fast spin echo with fat saturation, axial T1 spin echo and T2 fast spin echo with fat saturation through the shoulder. COMPARISON: [facility] [place], CR, XR SHOULDER 2+ VIEWS LEFT, 12/26/2023, 14:15. [facility], MR, MR SHOULDER LEFT WITHOUT CONTRAST, 03/29/2022, 10:07. [facility], MR, MR SHOULDER LT WO CON, 06/01/2021, 18:29. FINDINGS: Image quality: Excellent. Rotator cuff: There are postsurgical changes related to rotator cuff tendon repair. There is at least high-grade partial thickness tear of the distal supraspinatus tendon. There is mild supraspinatus muscle atrophy. There is moderate infraspinatus and subscapularis tendinosis with low-grade tendon tear. No. Infraspinatus or subscapularis muscle atrophy. Bones and bursae: No bone marrow contusions or fractures. Acromioplasty and partial resection of the distal clavicle. Moderate acromioclavicular and glenohumeral joint degeneration. The acromion demonstrates conventional anatomy, without an os acromiale. No pathologic subacromial-subdeltoid or subcoracoid bursal fluid is present. Capsule and soft tissues: There is diffuse degenerative labral tear, most pronounced in the anterior superior labrum. The long head of the biceps tendon demonstrates normal location and morphology. The rotator interval appears normal, without fibrosis. The coracohumeral ligament is normal in thickness. IMPRESSION: 1. Postsurgical changes related to rotator cuff tendon repair. There is at least high-grade partial tear of the distal supraspinatus tendon. No tendon retraction. No supraspinatus muscle atrophy. 2. Moderate infraspinatus and subscapularis tendinosis without high-grade tendon tear. No infraspinatus or subscapularis muscle atrophy. 3. Moderate acromioclavicular and glenohumeral joint degeneration. There postsurgical changes at acromioclavicular joint with partial resection of the distal clavicle and acromioplasty. 4. Diffuse degenerate labral tear. Dictated by: Natalie Monique M.D. on 01/07/2024 at 9:41 Approved by: Natalie Monique M.D. on 01/07/2024 at 10:24
== END ==
PROVIDERS: PCP Family Medicine; Referring Provider Orthopaedic Surgery; Visit Provider Orthopaedic Surgery
DX: M75.122 Complete rotator cuff tear or rupture of left shoulder, not specified as traumatic (principal); M19.012 Primary osteoarthritis, left shoulder; S43.492A Other sprain of left shoulder joint, initial encounter
CPT/HCPCS: 73221

== ENCOUNTER → 2024-01-31 08:45 | Outpatient (CLI) | payer MEDICARE, OTHER, SELFPAY ==
--- NOTE | 2024-01-31 08:46 | DI.CT.S_ITS ---
PROCEDURE: CT CHEST WO CON INDICATIONS: Multiple lung nodules, evaluate for interval change TECHNIQUE: Noncontrast 5 mm thick sections acquired from the pulmonary apices to the posterior costophrenic angles. 1 mm lung window, 5 mm thick coronal and sagittal and 7 mm axial MIP reformats were then acquired. For radiation dose reduction, the following was used: automated exposure control, adjustment of mA and/or kV according to patient size. COMPARISON: [facility], CT, CT CHEST ABD PEL W CON, 01/13/2022, 11:09. [facility], CT, CT CHEST ABD PEL W CON, 10/24/2023, 10:40. FINDINGS: Image quality: Diagnostic. Lower Neck: No enlarged lymph nodes. Thyroid: No thyroid nodules which require sonographic follow up, per consensus guidelines. Axillae: No enlarged lymph nodes. Chest Wall: Unremarkable. Bones: Unremarkable. Lungs and Pleura: No pneumothorax or pleural effusions. Moderate centrilobular emphysema. Bronchial thickening with a few regions of bronchial secretions. Stable lenticular nodularity in the medial right lower lobe compared with 2022, favoring a scar (series 3, image 286). Stable juxtapleural nodules, favoring benign intrapulmonary lymph nodes. Additional solid pulmonary micro nodules are present, mostly within the right lower lobe, stable since 202. For instance, the 4 millimeter nodule in the right lower lobe (series 3, image 266). Heart: Heart size is normal. No pericardial effusion. Three-vessel coronary calcifications, marked for age. Thoracic Vessels: Dilated ascending aorta measuring 4.3 centimeter. Mediastinum and Carole: No enlarged lymph nodes. Esophagus: No wall thickening. No hiatal hernia. Upper Abdomen: Fluid attenuating left renal cysts. IMPRESSION: Stable solid pulmonary nodules, including the presumed scar in the medial right lower lobe compared with 2022. Findings favor a benign etiology. Consider yearly lung cancer screening if eligible. Marked coronary artery calcifications for age. Correlate with risk factors and advise counseling. Dilated ascending aorta measuring 4.3 centimeter, not significantly changed since prior comparison. Yearly follow-up is recommended. Dictated by: Dontrell Cid M.D. on 01/31/2024 at 12:19 Approved by: Dontrell Cid M.D. on 01/31/2024 at 12:47
== END ==
PROVIDERS: PCP Family Medicine; Referring Provider Internal Medicine Critical Care Medicine; Visit Provider Internal Medicine Critical Care Medicine
DX: I77.810 Thoracic aortic ectasia (principal); R91.8 Other nonspecific abnormal finding of lung field; I25.10 Atherosclerotic heart disease of native coronary artery without angina pectoris
CPT/HCPCS: 71250

== ENCOUNTER → 2024-08-19 07:34 | Outpatient (CLI) | payer MEDICARE, OTHER, SELFPAY ==
--- NOTE | 2024-08-19 | DI.CT.S_ITS ---
PROCEDURE: CT CHEST W CON INDICATIONS: Thoracic aortic ectasia, chronic cough TECHNIQUE: After the administration of intravenous contrast, 5 mm thick sections acquired from the pulmonary apices to the posterior costophrenic angles. 1 mm axial lung, 5 mm thick coronal and sagittal reformats and 7 mm axial MIP were acquired. For radiation dose reduction, the following was used: automated exposure control, adjustment of mA and/or kV according to patient size. COMPARISON: [facility], CT, CT CHEST WO CON, 01/31/2024, 9:05. [facility], CT, CT CHEST ABD PEL W CON, 10/24/2023, 10:40. [facility], CT, CT CHEST ABD PEL W CON, 01/13/2022, 11:09. FINDINGS: Image quality: Diagnostic. Lower Neck: No enlarged lymph nodes. Thyroid: No thyroid nodules which require sonographic follow up, per consensus guidelines. Axillae: No enlarged lymph nodes. Chest Wall: Unremarkable. Bones: Age-appropriate bony degenerative changes are seen. Accentuated thoracic kyphosis is seen. Lungs and Pleura: No pneumothorax or pleural effusions. Centrilobular emphysematous changes are seen. These are more prominent at the lung apices than at the lung bases. Likely mild scarring is again seen involving the right lower lobe medially, which is similar to the prior examination. No consolidation or suspicious nodules. Heart: Heart size is normal. No pericardial effusion. There is moderate coronary artery calcification. Thoracic Vessels: The ascending thoracic aorta measures 4.1 cm transversely on coronal images. The 3.8 cm transversely at the level of the right main pulmonary artery. Mediastinum and Carole: No enlarged lymph nodes. Esophagus: No wall thickening. No hiatal hernia. Upper Abdomen: Nonenhancing left renal cysts are seen. The visualized portions of the upper abdominal structures are otherwise unremarkable for imaging technique. IMPRESSION: Aneurysm ascending thoracic aorta, aortic arch, and descending thoracic aorta. No focal infiltrates are seen. Apparent scarring is again seen involving the right lower lobe medially. Additional findings: Moderate coronary calcification Nonenhancing left renal cysts Dictated by: Jeramy Munroe M.D. on 08/19/2024 at 15:07 Approved by: Jeramy Munroe M.D. on 08/19/2024 at 15:11
[2024-08-19 08:08] LABS: Estimated Glomerular Filt Rate > 60 mL/min (>60)
== END ==
PROVIDERS: Radiology Diagnostic Radiology; PCP Family Medicine; Referring Provider Family Medicine; Visit Provider Family Medicine
DX: I71.21 Aneurysm of the ascending aorta, without rupture (principal); I71.22 Aneurysm of the aortic arch, without rupture; I71.23 Aneurysm of the descending thoracic aorta, without rupture; R05.3 Chronic cough; J98.4 Other disorders of lung; I25.10 Atherosclerotic heart disease of native coronary artery without angina pectoris; N28.1 Cyst of kidney, acquired
CPT/HCPCS: 71260; 82565; Q9967

== ENCOUNTER → 2024-10-27 07:51 | Outpatient (CLI) | payer MEDICARE, OTHER, SELFPAY ==
--- NOTE | 2024-10-27 07:53 | DI.CT.S_ITS ---
PROCEDURE: CT ABDOMEN PELVIS W CON INDICATIONS: ABDOMINAL PAIN TECHNIQUE: After the administration of intravenous contrast, axial sections acquired from the lung bases to the pubic symphysis. Coronal and sagittal reformats were performed. For radiation dose reduction, the following was used: automated exposure control, adjustment of mA and/or kV according to patient size. COMPARISON: [facility], CT, CT CHEST ABD PEL W CON, 01/13/2022, 11:09. FINDINGS: Image quality: Diagnostic. Lower Chest: Mild bibasilar scarring. ABDOMEN: Liver: At least moderate hepatic steatosis. Scattered subcentimeter hypoattenuating lesions, too small to characterize by CT but probably small cysts. Gallbladder: Sludge ball versus 4 millimeter polyp; no further follow-up indicated given size Biliary ducts: No biliary dilation. Pancreas: No ductal dilation. Spleen: Size is within normal limits. Adrenal Glands: Stable nodular thickening of the left adrenal gland period Kidneys and Ureters: No hydronephrosis. No solid mass. No complex renal cystic lesion which requires follow up. Stomach and Bowel: Normal colonic caliber, without significant wall thickening. Colonic diverticulosis without evidence of diverticulitis. Normal appendix. Peritoneum: No abnormal intraperitoneal fluid. No free air. Ventral Wall: No significant ventral hernia. Abdominal Nodes: No retroperitoneal or mesenteric adenopathy by size criteria. Vessels: Aorta and inferior vena cava are normal in size. PELVIS: Pelvic Organs: Prior TURP. Bladder: No bladder wall thickening, accounting for underdistention. Pelvic Nodes: No enlarged lymph nodes. Miscellaneous: No inguinal hernias are seen. Bones: No aggressive osseous abnormality. Degenerative disc disease of the lumbar spine. IMPRESSION: Colonic diverticulosis without evidence of diverticulitis. Otherwise, no findings to explain the patient's chronic left abdominal pain. Dictated by: Dontrell Cid M.D. on 10/27/2024 at 14:00 Approved by: Dontrell Cid M.D. on 10/27/2024 at 14:05
[2024-10-27 08:14] LABS: Estimated Glomerular Filt Rate > 60 mL/min (>60)
== END ==
PROVIDERS: Radiology Diagnostic Radiology; PCP Family Medicine; Referring Provider Internal Medicine Gastroenterology; Visit Provider Internal Medicine Gastroenterology
DX: Z13.89 Encounter for screening for other disorder (principal); K57.30 Diverticulosis of large intestine without perforation or abscess without bleeding; K76.0 Fatty (change of) liver, not elsewhere classified; M51.369 Other intervertebral disc degeneration, lumbar region without mention of lumbar back pain or lower extremity pain; R10.84 Generalized abdominal pain
CPT/HCPCS: 36415; 74177; 82565; Q9967

== ENCOUNTER 2024-11-03 04:58 | Emergency (ER) | payer MEDICARE, OTHER, SELFPAY ==
[2024-11-03] VITALS (11 sets, daily range): BP systolic 114–198; BP diastolic 76–122; PULSE 76–94; RESP 14–28; TEMP 36.7; O2SAT 89–95; BMI 25.7
--- NOTE | 2024-11-03 05:03 | DI.RAD.S_ITS ---
PROCEDURE: XR CHEST 1V INDICATIONS: chest pain TECHNIQUE: One view of the chest was acquired. COMPARISON: [facility], CR, XR CHEST 1V, 10/24/2023, 9:34. FINDINGS: Surgical changes and devices: None. Lungs and pleura: Lungs are clear. No pleural effusions or pneumothorax. Mediastinum: Mediastinal contours appear normal. Heart size is normal. Bones and chest wall: No suspicious bony lesions. Overlying soft tissues appear unremarkable. IMPRESSION: No acute cardiopulmonary pathology. Dictated by: Raman Bishop M.D. on 11/03/2024 at 8:06 Approved by: Raman Bishop M.D. on 11/03/2024 at 8:08
--- NOTE | 2024-11-03 05:08 | ED.GENADULT ---
HPI - General Adult General Chief complaint: Shortness of Breath/Dyspnea Stated complaint: SOB Time Seen by Provider: 11/03/24 05:03 History of Present Illness HPI narrative: 69-year-old male with history of 40+ pack year smoking, COPD not on home oxygen, history of CAD status post remote coronary stenting, now with 3-4 days' duration of increased cough that is more productive, yellow-green sputum, no bloody sputum, increasing shortness of breath especially tonight. No leg pain or swelling. He does not take blood thinner medications besides aspirin. Not exposed to persons with recent respiratory illness symptoms. Has been prescribed topical inhaled medication, not recently using this regimen. Related Data Home Medications Medication Instructions Recorded Confirmed aspirin 81 mg tablet,delayed 81 mg PO QDAY #30 tabs 06/02/16 02/08/24 release atorvastatin 40 mg tablet 40 mg PO DAILY 03/24/19 02/08/24 ramipril 10 mg capsule 10 mg PO DAILY 03/24/19 02/08/24 spironolactone 25 mg tablet 25 mg PO DAILY 03/24/19 02/08/24 carvedilol 12.5 mg tablet 25 mg PO BID 05/05/21 02/08/24 amitriptyline 10 mg tablet 10 mg PO DAILY 07/24/23 02/08/24 pantoprazole 20 mg tablet,delayed 20 mg PO DAILY 07/24/23 02/08/24 release amlodipine 5 mg tablet 5 mg PO DAILY 09/18/23 02/08/24 Previous Rx's Medication Instructions Recorded tiotropium bromide 18 mcg capsule 1 cap inhalation DAILY #1 inh 08/03/23 with inhalation device (Spiriva with HandiHaler) umeclidinium 62.5 mcg-vilanterol 1 inh inhalation DAILY #60 ea 09/18/23 25 mcg/actuation powdr for inhalation (Anoro Ellipta) umeclidinium 62.5 mcg/actuation 1 inh inhalation DAILY #30 ea 02/13/24 blister powder for inhalation tiotropium bromide 2.5 2 puff inhalation DAILY #4 grams 05/14/24 mcg/actuation mist for inhalation prednisone 20 mg tablet 40 mg (2 x 20 mg) PO DAILY 5 days 11/03/24 #10 tabs Allergies Allergy/AdvReac Type Severity Reaction Status Date / Time No Known Drug Allergies Allergy Verified 02/08/24 08:59 Patient History Medical History Interstitial cystitis High blood pressure GERD (gastroesophageal reflux disease) Coronary artery disease Atrial fibrillation Surgical History History of transurethral resection of prostate History of coronary artery stent placement Family History Mother Hyperlipidemia Hypertension Social History marital status: household members: spouse Smoking Status: Current every day smoker alcohol intake: former caffeine: Yes (coffee) Smoking Status: Current every day smoker Exam Narrative Exam Narrative: GENERAL: Well-developed patient, in mild distress. HEAD: Atraumatic. Normocephalic. EYES: Pupils equal round and reactive. Extraocular motions intact. No scleral icterus. No injection or drainage. ENT: Nose without bleeding, purulent drainage. Throat without erythema, tonsillar hypertrophy or exudate. Airway patent. NECK: Trachea midline. Non tender CARDIOVASCULAR: Regular rate and rhythm without murmurs, gallops, or rubs. RESPIRATORY: Bilateral wheeze, slight intercostal retractions, no suprasternal retractions, speaks in full sentences. GASTROINTESTINAL: Abdomen soft, non-tender, nondistended. EXTREMITIES: No edema or joint tenderness. BACK: Nontender without deformity or crepitance. No flank tenderness. NEURO: AOx3. Motor functions grossly nonfocal SKIN: No rash or erythema of visible areas Initial Vital Signs Initial Vital Signs: Vital Signs Temperature 98.1 F 11/03/24 05:03 Pulse Rate 88 11/03/24 05:03 Respiratory Rate 20 11/03/24 05:03 Blood Pressure 198/122 H 11/03/24 05:03 Pulse Oximetry 89 L 11/03/24 05:03 Oxygen Delivery Method Room Air 11/03/24 05:03 Course Orders Ordered: ED Orders 11/03/24 05:03 XR chest 1V Stat EKG-12 Lead Stat 11/03/24 05:12 Covid-19 + FLU A/B + RSV - PCR Stat 11/03/24 05:22 Complete Blood Count AUTO DIFF Stat Comprehensive Metabolic Panel Stat Lipase Stat Troponin & CK Cardiac Panel Stat Discontinued Medications Albuterol (Albuterol 2.5 Mg/3 Ml Neb (Adult)) 5 mg INH NOW ONE Stop: 11/03/24 05:37 Last Admin: 11/03/24 05:51 Dose: 5 mg Documented By: DEBORAH Albuterol (Albuterol 2.5 Mg/3 Ml Neb (Adult)) 5 mg INH NOW ONE Stop: 11/03/24 06:13 Last Admin: 11/03/24 06:22 Dose: 5 mg Documented By: DEBORAH Albuterol (Albuterol Hfa Prepack) 1 box MISC DIRECTED ONE Stop: 11/03/24 06:54 Last Admin: 11/03/24 07:02 Dose: 1 box Albuterol/Ipratropium (Albuterol/Ipratropium 3 Ml Ampul) 3 ml INH NOW ONE Stop: 11/03/24 05:20 Last Admin: 11/03/24 05:23 Dose: 3 ml Documented By: DEBORAH Albuterol/Ipratropium (Albuterol/Ipratropium 3 Ml Ampul) 3 ml INH NOW ONE Stop: 11/03/24 05:29 Last Admin: 11/03/24 05:32 Dose: 3 ml Documented By: DEBORAH Magnesium Sulfate (Magnesium Sulfate) 2 gm in 50 mls @ 150 mls/hr IV NOW ONE Stop: 11/03/24 05:52 Last Infusion: 11/03/24 06:10 Dose: Infused Documented By: Co-signed By: REID Admin: 11/03/24 05:38 Dose: 150 mls/hr Documented By: Co-signed By: REID Methylprednisolone (Methylprednisolone 125 Mg/2 Ml Vial) 125 mg IV NOW ONE Stop: 11/03/24 05:20 Last Admin: 11/03/24 05:25 Dose: 125 mg Documented By: REID Vital Signs Vital signs: Vital Signs - 8 hr 11/03/24 05:03 11/03/24 05:05 11/03/24 05:06 Temperature 98.1 F Pulse Rate 88 87 94 H Respiratory Rate 20 Blood Pressure 198/122 H Pulse Oximetry 89 L 89 L 90 L Oxygen Delivery Method Room Air Oxygen Flow Rate Fraction of Inspired Oxygen 11/03/24 05:06 11/03/24 05:23 11/03/24 05:30 Temperature Pulse Rate 89 83 Respiratory Rate 24 14 Blood Pressure 198/122 H Pulse Oximetry 90 L 91 Oxygen Delivery Method Room Air Oxygen Flow Rate 0 Fraction of Inspired Oxygen 21 11/03/24 05:31 11/03/24 05:31 11/03/24 05:32 Temperature Pulse Rate 88 82 Respiratory Rate 28 H 18 Blood Pressure 120/76 Pulse Oximetry 90 L 92 Oxygen Delivery Method Room Air Room Air Oxygen Flow Rate 0 Fraction of Inspired Oxygen 11/03/24 05:51 11/03/24 06:00 11/03/24 06:00 Temperature Pulse Rate 82 76 Respiratory Rate 24 15 Blood Pressure 114/76 Pulse Oximetry 92 95 Oxygen Delivery Method Room Air Oxygen Flow Rate 0 Fraction of Inspired Oxygen 11/03/24 06:22 11/03/24 06:30 11/03/24 06:30 Temperature Pulse Rate 78 77 Respiratory Rate 18 16 Blood Pressure 121/84 Pulse Oximetry 92 91 Oxygen Delivery Method Room Air Oxygen Flow Rate 0 Fraction of Inspired Oxygen Medical Decision Making Lab Data Lab results reviewed: Yes I reviewed the patient's lab results. Lab results narrative: White blood cell count 7300, hemoglobin 16.5, platelets adequate. Basic metabolic panel unremarkable. Liver function lipase normal. Troponin negative/unmeasurable. COVID/flu/RSV swab negative. 11/03/24 05:22 11/03/24 05:22 Labs: Lab Results 11/03/24 11/03/24 Range/Units 05:12 05:22 WBC 7.3 (4.5-11.0) X10^3/uL RBC 5.13 (4.5-5.9) X10^6/uL Hgb 16.5 (13.5-17.5) g/dL Hct 47.5 (41-53) % MCV 92.6 (80-100) fL MCH 32.2 (26-34) PG MCHC 34.8 (30-36) % RDW 13.1 (11.6-14.8) % Plt Count 228 (150-400) X10^3/uL Neut % (Auto) 68.4 (50-75) % Lymph % (Auto) 17.8 L (25-40) % [place] % (Auto) 7.6 (3-14) % Eos % (Auto) 5.2 H (2-4) % Baso % (Auto) 1.0 (0-2) % Neut # (Auto) 5000 (2593-7162) /uL Lymph # (Auto) 1300 (7009-1503) /uL [place] # (Auto) 600 (0-900) /uL Eos # (Auto) 400 (0-450) /uL Baso # (Auto) 100 (0-100) /uL Sodium 136 L (137-145) mmol/L Potassium 4.1 (3.4-5.1) mmol/L Chloride 102 (98-107) mmol/L Carbon Dioxide 26 (22-32) mmol/L BUN 13 (9-20) mg/dL Creatinine 0.92 (0.66-1.25) mg/dL Estimated GFR > 60 (>60) mL/min BUN/Creatinine Ratio 14.1 (6-22) Glucose 104 (80-110) mg/dL Calcium 9.4 (8.4-10.2) mg/dL Total Bilirubin 1.3 (0.2-1.3) mg/dL AST 24 (17-59) IU/L ALT 22 (<50) IU/L Alkaline Phosphatase 75 (38-126) U/L Total Creatine Kinase 61 (55-170) U/L Troponin I < 0.012 (0.01-0.034) ng/mL Total Protein 7.9 (6.3-8.2) g/dL Albumin 4.6 (3.5-5.0) g/dL Globulin 3.3 (1.7-4.1) g/dL Albumin/Globulin Ratio 1.4 (1.0-2.8) Lipase 104 (23-300) U/L SARS-CoV-2 (PCR) Negative (Negative) Influenza A (RT-PCR) Flu a negative (NEGATIVE) Influenza B (RT-PCR) Flu b negative (NEGATIVE) RSV (PCR) Negative (Negative) ECG Data Attestation: I personally reviewed and interpreted this ECG as follows: Interpretation: Normal sinus rhythm with rate of 91, no obvious ST segment elevation or depression changes. MT 154, QRS 88, QTC 428. MDM Narrative Medical decision making narrative: 69-year-old male continues to smoke, 40 pack years history smoking, history of COPD, no oxygen or steroid, with increasing productive cough over the last few days, increasing shortness of breath, bilateral wheeze on examination, speaking full sentences, normal oxygenation on room air thus far, no lower extremity peripheral edema. IV Solu-Medrol, SVN continuous albuterol/ipratropium per RT. EKG, chest x-ray, labs pending. COVID/influenza swab requested. EKG without obvious ischemic changes. Chest x-ray single view. Impressions: ?Bronchial wall thickening suggesting bronchitis.? Tele radiology report COVID/flu/RSV swab negative. Lungs clear, significantly improved. Symptomatically improved, ambulation trial was well as tolerated. Prednisone prescription sent to his pharmacy. Also albuterol inhaler home pack with spacer in education. Encouraged also to resume/start his prescribed maintenance inhaled medication pulmonary regimen. Encouraged to stop smoking. Improved, stable, discharged home. Return precautions discussed Discharge Plan Departure Patient Disposition: Home Clinical Impression: COPD exacerbation, Currently smokes tobacco, Dyspnea Instructions: DI for Chronic Obstructive Pulmonary Disease, Reasons to Quit Smoking, How to Quit Smoking Activity Restrictions/Additional Instructions: History of COPD, many years tobacco smoking, still tobacco smoking, recent cough and increased shortness of breath. Normal oxygenation. Diffuse wheezing initially. IV steroid given. Continuous breathing treatments given. Symptoms improved. No oxygen requirement. Able to tolerate ambulation trial well. Encouraged to stop smoking. Encouraged to use his inhaled pulmonary medication regimen. Prednisone oral pulse dosing for the next few days. Rescue inhaler albuterol prescribed with use of spacer, to use 2 puffs 4 times daily if needed. Your encouraged to stop smoking. Recheck symptoms with your regular doctor in the next couple of days. Return to this/nearest emergency department for any change worsening symptoms or any concerns prior Prescriptions: New prednisone 20 mg tablet 40 mg PO DAILY 5 Days Qty: 10 0RF No Action aspirin 81 MG tablet,delayed release (DR/EC) 81 mg PO QDAY Qty: 30 umeclidinium 62.5 mcg/actuation blister with device 1 inh inhalation DAILY Qty: 30 11RF tiotropium bromide 2.5 mcg/actuation mist 2 puff inhalation DAILY Qty: 4 5RF atorvastatin 40 mg Tablet 40 mg PO DAILY spironolactone 25 mg Tablet 25 mg PO DAILY ramipril 10 mg Capsule 10 mg PO DAILY carvedilol 12.5 mg tablet 25 mg PO BID amitriptyline 10 mg tablet 10 mg PO DAILY pantoprazole 20 mg tablet,delayed release (DR/EC) 20 mg PO DAILY tiotropium bromide [Spiriva with HandiHaler] 18 mcg capsule, w/inhalation device 1 cap inhalation DAILY Qty: 1 11RF Rx Instructions: puncture 1 cap using device; one dose = 2 inhalations amlodipine 5 mg tablet 5 mg PO DAILY Anoro Ellipta 62.5-25 mcg/actuation blister with device 1 inh inhalation DAILY Qty: 60 5RF Referrals: Nadeem Hess MD [Primary Care Provider] - Stand Alone Forms: Patient Portal/API/Survey
--- NOTE | 2024-11-03 05:10 | EKG_ITS ---
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
[2024-11-03] MEDS: ALBUTEROL/IPRATROPIUM 3 ML AMPUL INH ×2 (05:23→05:32)
[2024-11-03] MEDS: methylPREDNISolone 125 MG/2 ML VIAL IV (05:25)
--- NOTE | 2024-11-03 05:29 | PC.NURSE ---
Pt states that he has some emphysema, and inhaler at home but has not yet used. Pt states that he also has not been taking anything for the cold symptoms that he has had over the last 3 days which has lead to worsening breathing.
[2024-11-03 05:31] LABS: Add Manual Diff / Slide Review NO; Basophils Absolute Auto 100 /uL (0-100); Eosinophils Absolute Auto 400 /uL (0-450); Eosinophils Percent Auto 5.2 % (2-4); Hematocrit 47.5 % (41-53); Hemoglobin 16.5 g/dL (13.5-17.5); Lymphocytes Absolute Auto 1300 /uL (1100-4500); Lymphocytes Percent Auto 17.8 % (25-40); Mean Corpuscular HGB Conc 34.8 % (30-36); Mean Corpuscular Hemoglobin 32.2 PG (26-34); Mean Corpuscular Volume 92.6 fL (80-100); Monocytes Absolute Auto 600 /uL (0-900); Monocytes Percent Auto 7.6 % (3-14); Neutrophils Absolute Auto 5000 /uL (1500-7000); Neutrophils Percent Auto 68.4 % (50-75); Platelet Count 228 X10^3/uL (150-400); Red Blood Cell Count 5.13 X10^6/uL (4.5-5.9); Red Cell Distribution Width 13.1 % (11.6-14.8); White Blood Cell Count 7.3 X10^3/uL (4.5-11.0)
[2024-11-03] MEDS: MAGNESIUM SULFATE 2 GM/50 ML PIGGYBACK IV (05:38)
[2024-11-03 05:41] LABS: Alanine Aminotransferase 22 IU/L (<50); Albumin 4.6 g/dL (3.5-5.0); Albumin Globulin Ratio 1.4 (1.0-2.8); Alkaline Phosphatase 75 U/L (38-126); Aspartate Aminotransferase 24 IU/L (17-59); BUN Creatinine Ratio 14.1 (6-22); Bilirubin Total 1.3 mg/dL (0.2-1.3); Blood Urea Nitrogen 13 mg/dL (9-20); Calcium 9.4 mg/dL (8.4-10.2); Carbon Dioxide 26 mmol/L (22-32); Chloride 102 mmol/L (98-107); Creatine Kinase 61 U/L (55-170); Estimated Glomerular Filt Rate > 60 mL/min (>60); Globulin 3.3 g/dL (1.7-4.1); Glucose 104 mg/dL (80-110); HEMOLYSIS < 15 (0-50); Lipase 104 U/L (23-300); Potassium 4.1 mmol/L (3.4-5.1); Sodium 136 mmol/L (137-145); Total Protein 7.9 g/dL (6.3-8.2)
[2024-11-03] MEDS: ALBUTEROL 2.5 MG/3 ML NEB (ADULT) 5 MG INH ×2 (05:51→06:22)
[2024-11-03 05:53] LABS: Troponin I < 0.012 ng/mL (0.01-0.034)
[2024-11-03 06:15] LABS: Influenza A - CEPHEID Flu A NEGATIVE (NEGATIVE); Influenza B - CEPHEID Flu B NEGATIVE (NEGATIVE); Respiratory Syncytial Virus Negative (Negative)
[2024-11-03 06:22] LABS: COVID-19 CEPHEID 4-PLEX PCR Negative (Negative)
--- NOTE | 2024-11-03 06:58 | PC.NURSE ---
Walkiing oxygen trial. Walked about 200 ft O2 sat stayed at 92%-93%. Advised pt of how to use spacer and inhaler.
[2024-11-03] MEDS: ALBUTEROL HFA PREPACK 1 BOX MISC (07:02)
== END 2024-11-03 07:13 | disposition home or self-care (01) ==
PROVIDERS: Emergency Provider Emergency Medicine; PCP Family Medicine
DX: J44.1 Chronic obstructive pulmonary disease with (acute) exacerbation (principal); R05.9 Cough, unspecified; Z86.79 Personal history of other diseases of the circulatory system; Z95.5 Presence of coronary angioplasty implant and graft; Z79.82 Long term (current) use of aspirin; I10 Essential (primary) hypertension; I48.91 Unspecified atrial fibrillation; F17.210 Nicotine dependence, cigarettes, uncomplicated; R06.00 Dyspnea, unspecified
CPT/HCPCS: 0241U; 36415; 71045; 80053; 82550; 83690; 84484; 85025; 93005; 94640; 96365; 96375; 99284; 99285; J2919; J3475; J7613

== ENCOUNTER → 2025-07-11 08:46 | Outpatient (CLI) | payer MEDICARE, OTHER, SELFPAY | PROVIDERS: PCP Family Medicine; Visit Provider Registered Nurse | DX: R30.0 Dysuria (principal) | CPT/HCPCS: 87086 ==

== ENCOUNTER → 2025-07-14 08:39 | Outpatient (CLI) | payer MEDICARE, OTHER, SELFPAY | PROVIDERS: PCP Family Medicine; Visit Provider Urology | DX: R30.0 Dysuria (principal); N30.10 Interstitial cystitis (chronic) without hematuria | CPT/HCPCS: 51700; 81002; 87086; J1644; J3301; J3490 ==

== ENCOUNTER → 2025-07-31 09:43 | Outpatient (CLI) | payer MEDICARE, OTHER, SELFPAY | PROVIDERS: PCP Family Medicine; Visit Provider Urology | DX: R39.9 Unspecified symptoms and signs involving the genitourinary system (principal) | CPT/HCPCS: 87086 ==

== ENCOUNTER → 2025-08-07 10:10 | Outpatient (CLI) | payer MEDICARE, OTHER, SELFPAY | PROVIDERS: PCP Family Medicine; Visit Provider Urology | DX: N30.10 Interstitial cystitis (chronic) without hematuria (principal); R39.9 Unspecified symptoms and signs involving the genitourinary system | CPT/HCPCS: 51700; 81002; 87086; J1644; J3301; J3490 ==